=== PATIENT | male | born 1955 | race African-American/Black ===

== ENCOUNTER 2017-09-01 17:25 | Emergency (ER) | payer OTHER, MEDICARE ==
[~2017-09-01] VITALS: Ht 180.3 cm; Wt 56.8 kg
[~2017-09-01 17:25] MED LIST: TYLENOL 325MG325 MG PO
[2017-09-01 17:29] VITALS: TEMP 98.8
[2017-09-01] MEDS ORDERED: NORVASC 5MG5 MG/TAB PO (17:58)
[2017-09-01] MEDS ORDERED: ZYLOPRIM 300MG300 MG PO (17:58)
[2017-09-01 18:02] LABS: BASO % 0.4 % (0.0-2.0); EOS # 0.1 (0.0-0.7); EOS % 0.7 % (0-4.0); GRAN # 4.6 (1.4-6.5); GRAN % 66.4 % (42.2-75.2); HEMOGLOBIN 11.6 g/dl (13.5-18.0); LYMPH # 1.6 (1.2-3.4); LYMPH % 23.1 % (20.0-51.0); MEAN CELL VOLUME 89 fl (80.0-100.0); MEAN CORPUSCULAR HEMOGLOBIN 29 pg (27.0-31.0); MEAN CORPUSCULAR HGB CONC 32 g/dl (33.0-37.0); MEAN PLATELET VOLUME 8.9 fl (7.4-10.4); MONO # 0.6 (0.1-0.6); MONO % 9.1 % (1.7-9.3); PLATELET COUNT 297 K/mm3 (130-400); RED BLOOD COUNT 4.07 M/mm3 (4.20-5.60); REDCELL DISTRIBUTION WIDTH-CV 19.2 % (11.5-14.5)
[2017-09-01 18:15] LABS: BILIRUBIN,TOTAL 0.7 mg/dL (0.0-1.0); CALCIUM 9.3 mg/dL (8.4-10.2); POTASSIUM 4.3 mmol/L (3.4-5.0); TOTAL PROTEIN 8.7 gm/dL (6.4-8.2); URIC ACID 4.2 mg/dL (3.5-8.5)
[2017-09-01 18:19] LABS: CREATININE, serum 7.25 mg/dL (0.66-1.25)
[2017-09-01 18:34] LABS: ERYTHROCYTE SEDIMENTATION RATE 83 mm/hr (0-30)
[2017-09-01] MEDS ORDERED: ZYBAN150 M1 (18:51)
[2017-09-01] MEDS ORDERED: CEFTIN500 MG (18:52)
[2017-09-01] MEDS ORDERED: SENSIPAR30 MG PO (18:52)
[2017-09-01] MEDS ORDERED: PERCOCET 325 MG1 TA2 PO ×2 (18:52→19:38)
[2017-09-01] MEDS ORDERED: CIPRO 500MG TA500 MG (18:53)
[2017-09-01] MEDS ORDERED: PREDNISONE20 MG PO (19:38)
[2017-09-01 19:45] VITALS: BP 136/96; PULSE 93
== END 2017-09-01 19:45 | disposition home or self-care (01) ==
LOC: COL.ER 17:25
PROVIDERS: Emergency Medicine
DX: I12.0 Hypertensive chronic kidney disease with stage 5 chronic kidney disease or end stage renal disease (principal); N18.6 End stage renal disease; I82.C11 Acute embolism and thrombosis of right internal jugular vein; M06.9 Rheumatoid arthritis, unspecified; I10 Essential (primary) hypertension; Z99.2 Dependence on renal dialysis
CPT/HCPCS: J7512

== ENCOUNTER 2019-04-05 01:27 | Inpatient (IN) | payer MEDICARE, OTHER ==
[2019-04-05] VITALS (10 sets, daily range): BP systolic 150–191; BP diastolic 58–95; PULSE 79–103; TEMP 97.4–98.4
[~2019-04-05] VITALS: Ht 332.7 cm; Wt 60.2 kg
[~2019-04-05 01:27] MED LIST changes: +CEFTIN500 MG; +CIPRO 500MG TA500 MG; +NORVASC 5MG5 MG/TAB PO; +PERCOCET 325 MG1 TA2 PO; +PREDNISONE20 MG PO; +SENSIPAR30 MG PO; +ZYBAN150 M1; +ZYLOPRIM 300MG300 MG PO
[2019-04-05] MEDS ORDERED: NORCO 325 MG-51 TAB PO (03:32)
[2019-04-05] MEDS ORDERED: NEURONTIN100 MG/CAP PO (03:32)
[2019-04-05] MEDS ORDERED: FLOMAX 0.40.4 MG/CAP PO (03:33)
[2019-04-05] MEDS ORDERED: LEVOXYL0.2 MG PO (03:33)
[2019-04-05 07:04] LABS: BASO % 0.2 % (0.0-2.0); EOS % 0.1 % (0-4.0); GRAN # 7.9 (1.4-6.5); GRAN % 86.5 % (42.2-75.2); LYMPH # 0.8 (1.2-3.4); LYMPH % 8.6 % (20.0-51.0); MEAN CELL VOLUME 95 fl (80.0-100.0); MEAN CORPUSCULAR HGB CONC 31 g/dl (33.0-37.0); MEAN PLATELET VOLUME 9.8 fl (7.4-10.4); MONO # 0.4 (0.1-0.6); MONO % 4.1 % (1.7-9.3); PLATELET COUNT 208 K/mm3 (130-400); RED BLOOD COUNT 2.61 M/mm3 (4.20-5.60); REDCELL DISTRIBUTION WIDTH-CV 15.4 % (11.5-14.5)
[2019-04-05 07:14] LABS: HEMATOCRIT 24.9 % (42.0-52.0); HEMOGLOBIN 7.8 g/dl (13.5-18.0); MEAN CORPUSCULAR HEMOGLOBIN 30 pg (27.0-31.0)
[2019-04-05 07:18] LABS: ALANINE AMINOTRANSFERASE < 6 U/L (21-72); ALBUMIN 4.3 gm/dL (3.5-5.0); ALKALINE PHOSPHATASE 482 U/L (50-136); ANION GAP 19 mmol/L (7-16); AST,SGOT 19 U/L (15-37); BILIRUBIN,TOTAL 0.3 mg/dL (0.0-1.0); BLOOD UREA NITROGEN 95 mg/dL (9-20); CALCIUM 9.9 mg/dL (8.4-10.2); CARBON DIOXIDE 20 mmol/L (22-30); CHLORIDE 104 mmol/L (98-107); CREATININE, serum 10.44 (0.66-1.25); GLUCOSE 140 mg/dL (74-106); SODIUM 142 mmol/L (137-145); TOTAL PROTEIN 8.3 gm/dL (6.4-8.2)
[2019-04-05 07:31] LABS: POTASSIUM 7.6 mmol/L (3.4-5.0)
[2019-04-06] VITALS (11 sets, daily range): BP systolic 99–136; BP diastolic 49–77; PULSE 48–87; TEMP 97.7–97.9
[2019-04-06 06:09] LABS: BASO % 0.1 % (0.0-2.0); GRAN # 7.8 (1.4-6.5); GRAN % 84.5 % (42.2-75.2); LYMPH # 0.9 (1.2-3.4); LYMPH % 9.4 % (20.0-51.0); MEAN CELL VOLUME 94 fl (80.0-100.0); MEAN CORPUSCULAR HGB CONC 32 g/dl (33.0-37.0); MEAN PLATELET VOLUME 10.2 fl (7.4-10.4); MONO # 0.5 (0.1-0.6); MONO % 5.7 % (1.7-9.3); PLATELET COUNT 207 K/mm3 (130-400); RED BLOOD COUNT 3.23 M/mm3 (4.20-5.60); REDCELL DISTRIBUTION WIDTH-CV 15.2 % (11.5-14.5)
[2019-04-06 06:25] LABS: ALBUMIN 3.6 gm/dL (3.5-5.0); CALCIUM 9.7 mg/dL (8.4-10.2); CREATININE, serum 5.66 (0.66-1.25)
[2019-04-06 06:35] LABS: HEMATOCRIT 30.2 % (42.0-52.0); HEMOGLOBIN 9.6 g/dl (13.5-18.0); MEAN CORPUSCULAR HEMOGLOBIN 30 pg (27.0-31.0)
[2019-04-07 04:00] VITALS: BP 96/56; PULSE 74; TEMP 97.8
[2019-04-07 08:22] VITALS: BP 97/54; PULSE 75; TEMP 98.8
[2019-04-07 08:40] LABS: HEMATOCRIT 25.2 % (42.0-52.0); HEMOGLOBIN 7.9 g/dl (13.5-18.0)
[2019-04-07 12:43] VITALS: BP 94/41; PULSE 79; TEMP 98.1
[2019-04-07 16:00] VITALS: BP 104/43; PULSE 60; TEMP 97.2
[2019-04-07 19:19] VITALS: BP 98/48; PULSE 65; TEMP 97.6
[2019-04-07 23:36] VITALS: BP 94/58; PULSE 87; TEMP 97.6
[2019-04-08] VITALS (12 sets, daily range): BP systolic 94–112; BP diastolic 48–65; PULSE 64–97; TEMP 97.4–98.2
[2019-04-08 07:42] LABS: HEMOGLOBIN 6.6 g/dl (13.5-18.0)
[2019-04-08 07:43] LABS: HEMATOCRIT 20.6 % (42.0-52.0)
[2019-04-08 10:28] LABS: BILIRUBIN,TOTAL 0.2 mg/dL (0.0-1.0); CALCIUM 6.8 mg/dL (8.4-10.2); CREATININE, serum 8.08 (0.66-1.25); POTASSIUM 4.6 mmol/L (3.4-5.0); TOTAL PROTEIN 6.3 gm/dL (6.4-8.2)
[2019-04-08 10:35] LABS: KAPPA FREE LIGHT CHAIN-SERUM 289.84 mg/L (()); KAPPA LAMBDA RATIO 1.44 ratio (()); LAMDA FREE LIGHT CHAIN SERUM 201.26 mg/L (())
[2019-04-08 10:36] LABS: MEAN CELL VOLUME 94 fl (80.0-100.0); MEAN CORPUSCULAR HEMOGLOBIN 30 pg (27.0-31.0); MEAN CORPUSCULAR HGB CONC 32 g/dl (33.0-37.0); MEAN PLATELET VOLUME 10.2 fl (7.4-10.4); PLATELET COUNT 178 K/mm3 (130-400); RED BLOOD COUNT 2.21 M/mm3 (4.20-5.60); REDCELL DISTRIBUTION WIDTH-CV 15.3 % (11.5-14.5)
[2019-04-08 15:34] LABS: HEMATOCRIT 24.6 % (42.0-52.0); HEMOGLOBIN 7.9 g/dl (13.5-18.0)
[2019-04-09 03:37] VITALS: BP 100/57; PULSE 80; TEMP 97.8
[2019-04-09 07:27] VITALS: BP 98/62; PULSE 83; TEMP 98.4
[2019-04-09 16:10] VITALS: BP 125/59; PULSE 71; TEMP 97.9
[2019-04-09 20:17] VITALS: BP 131/61; PULSE 82; TEMP 97.7
[2019-04-10 04:51] VITALS: BP 118/64; PULSE 79; TEMP 98.7
[2019-04-10 07:08] LABS: BASO % 0.5 % (0.0-2.0); EOS # 0.2 (0.0-0.7); EOS % 4.6 % (0-4.0); GRAN # 2.6 (1.4-6.5); GRAN % 60.2 % (42.2-75.2); LYMPH # 1.1 (1.2-3.4); LYMPH % 26.4 % (20.0-51.0); MEAN CELL VOLUME 93 fl (80.0-100.0); MEAN CORPUSCULAR HGB CONC 31 g/dl (33.0-37.0); MEAN PLATELET VOLUME 9.7 fl (7.4-10.4); MONO # 0.4 (0.1-0.6); MONO % 8.1 % (1.7-9.3); PLATELET COUNT 212 K/mm3 (130-400); RED BLOOD COUNT 2.65 M/mm3 (4.20-5.60); REDCELL DISTRIBUTION WIDTH-CV 15.3 % (11.5-14.5)
[2019-04-10 07:11] LABS: ALBUMIN 3.1 gm/dL (3.5-5.0); CALCIUM 7.7 mg/dL (8.4-10.2); CREATININE, serum 7.17 (0.66-1.25); PHOSPHOROUS 5.1 mg/dL (2.5-4.5); POTASSIUM 3.8 mmol/L (3.4-5.0)
[2019-04-10 07:14] LABS: HEMATOCRIT 24.5 % (42.0-52.0); HEMOGLOBIN 7.7 g/dl (13.5-18.0); MEAN CORPUSCULAR HEMOGLOBIN 29 pg (27.0-31.0)
[2019-04-10 08:39] VITALS: BP 116/58; PULSE 75; TEMP 98.1
[2019-04-10 12:14] VITALS: BP 127/64; PULSE 80; TEMP 98
[2019-04-10 16:00] VITALS: BP 111/64; PULSE 73; TEMP 97.8
[2019-04-10 20:00] VITALS: BP 102/55; PULSE 87; TEMP 98.2
[2019-04-11 03:58] VITALS: BP 137/75; PULSE 80; TEMP 97.9
[2019-04-11 07:19] LABS: BASO % 0.2 % (0.0-2.0); EOS # 0.2 (0.0-0.7); EOS % 3.7 % (0-4.0); GRAN # 2.8 (1.4-6.5); GRAN % 61.3 % (42.2-75.2); LYMPH # 1.2 (1.2-3.4); LYMPH % 25.6 % (20.0-51.0); MEAN CELL VOLUME 92 fl (80.0-100.0); MEAN CORPUSCULAR HGB CONC 33 g/dl (33.0-37.0); MEAN PLATELET VOLUME 9.5 fl (7.4-10.4); MONO # 0.4 (0.1-0.6); PLATELET COUNT 217 K/mm3 (130-400); REDCELL DISTRIBUTION WIDTH-CV 15.2 % (11.5-14.5)
[2019-04-11 07:22] LABS: HEMOGLOBIN 7.8 g/dl (13.5-18.0); MEAN CORPUSCULAR HEMOGLOBIN 30 pg (27.0-31.0)
[2019-04-11 07:40] VITALS: BP 136/68; PULSE 84; TEMP 98.2
[2019-04-11 07:42] LABS: ALBUMIN 3.1 gm/dL (3.5-5.0); CALCIUM 7.9 mg/dL (8.4-10.2); CREATININE, serum 8.45 (0.66-1.25); PHOSPHOROUS 5.3 mg/dL (2.5-4.5); POTASSIUM 3.9 mmol/L (3.4-5.0)
[2019-04-11] MEDS ORDERED: PHOSLO667 MG PO (10:10)
[2019-04-11] MEDS ORDERED: REGLAN 5MG T5 MG/TAB PO (10:11)
[2019-04-11] MEDS ORDERED: SENSIPAR30 MG PO (10:12)
[2019-04-11] MEDS ORDERED: ASPIRIN 32325 MG/TA1 PO (10:13)
[2019-04-11 12:00] VITALS: BP 152/76; PULSE 80; TEMP 98.1
[2019-04-11 12:10] LABS: A/G RATIO (PEP) 0.85 (()); BETA GLOBULINS (PEP) 0.9 g/dL (0.7-1.2)
== END 2019-04-11 13:38 | DRG 469 ==
LOC: SURG 01:27
PROVIDERS: Physician Assistant; ADMIT Internal Medicine Nephrology
PROC: 0SRR019 Replacement of Right Hip Joint, Femoral Surface with Metal Synthetic Substitute, Cemented, Open Approach (ICD-10-PCS; principal; 2019-04-05)
PROC: 5A1D70Z Performance of Urinary Filtration, Intermittent, Less than 6 Hours Per Day (ICD-10-PCS; 2019-04-05)
DX: S72.001A Fracture of unspecified part of neck of right femur, initial encounter for closed fracture (principal); N18.6 End stage renal disease; N25.81 Secondary hyperparathyroidism of renal origin; I50.30 Unspecified diastolic (congestive) heart failure; I13.2 Hypertensive heart and chronic kidney disease with heart failure and with stage 5 chronic kidney disease, or end stage renal disease; M10.9 Gout, unspecified; G89.29 Other chronic pain; D63.1 Anemia in chronic kidney disease; F17.210 Nicotine dependence, cigarettes, uncomplicated; W01.0XXA Fall on same level from slipping, tripping and stumbling without subsequent striking against object, initial encounter; E87.5 Hyperkalemia; E89.0 Postprocedural hypothyroidism; R74.8 Abnormal levels of other serum enzymes; N40.0 Benign prostatic hyperplasia without lower urinary tract symptoms; Z99.2 Dependence on renal dialysis; Z79.891 Long term (current) use of opiate analgesic; Y93.89 Activity, other specified; Y92.009 Unspecified place in unspecified non-institutional (private) residence as the place of occurrence of the external cause; Y99.8 Other external cause status; Z91.19 Patient's noncompliance with other medical treatment and regimen
CPT/HCPCS: A9284; C1776; J0690; J0882; J1644; J2250; J2270; J2795; J3010; J7030; P9016; Q5105

== ENCOUNTER 2019-04-11 11:20 | Inpatient (IN) | payer MEDICARE, OTHER ==
[~2019-04-11] VITALS: Ht 180.3 cm; Wt 65.9 kg
[~2019-04-11 11:20] MED LIST changes: +ASPIRIN 32325 MG/TA1 PO; +FLOMAX 0.40.4 MG/CAP PO; +LEVOXYL0.2 MG PO; +NEURONTIN100 MG/CAP PO; +NORCO 325 MG-51 TAB PO; +PHOSLO667 MG PO; +REGLAN 5MG T5 MG/TAB PO
[2019-04-11 15:24] VITALS: BP 137/59; PULSE 81; TEMP 97.8
[2019-04-11 17:56] VITALS: BP 137/59; PULSE 81; TEMP 97.8
--- NOTE | 2019-04-11 19:55 | NUR ---
Patient came to [facility] Room #339 this afternoon following his dialysis. Patient did not want his lunch, but a friend dropped off some [employer] food for him, of which he took a few bites. Patient refused doing OT this afternoon. He did allow staff to stand him one time, but said a few cuse words in the process. Aquacel to Rt hip was changed out due to it being rolled up on his bottom and the wound was exposed. Small bloody drainage was observed to area, steri strips in place. Aquacel was secured over area. Will continue to monitor.
--- NOTE | 2019-04-11 20:00 | NUR ---
PATIENT LAYING IN BED DURING SHIFT CHANGE REPORT FROM DAY SHIFT NURSE. BED ALARM ENGAGED. DENIES ANY NEED FOR PAIN MED AT TIME OF REPORT.
--- NOTE | 2019-04-12 02:54 | NUR ---
Patient resting with eyes closed, does not awaken when room entered. Breathing nonlabored and even. Bed alarm engaged.
--- NOTE | 2019-04-12 04:39 | NUR ---
RESTING WITH EYES CLOSED, DOES NOT AWAKEN WHEN ROOM ENTERED, BREATHING NONLABORED AND EVEN. BED ALARM ENGAGED.
[2019-04-12 05:11] VITALS: BP 149/75; PULSE 92; TEMP 97.9
--- NOTE | 2019-04-12 07:10 | NUR ---
PATIENT RESTING IN BED WITH EYES CLOSED DURING SHIFT CHANGE REPORT GIVEN TO DAY SHIFT NURSE. DOES NOT AWAKEN WHEN ROOM ENTERED. BED ALARM ENGAGED.
[2019-04-12 13:56] LABS: BASO % 0.3 % (0.0-2.0); EOS # 0.1 (0.0-0.7); EOS % 2.3 % (0-4.0); GRAN # 2.8 (1.4-6.5); GRAN % 71.9 % (42.2-75.2); LYMPH # 0.8 (1.2-3.4); LYMPH % 19.8 % (20.0-51.0); MEAN CELL VOLUME 94 fl (80.0-100.0); MEAN CORPUSCULAR HGB CONC 32 g/dl (33.0-37.0); MEAN PLATELET VOLUME 9.2 fl (7.4-10.4); MONO # 0.2 (0.1-0.6); MONO % 5.2 % (1.7-9.3); PLATELET COUNT 198 K/mm3 (130-400); RED BLOOD COUNT 2.75 M/mm3 (4.20-5.60); REDCELL DISTRIBUTION WIDTH-CV 15.5 % (11.5-14.5)
[2019-04-12 13:59] LABS: HEMATOCRIT 25.7 % (42.0-52.0); HEMOGLOBIN 8.2 g/dl (13.5-18.0); MEAN CORPUSCULAR HEMOGLOBIN 30 pg (27.0-31.0)
[2019-04-12 14:14] LABS: CALCIUM 8.6 mg/dL (8.4-10.2); CREATININE, serum 3.94 (0.66-1.25); POTASSIUM 3.6 mmol/L (3.4-5.0)
--- NOTE | 2019-04-12 16:21 | NUR ---
Patient went to dialysis approx. 1300 today. This nurse received report from [place] stating that she pulled off 800 ml today. Current vital signs prior to returning back to [facility] are BP 135/70; P 93; T 98.6 per NANCY Coleman. SKI BINDING FITTER AND REPAIRER has left to go pickup driver patient from room #18. Patient's next dialysis day is Monday.
[2019-04-12 16:30] VITALS: BP 122/59; PULSE 93; TEMP 98.6
--- NOTE | 2019-04-12 17:12 | NUR ---
TAYLOR met with the patient to complete initial intake, as the patient is new to [facility]. The patient lives in [place] with his two sons': Lc (ph#[phone]) and Aristides and his grandchildren. He reports independence with ADLs prior to hospitalization and has a cane, walker, and wheelchair. The patient states that he does not have a PCP and states that he plans to get one through the [facility] after discharge. He states that if he ever needed medications, that he went through [facility] to get one. TAYLOR discussed setting up a family meeting. The patient did not appear interested in one, but was agreeable for TAYLOR to contact his son to get one set up. TAYLOR contacted Lc and he states that he could do a family meeting on Monday, 04/15, at 1100. TAYLOR to inform [facility] Director and will continue to follow.
--- NOTE | 2019-04-12 20:00 | NUR ---
Patient was asked to do therapies today, but refused most of them. He was very agitated with staff at times. He refused any pain meds, but was educated on the need to take them so that he can tolerate the therapies. Patient did eat some of his meals this shift along with his Nepro this evening. He is currently resting in bed, call light in reach, bed alarm on and SCD's on. This nurse reported off to night nurse.
--- NOTE | 2019-04-12 20:00 | NUR ---
PT RESTING IN BED. 2:1 REPOSITIONED. PT C/O RT HIP PAIN. YELLS OUT WITH REPOSITIONING. DISCUSSED IMPORTANCE OF PAIN MED ALLOWS HIM TO MOVE EASIER. PT AGREED TO PAIN MED NOW. SCD'S ON BILAT.
--- NOTE | 2019-04-12 21:00 | NUR ---
PAIN BETTER NOW. PT WANTS TO TRANSFER TO RECLINER. MAX 1:1 PIVOT TRANSFER TO RECLINER. FEET ELEVATED. CHAIR ALARM SET. CALL LIGHT IN REACH. TOOK HS SNACK. NO FURTHER NEEDS AT THIS TIME.
--- NOTE | 2019-04-13 02:00 | NUR ---
PT READY TO RETURN TO BED. 2:1 TRANSFER. PT TOLERATED WELL WITH WALKER. PT AGREEABLE TO SCD'S. NOTED BRENNAN ROLED OFF PARTIAL INCISION. REPLACED DRSG AT THIS TIME. INCISION WELL APRROXIMATED. MIN DRAINAGE. PT VERY HUNGRY TONIGHT. OFFERED HALF SANDWICH. PT VERY [place]. PT COMPLIANT WITH CARES THIS SHIFT THUS FAR. CALL LIGHT IN REACH. BED ALARM SET.
[2019-04-13 04:39] VITALS: BP 135/59; PULSE 78; TEMP 98.5
--- NOTE | 2019-04-13 08:35 | NUR ---
Report from NANCY Turner. Set up assist for breakfast provided while pt in bed. OT working with pt on dressing, he is sitting bedside, took pills whole with water. Pt is disagreeable with OT, unable to multitask multiple questions/choices and gets frustrated, tells OT not to rust an old man. Received norco at 0631 and rates pain 2/10 at this time. Pt in yellow gown/grippers/band. Has coband around LFA fistula w/o drainage. Hands are very disfigured.
[2019-04-13 16:46] VITALS: BP 119/61; PULSE 92; TEMP 98.2
--- NOTE | 2019-04-13 18:13 | NUR ---
Bed alarm on, call lt in reach, pt wants to eat mac and cheese and chicken from outside source.
--- NOTE | 2019-04-13 21:00 | NUR ---
PT UP TO BSC. HAD LG LOOSE BROWN STOOL. THEN TRANSFERRED TO RECLINER. SEE MAR FOR PAIN MED GIVEN. CHAIR ALARM SET. CALL LIGHT IN REACH. NO OTHER NEEDS AT THIS TIME.
--- NOTE | 2019-04-14 01:00 | NUR ---
PT READY TO GO TO BED. SLID DOWN IN RECLINER. 2:1 ASSIST TO BED. NEEDS MUCH CUING RE SAFETY WITH WALKER. CALL LIGHT IN REACH. BED ALARM SET. READY FOR SLEEP. DENIES NEED FOR PAIN MED.
[2019-04-14 05:25] VITALS: BP 137/67; PULSE 93; TEMP 98.6
--- NOTE | 2019-04-14 07:44 | NUR ---
Report from NANCY Turner. CHRISTINA Ferrell assisted pt OOB to chair with walker, pt set up for breakfast.
--- NOTE | 2019-04-14 08:03 | NUR ---
BLE up in recliner, TEDS, SCDs, yellow grippers/gown/wrist band in place, call lt in reach, alarm on. Took pills whole with water. Likes large ice cubes (only in kitchen now). Pt confused about not already taking his morning meds. Has nepro on tray, poor intake at breakfast.
--- NOTE | 2019-04-14 11:48 | NUR ---
Refused lunch except grapes, left nepro. Ordered dawson montalvo
--- NOTE | 2019-04-14 12:03 | NUR ---
Dr. Spivey verified pt's fluid restriction as 1500 ml/day and general diet d/t malnutrition.
[2019-04-14 15:08] VITALS: BP 110/56; PULSE 96; TEMP 98
--- NOTE | 2019-04-14 17:35 | NUR ---
Pt was assisted to chair for supper, foam in chair to make more comfortable, TEDS, yellow gown/grippers in place, call lt in reach, chair alarm on.
--- NOTE | 2019-04-14 19:31 | NUR ---
Pt falling asleep in chair while eating supper, watching FB game. Chair alarm on, call lt in reach. Report to NANCY Plascencia. Dressing to rt hip intact.
[2019-04-15 05:02] VITALS: BP 118/60; PULSE 90; TEMP 98.2
--- NOTE | 2019-04-15 06:46 | NUR ---
PT IN BED. DENIED NEED FOR PAIN MEDS. PT UP TO COMMODE AND VOIDED x1. JENNIFER CD&I.
--- NOTE | 2019-04-15 12:57 | NUR ---
SW attended a family meeting with the patient and his son, Lc. Also present was IPR Director, PT, OT, & ST. IPR Director started by explaining the purspose of the meeting. PT/OT/ST then discussed the patient's progress with therapy so far. The patient had declined therapy services this morning. The patient states that he is wanting to go home. The patient's attending, Dr. Spivey has been notified. The team answered all questions. SW to continue to follow.
--- NOTE | 2019-04-15 13:29 | NUR ---
Admission QIM scores were reviewed by the team. Code of 2 chosen for toileting hygiene was determined by team discussion to be the most usual performance before interventions for this patient during the assessment period. Code of 3 chosen for toilet transfers was determined by team discussion to be the most usual performance before interventions for this patient during the assessment period. Code of 3 chosen for sit to lying was determined by team discussion to be the most usual performance for this patient during the assessment period. Code of 3 chosen for lying to sitting on side of bed was determined by team discussion to be the most usual performance for this patient during the assessment period.--Trina Mack,
[2019-04-15 14:53] LABS: BASO % 0.2 % (0.0-2.0); EOS # 0.1 (0.0-0.7); EOS % 2.7 % (0-4.0); GRAN # 3.4 (1.4-6.5); GRAN % 70.6 % (42.2-75.2); HEMATOCRIT 24.2 % (42.0-52.0); HEMOGLOBIN 7.6 g/dl (13.5-18.0); LYMPH # 0.9 (1.2-3.4); LYMPH % 18.5 % (20.0-51.0); MEAN CELL VOLUME 96 fl (80.0-100.0); MEAN CORPUSCULAR HEMOGLOBIN 30 pg (27.0-31.0); MEAN CORPUSCULAR HGB CONC 31 g/dl (33.0-37.0); MEAN PLATELET VOLUME 9.5 fl (7.4-10.4); MONO # 0.4 (0.1-0.6); MONO % 7.4 % (1.7-9.3); PLATELET COUNT 202 K/mm3 (130-400); RED BLOOD COUNT 2.53 M/mm3 (4.20-5.60)
[2019-04-15 15:09] LABS: CALCIUM 9.2 mg/dL (8.4-10.2); CREATININE, serum 4.79 (0.66-1.25); POTASSIUM 3.8 mmol/L (3.4-5.0)
[2019-04-15 18:29] VITALS: BP 104/48; PULSE 94; TEMP 98.9
--- NOTE | 2019-04-15 20:00 | NUR ---
PATIENT RESTING IN BED DURING SHIFT CHANGE REPORT FROM DAY SHIFT NURSE. BED ALARM ENGAGED.
[2019-04-15 22:20] VITALS: BP 121/57; PULSE 91; TEMP 98.5
--- NOTE | 2019-04-15 22:39 | NUR ---
TRANSFUSION RATE SET AT 60ML/HR AT START OF TRANSFUSION.
--- NOTE | 2019-04-15 22:39 | NUR ---
BLOOD TRANSFUSION, 1ST UNIT INFUSION STARTED
[2019-04-15 22:53] VITALS: BP 130/59; PULSE 92; TEMP 99.4
--- NOTE | 2019-04-15 22:55 | NUR ---
PATIENT DENIES CHILLS/CHEST PAIN/SHORTNESS OF BREATH/BACK DISCOMFORT. BLOOD TRANSFUSION RATE INCREASED TO 110ML/HR.
[2019-04-15 23:45] VITALS: BP 147/64; PULSE 89; TEMP 99
--- NOTE | 2019-04-15 23:55 | NUR ---
BLOOD TRANSFUSION RATE INCREASED TO 120ML/HR AFTER PATIENT DENIES CHILLS/CHEST PAIN/SHORTNESS OF BREATH/BACK DISCOMFORT. PATIENT TOLERATING BLOOD TRANSFUSION WITH NO C/O.
--- NOTE | 2019-04-15 23:55 | NUR ---
PATIENT DENIES CHILLS/CHEST PAIN/SHORTNESS OF BREATHE/BACK PAIN. BLOOD TRANSFUSION RATE INCREASED TO 110ML/HR.
[2019-04-16 01:07] VITALS: BP 125/54; PULSE 100; TEMP 99.1
--- NOTE | 2019-04-16 01:41 | NUR ---
2ND UNIT LRPRBC PER DO PER IV SITE. CONTINUES TO DENY CHILLS,CHEST PAIN,SHORTNESS OF BREATHE,BACK PAIN. CHAIR ALARM ENGAGED
[2019-04-16 01:55] VITALS: BP 116/50; PULSE 95; TEMP 99
--- NOTE | 2019-04-16 02:02 | NUR ---
PATIENT DENIES CHEST PAIN,CHILLS,SOB,BACK PAIN. BLOOD INFUSION RATE INCREASED TO 110ML/HR.
[2019-04-16 02:52] VITALS: BP 144/88; PULSE 97; TEMP 99.2
--- NOTE | 2019-04-16 02:53 | NUR ---
DENIES CHEST PAIN/CHILLS/SHORTNESS OF BREATH/BACK DISCOMFORT. BLOOD TRANSFUSION RATE INCREASED TO 120ML/HR.
[2019-04-16 04:15] VITALS: BP 129/60; PULSE 91; TEMP 98.5
[2019-04-16 04:36] VITALS: BP 140/66; PULSE 86; TEMP 98.6
--- NOTE | 2019-04-16 07:46 | NUR ---
PATIENT RESTING IN BED DURING SHIFT CHANGE REPORT GIVEN TO DAY SHIFT NURSE. BED ALARM ENGAGED
--- NOTE | 2019-04-16 09:11 | NUR ---
PT REFUSING THERAPY AND SAID HIS SONS WILL COME TO PICK HIM UP TODAY.
[2019-04-16] MEDS ORDERED: REGLAN 5MG T5 MG/TAB PO (09:50)
[2019-04-16 10:21] LABS: HEMATOCRIT 28.8 % (42.0-52.0); HEMOGLOBIN 9.1 g/dl (13.5-18.0)
--- NOTE | 2019-04-16 10:55 | NUR ---
PT WORKED WITH OT AND GOT INTO WHEEL CHAIR. PT WAITING FOR ORDRES TO DISCHARGE.
--- NOTE | 2019-04-16 13:24 | NUR ---
The patient is still refusing therapy and would like to return home. Dr. Spivey and Dr. Collado were both notified. The patient is to discharge back home with his son's today, 04/16. TAYLOR followed up with the patient to discuss home health services. The patient reports that he is not interested in home health at this time, but he was interested in obtaining Medicare.gov's list of home health agencies that serve [place]. TAYLOR provided. Transportation back home to be provided by his son. The patient had no other questions or concerns for SW about discharge. TAYLOR presented and explained the IM form to the patient. The patient verbalized understanding, signed, and he was provided a copy. No additional needs at this time.
--- NOTE | 2019-04-16 15:34 | NUR ---
DISCHARGE ORDERS GIVEN AND QUESTIONS ANSWERED, PT TAKEN BY WHEEL CHAIR AND TRANSFERED SBA X1 TO VEHICLE.
== END 2019-04-16 15:35 | disposition home or self-care (01) | DRG 559 ==
PROVIDERS: Internal Medicine Nephrology; ADMIT Internal Medicine
PROC: 5A1D70Z Performance of Urinary Filtration, Intermittent, Less than 6 Hours Per Day (ICD-10-PCS; principal; 2019-04-12)
DX: S72.001D Fracture of unspecified part of neck of right femur, subsequent encounter for closed fracture with routine healing (principal); N18.6 End stage renal disease; I12.0 Hypertensive chronic kidney disease with stage 5 chronic kidney disease or end stage renal disease; E44.0 Moderate protein-calorie malnutrition; Z68.1 Body mass index [BMI] 19.9 or less, adult; W18.30XD Fall on same level, unspecified, subsequent encounter; G89.29 Other chronic pain; E83.51 Hypocalcemia; D63.1 Anemia in chronic kidney disease; N40.0 Benign prostatic hyperplasia without lower urinary tract symptoms; E89.0 Postprocedural hypothyroidism; E74.39 Other disorders of intestinal carbohydrate absorption; M10.9 Gout, unspecified; F17.210 Nicotine dependence, cigarettes, uncomplicated; Z79.82 Long term (current) use of aspirin; Z79.891 Long term (current) use of opiate analgesic; Z99.2 Dependence on renal dialysis; Z96.641 Presence of right artificial hip joint
CPT/HCPCS: 99222-AI; 99232-AI; J7030; P9016

== ENCOUNTER 2019-04-30 12:18 | Inpatient (IN) | payer MEDICARE, OTHER ==
[~2019-04-30] VITALS: Ht 172.7 cm; Wt 56.8 kg
[2019-04-30 13:12] LABS: BASO % 0.4 % (0.0-2.0); EOS % 0.5 % (0-4.0); GRAN % 75.2 % (42.2-75.2); LYMPH # 1.4 (1.2-3.4); LYMPH % 17.9 % (20.0-51.0); MEAN CELL VOLUME 94 fl (80.0-100.0); MEAN CORPUSCULAR HGB CONC 31 g/dl (33.0-37.0); MEAN PLATELET VOLUME 9.8 fl (7.4-10.4); MONO # 0.4 (0.1-0.6); MONO % 5.5 % (1.7-9.3); PLATELET COUNT 389 K/mm3 (130-400); RED BLOOD COUNT 3.09 M/mm3 (4.20-5.60); REDCELL DISTRIBUTION WIDTH-CV 17.4 % (11.5-14.5)
[2019-04-30 13:13] LABS: HEMATOCRIT 29.1 % (42.0-52.0); HEMOGLOBIN 8.9 g/dl (13.5-18.0); INR 1.1 (0.8-3.0); MEAN CORPUSCULAR HEMOGLOBIN 29 pg (27.0-31.0); PROTHROMBIN TIME 13.3 SECONDS (9.7-12.8)
[2019-04-30 13:24] LABS: ALANINE AMINOTRANSFERASE < 6 U/L (21-72); ALBUMIN 4.2 gm/dL (3.5-5.0); ALKALINE PHOSPHATASE 371 U/L (50-136); ANION GAP 22 mmol/L (7-16); AST,SGOT 20 U/L (15-37); BILIRUBIN,TOTAL 0.6 mg/dL (0.0-1.0); C-REACTIVE PROTEIN 8.9 mg/dL (0.0-0.9); CHLORIDE 110 mmol/L (98-107); GLUCOSE 108 mg/dL (74-106); SODIUM 146 mmol/L (137-145); TOTAL PROTEIN 8.6 gm/dL (6.4-8.2)
[2019-04-30 13:27] LABS: CREATININE, serum 16.47 (0.66-1.25)
[2019-04-30 13:36] LABS: BLOOD UREA NITROGEN 171 mg/dL (9-20)
[2019-04-30 13:41] LABS: CARBON DIOXIDE 14 mmol/L (22-30); POTASSIUM 8.6 mmol/L (3.4-5.0); TROPONIN-I 0.833 ng/mL (0.000-0.035)
[2019-04-30 16:48] LABS: POTASSIUM 4.8 mmol/L (3.4-5.0)
[2019-04-30 16:57] LABS: TROPONIN-I 3 HR POST INITIAL 0.867 ng/mL (0.000-0.034)
--- NOTE | 2019-04-30 19:07 | NUR ---
REPORT TO DARREN
--- NOTE | 2019-04-30 20:46 | NUR ---
dr. whaley called and ok with sunil graf, scds. chest xray and ekg in er. does not want pt on morphine or to have gibbons inserted.
--- NOTE | 2019-04-30 20:54 | NUR ---
Pt lying in bed. Is alert but not oriented. Yells out in pain but not able to describe pain. Pt unable to answer most questions. Assessment B done based on prior hospitalization. Pt on tele and is currently in normal sinus. Pt fractured R hip and is on dialysis. Tropoin was initially elevated but trending down. Pt to be NPO at midnight as he is going for stress test tomorrow. Has IV int to right forearm and fistula to left. Pt is on o2 at 2L. Call light within reach, will continue to monitor
[2019-04-30 21:37] VITALS: BP 136/61; PULSE 85; TEMP 98
[2019-05-01] VITALS (15 sets, daily range): BP systolic 89–148; BP diastolic 51–71; PULSE 61–90; TEMP 98–99.6
--- NOTE | 2019-05-01 04:14 | NUR ---
PRN norco given.
[2019-05-01 07:32] LABS: BASO % 0.5 % (0.0-2.0); EOS # 0.1 (0.0-0.7); EOS % 1.7 % (0-4.0); GRAN # 4.9 (1.4-6.5); GRAN % 74.5 % (42.2-75.2); LYMPH % 14.9 % (20.0-51.0); MEAN CELL VOLUME 93 fl (80.0-100.0); MEAN CORPUSCULAR HGB CONC 31 g/dl (33.0-37.0); MEAN PLATELET VOLUME 9.6 fl (7.4-10.4); MONO # 0.5 (0.1-0.6); MONO % 7.9 % (1.7-9.3); PLATELET COUNT 306 K/mm3 (130-400); RED BLOOD COUNT 2.66 M/mm3 (4.20-5.60)
[2019-05-01 07:35] LABS: HEMATOCRIT 24.7 % (42.0-52.0); HEMOGLOBIN 7.6 g/dl (13.5-18.0); MEAN CORPUSCULAR HEMOGLOBIN 29 pg (27.0-31.0)
[2019-05-01 07:42] LABS: ALBUMIN 3.2 gm/dL (3.5-5.0); CALCIUM 10.6 mg/dL (8.4-10.2); CREATININE, serum 9.62 (0.66-1.25); PHOSPHOROUS 7.9 mg/dL (2.5-4.5); POTASSIUM 5.7 mmol/L (3.4-5.0)
--- NOTE | 2019-05-01 08:00 | NUR ---
Patient resting in bed at this time. Patient sleeping at this time, rouses with some effort and answers some questions appropriately. Stage I ulcer on back of right heel, applied heel protectors. Bed alarm on, call light within reach.
--- NOTE | 2019-05-01 13:57 | NUR ---
Initial visit; Patient thanked Retail Event And Sales Assistant for looking in on him and offering spiritual care, also letting him know he will be offered Holy Communion while he is a patient here at [facility].
--- NOTE | 2019-05-01 17:28 | NUR ---
It Corporate Recruiter attempted intake with patient who is in dialysis. Patient's RN advised he was drowsy. Patient did let SW know he lives in [place] with his two sons before falling asleep. SW attempted to ask patient further questions with no response. SW will follow up tomorrow.
--- NOTE | 2019-05-01 18:32 | NUR ---
Patient returns to the floor from dialysis. Patient is sleeping but rousable, patient reports 8/10 pain when awake. Administered PRN pain medication. Patient states he will eat later when his pain medication takes effect. Patient denies needs at this time, call light within reach, bed alarm on.
--- NOTE | 2019-05-01 20:25 | NUR ---
Pt in bed, calling out for his son. Reminded patient where he is, verbalizes understanding. Takes HS meds at this time with dose of Dilaudid 0.5mg IVP for pain to right hip. SL to right forearm without redness or swelling. Has both feet in heel boots, soft heel to right foot. Has AV fistula to left forearm with good bruit. Keeps eyes closed while assessment is done.
[2019-05-02] VITALS (14 sets, daily range): BP systolic 85–126; BP diastolic 33–86; PULSE 67–99; TEMP 98–98.1
--- NOTE | 2019-05-02 03:30 | NUR ---
Patient has gown off and doesn't know where he is. Reoriented and blankets replaced. Denies needs at this time.
--- NOTE | 2019-05-02 04:30 | NUR ---
PATIENT MOANING, MEDICATED WITH AM MEDS INCLUDING NORCO 5/325MG 1 TAB AT THIS TIME. PT REPORTS HE IS HUNGRY, DID ADVISE WE WERE GOING TO KEEP HIM ONLY ON SIPS OF WATER UNTIL DOC'S DECIDE IF HE NEEDS A HEART CATH TODAY.
--- NOTE | 2019-05-02 04:55 | NUR ---
MEDICATED WITH DILAUDID 0.5MG IVP FOR CONTINUED RT LEG PAIN. ATTEMPTED REPOSITIONING WITHOUT SUCCESS PT WAS YELLING TOO LOUDLY IN PAIN.
[2019-05-02 07:21] LABS: BASO % 0.5 % (0.0-2.0); EOS # 0.1 (0.0-0.7); GRAN # 4.7 (1.4-6.5); GRAN % 70.7 % (42.2-75.2); LYMPH # 1.1 (1.2-3.4); LYMPH % 16.4 % (20.0-51.0); MEAN CELL VOLUME 90 fl (80.0-100.0); MEAN CORPUSCULAR HGB CONC 32 g/dl (33.0-37.0); MEAN PLATELET VOLUME 9.8 fl (7.4-10.4); MONO # 0.6 (0.1-0.6); MONO % 9.6 % (1.7-9.3); PLATELET COUNT 308 K/mm3 (130-400)
[2019-05-02 07:23] LABS: HEMATOCRIT 30.5 % (42.0-52.0); HEMOGLOBIN 9.7 g/dl (13.5-18.0); MEAN CORPUSCULAR HEMOGLOBIN 29 pg (27.0-31.0)
[2019-05-02 07:24] LABS: CALCIUM 9.7 mg/dL (8.4-10.2); CREATININE, serum 7.2 (0.66-1.25); PHOSPHOROUS 6.8 mg/dL (2.5-4.5); POTASSIUM 4.7 mmol/L (3.4-5.0)
--- NOTE | 2019-05-02 08:00 | NUR ---
Patient resting in bed at this time. Patient periodically cries out in his sleep, when awake patient rates his pain 8/10, administered PRN pain medication per orders. Patient NPO for a cardiac cath and possible hip surgery today. Patient denies needs, call light within reach, bed alarm on.
--- NOTE | 2019-05-02 10:35 | NUR ---
TAYLOR met with the patient to complete initial assessment. The patient lives in [place] with his two sons. The patient has a cane and a walker and reports independence with ADLs. The patient reports he does not have a PCP and receives medications from [facility]. The patient has advanced directives but they designate his , unfortunately his passed way several months ago. The patient was interested in new DPOA-HC form. Form provided. financial services assistant will continue to follow to ensure a safe discharge.
--- NOTE | 2019-05-02 16:26 | NUR ---
SEE MERGE DOCUMENTATION FOR MEDICATION ADMINISTRATION TIMES AND INTRA/POST PROCEDURE SEDATION ASSESSMENTS. PT TRANSFERED TO PROCEDURE TABLE VIA SLIDE BOARD; RIGHT LEG SPLINTED WITH PILLOWS TO MAINTAIN POSITIONING. RIGHT DP/PT PULSES EASILY LOCATED WITH DOPPLER AFTER TRANSFER.
--- NOTE | 2019-05-02 17:30 | NUR ---
Pt transferred to 345 at this time. VS monitoring connected, VS's WNL. Bedside handoff to NANCY Lawson at this time. Right radial site assessed; TR band in place with 13mL air in band. Radial pulse palpable distal to band, SPO2 pleth wave adequate. Right foot DP pulses +2 at this time. All questions from pt and family answered.
--- NOTE | 2019-05-02 17:30 | NUR ---
Patient back to floor from open hearth laborer via bed. Patient resting in bed at this time, son at bedside. Puncture site in right radius with a TR band with [address] of pressure in place, puncture is CDI, pulse palpable in right hand. Bed alarm on, call light within reach.
--- NOTE | 2019-05-02 19:30 | NUR ---
COMPRESSION BAND DEFLATED BY 5 ML ORDERED, DURING SHIFT CHANGE REPORT BY DAY SHIFT NURSE, OBSERVED BLEEDING, BAND REINFLATED WITH 5 ML AND BLEEDING STOPPED, WILL RECHECK SITE PER POST PROCEDURE ORDERS. PATIENT WITH NO COMPLAINTS CURRENTLY.
--- NOTE | 2019-05-02 20:12 | NUR ---
NO ACTIVE BLEEDING WHEN COMPRESSION BAND DEFLATED BY 5 ML, DEFLATED COMPRESSION BAND COMPLETELY AND REMOVED AND DRESSING APPLIED PER POST PROCEDURE ORDERS. PATIENT C/O RIGHT LEG PAIN, INITIALLY ASKED FOR PAIN MED THEN DEMANDED TO HAVE COFFEE CAKE THAT WAS ON THE TV SHOW, FOR THIS NURSE TO PUSH ON THE TV "BUTTON" AND CHECK BEHIND THE TV STATING HE KNEW IT WAS THERE FOR STAFF TO GET FOR HIM, THEN PATIENT STARTED TO RAISE HIS VOICE AT STAFF STATING THAT STAFF WAS CAUSING THE PAIN IN HIS LEG INORDER FOR STAFF TO GIVE HIM MORE PAIN MEDS. WHEN ASKED IF PATIENT WAS HAVING PAIN, PATIENT DENIED PAIN AND DENIED NEEDING PAIN MEDS. REQUESTED AND GIVEN MORE APPLE JUICE AND ICE FOR WATER.
--- NOTE | 2019-05-02 20:20 | NUR ---
5 ML REMOVED FROM POST ANGIO DEVICE, NO BLEEDING OBSERVED. PATIENT WITH NO COMPLAINTS.
--- NOTE | 2019-05-02 21:18 | NUR ---
PATIENT INSISTANT HE CAN GET COFFEE CAKE IF TV IN HIS ROOM IS PUSHED, THAT IT IS A BUTTON AND REFUSING TO HAVE SL FLUSH DONE, TOOK SCHEDULED MEDS FOR HS. PATIENT INITIALLY REQUESTED APPLE JUICE THEN REFUSED. INITIALLY ASKED FOR PAIN PILL FOR RIGHT HIP PAIN THEN REFUSED AFTER STATING STAFF WAS MAKING HIM HAVE PAIN USING COMPUTERS.
--- NOTE | 2019-05-02 21:45 | NUR ---
PATIENT INTERMITTANTLY COOPERATIVE WITH STAFF, CONTINUES TO REFUSE PAIN, OBSERVING FACIAL GRIMACING BUT DENIES ANY NEEDS.
[2019-05-03 00:06] VITALS: BP 92/44; PULSE 79; TEMP 98.2
--- NOTE | 2019-05-03 03:30 | NUR ---
PATIENT REFUSING TO REPOSITION THIS SHIFT DUE TO DISCOMFORT DESPITE INFORMATION GIVEN TO HELP AVOID INCREASED SKIN PROBLEMS AND PREVENTION OF BLOOD CLOTS. REFUSES PAIN MEDS WHEN OFFER, PATIENT COMPLAINING HE DOES NOT NEED ANY PAIN MEDS.
[2019-05-03 05:02] VITALS: BP 140/81; PULSE 77; TEMP 98.4
[2019-05-03 07:37] LABS: BASO % 0.3 % (0.0-2.0); EOS # 0.1 (0.0-0.7); EOS % 1.9 % (0-4.0); GRAN # 4.7 (1.4-6.5); GRAN % 72.7 % (42.2-75.2); HEMATOCRIT 30.4 % (42.0-52.0); HEMOGLOBIN 9.6 g/dl (13.5-18.0); LYMPH % 14.9 % (20.0-51.0); MEAN CELL VOLUME 91 fl (80.0-100.0); MEAN CORPUSCULAR HEMOGLOBIN 29 pg (27.0-31.0); MEAN CORPUSCULAR HGB CONC 32 g/dl (33.0-37.0); MEAN PLATELET VOLUME 9.7 fl (7.4-10.4); MONO # 0.6 (0.1-0.6); MONO % 9.6 % (1.7-9.3); PLATELET COUNT 308 K/mm3 (130-400); RED BLOOD COUNT 3.34 M/mm3 (4.20-5.60); REDCELL DISTRIBUTION WIDTH-CV 17.7 % (11.5-14.5)
--- NOTE | 2019-05-03 07:50 | NUR ---
PATIENT RESTING IN BED DURING SHIFT CHANGE REPORT. PATIENT COOPERATIVE AND ANSWERS QUESTIONS APPROPRIATELY TO DAY SHIFT NURSE.
[2019-05-03 07:53] LABS: CALCIUM 8.2 mg/dL (8.4-10.2); CREATININE, serum 8.26 (0.66-1.25); PHOSPHOROUS 6.8 mg/dL (2.5-4.5); POTASSIUM 4.9 mmol/L (3.4-5.0)
[2019-05-03 08:00] VITALS: BP 140/65; PULSE 86; TEMP 98.2
--- NOTE | 2019-05-03 08:15 | NUR ---
Lying in bed with eyes open. Complains of pain in right hip. 1+ edema noted to right thigh. Stage 1 pressure ulcer on right heel. Heel protectors are in place. Patient rolled to left side to use bedpan. No skin break down noted on back or buttocks. Patient tolerates rolling poorly. No BM, was able to pas flatus. Patient wiped. Will go to dialysis at this time.
[2019-05-03 11:39] VITALS: BP 111/61; PULSE 77; TEMP 97.5
--- NOTE | 2019-05-03 11:58 | NUR ---
Tare Worker notified by RN, Marsha that patient to transfer to [facility] today.
--- NOTE | 2019-05-03 12:00 | NUR ---
Patient brought back to room from dialysis via bed. Rates pain 4/10 in right hip and says that he feels pretty good right now. While at dialysis the patient's son brought him McDonalds to eat. Patient denies wanting to eat at this time. Denies further needs.
--- NOTE | 2019-05-03 15:46 | NUR ---
Lying in bed with eyes open. Rates pain 5/10 in right hip. Denies need for pain medication at this time. Denies anything further.
[2019-05-03 16:25] VITALS: BP 113/55; PULSE 77; TEMP 98.5
--- NOTE | 2019-05-03 17:31 | NUR ---
Patient accepted to [facility] room 5103. Contacted the patient's son, Hung, and received authorization to transfer patient via EMS to [facility], verified by NANCY Chavez. Paperwork completed at this time.
--- NOTE | 2019-05-03 17:38 | NUR ---
Bolivar administered to patient to provide pain relief while being transported to [facility] and also for repositioning from bed to EMS cot.
--- NOTE | 2019-05-03 17:56 | NUR ---
Report called to NANCY Barbour, at [facility].
--- NOTE | 2019-05-03 18:18 | NUR ---
Lying in bed with eyes open. Explain to the patient that the EMS should be arriving to pick him up to take him to [facility]. Patient says that his pain is doing okay at this time, 06/10. Denies needs.
--- NOTE | 2019-05-03 18:30 | NUR ---
Lying in bed with eyes closed. Resp even and unlabored. No signs or symptoms of discomfort noted at this time.
--- NOTE | 2019-05-03 19:56 | NUR ---
EMS arrived to unit and transferred patient. All pt belongings with him.
== END 2019-05-03 19:30 | disposition short-term general hospital (02) | DRG 640 ==
LOC: COL.ER 12:18 → MEDICAL 14:06 → SURG 14:06
PROVIDERS: Emergency Medicine; ADMIT Internal Medicine Nephrology
PROC: 5A1D70Z Performance of Urinary Filtration, Intermittent, Less than 6 Hours Per Day (ICD-10-PCS; principal; 2019-04-30)
PROC: 4A023N7 Measurement of Cardiac Sampling and Pressure, Left Heart, Percutaneous Approach (ICD-10-PCS; 2019-05-02)
PROC: B2111ZZ Fluoroscopy of Multiple Coronary Arteries using Low Osmolar Contrast (ICD-10-PCS; 2019-05-02)
DX: E87.5 Hyperkalemia (principal); N18.6 End stage renal disease; I21.A1 Myocardial infarction type 2; I13.2 Hypertensive heart and chronic kidney disease with heart failure and with stage 5 chronic kidney disease, or end stage renal disease; I50.32 Chronic diastolic (congestive) heart failure; M97.01XA Periprosthetic fracture around internal prosthetic right hip joint, initial encounter; M84.459A Pathological fracture, hip, unspecified, initial encounter for fracture; E44.0 Moderate protein-calorie malnutrition; D63.1 Anemia in chronic kidney disease; G89.29 Other chronic pain; E89.0 Postprocedural hypothyroidism; M10.9 Gout, unspecified; N40.0 Benign prostatic hyperplasia without lower urinary tract symptoms; L89.611 Pressure ulcer of right heel, stage 1; E74.39 Other disorders of intestinal carbohydrate absorption; F17.210 Nicotine dependence, cigarettes, uncomplicated; Z79.82 Long term (current) use of aspirin; Z79.891 Long term (current) use of opiate analgesic; Z99.2 Dependence on renal dialysis; Z91.15 Patient's noncompliance with renal dialysis; Z87.11 Personal history of peptic ulcer disease
CPT/HCPCS: OP; A9500; C1769; C1887; J0610; J1170; J1644; J1815; J2250; J2785; J3010; J7030; P9016; Q9967

== ENCOUNTER 2020-05-22 15:12 | Inpatient (IN) | payer MEDICARE, OTHER ==
[~2020-05-22] VITALS: Ht 180.3 cm; Wt 46.4 kg
[~2020-05-22 15:12] MED LIST changes: +ASPIRIN 81M81 MG/TA2 PO; +DAZIDOX10 MG PO; +LIPITOR 40MG TA40 MG PO; +LOPRESSOR 225 MG/TAB PO; +MASON NATURAL S1 CAP; +VITAMIN D 400400 IU PO
--- NOTE | 2020-05-22 15:30 | NUR ---
Pt arrived via EMS. Left upper arm is severily deformed. Dressing to left fistula. Quarter size scab seen near fistula, small amount of drainage noted. Patient has complaints of pain in his right hip, left arm, right arm and lower back. His skin is very very dry. He is malnourished and has a round stomach. Pt reports he has not had anything to eat today. Right LLE does have pitting edema. Dr Spivey has been notified of patients arrival. Diet order received. Also stated to not start an IV.
--- NOTE | 2020-05-22 16:19 | NUR ---
The patient's nurse reports the patient is in poor medical condition. Body Make Up Artist make APS report # [id number].
[2020-05-22 17:21] VITALS: BP 108/62; PULSE 70; TEMP 98.5
[2020-05-22] MEDS ORDERED: THERAGRAN TAB1 UDTAB PO (18:10)
[2020-05-22] MEDS ORDERED: NORCO 325 MG-51 TAB PO (18:13)
--- NOTE | 2020-05-22 18:41 | NUR ---
Pt's son was here for a brief time, but realized that Paulo would be staying the night and he then left. Pt has tolerated his meal with no complaints.
--- NOTE | 2020-05-22 18:58 | NUR ---
Report given. Pt resting with his eyes closed, even non labored breathing
--- NOTE | 2020-05-22 20:00 | NUR ---
Report received, assumed care for supervisor scouring pads. Assessmnet complete. VS stable. A&Ox3. Denies nausea/shortness of breath. States he is in pain to right shoulder/left upper extremity and back. States he has chronic pain and takes a "pain pill once a day but it dont work." Will call Dr. Spivey to check on pain medications. Plan of care discussed for this shift to include NPO at midnight/turning every two hours. Verbalizes understanding. States he didnt want to stay overnight and doesnt know what is going on or why he has been kept. States he wants to go home with son. Explained this nurse was waiting on orders to be placed and once complete I will come and discuss more of a plan with him. Verbalizes understanding. Call light in reach. will monitor.
--- NOTE | 2020-05-22 20:20 | NUR ---
Dr Spivey notified of patient being admitted and needing admission orders. Patient c/o pain to left arm/shoulder as well as back. New orders received for hydrocodone q4h PRN pain. States will enter admission orders from home.
[2020-05-22 20:50] VITALS: BP 97/55; PULSE 69; TEMP 97.6
[2020-05-22 23:40] VITALS: BP 101/58; PULSE 65; TEMP 97.8
--- NOTE | 2020-05-23 00:15 | NUR ---
Spoke with Dr Spivey for clarification of Rocephin order due to no IV access and restricted extremities. New orders received to DC rocephin and start augmentin 500mg PO QD. Also clarified surgical consult order-changed as well per phone order to Dr. Duran-Dr Spivey states "has been notified."
--- NOTE | 2020-05-23 01:14 | NUR ---
Noco one tab given for pain to back/left upper extremity and right shoulder-rating pain 8/10 on pain scale-described as constant throbbing with sharp intermittent pains.
--- NOTE | 2020-05-23 03:22 | NUR ---
Repositioned to left side with pillow support to back/left upper extremity.
[2020-05-23 04:55] VITALS: BP 100/63; PULSE 59; TEMP 97.7
--- NOTE | 2020-05-23 05:17 | NUR ---
Has remained NPO since midnight. Received Loyall x 2 for left upper extremity/back pain. Repositioned in bed q2h with pillow support. No voids for this shift-minimal input-states he doesnt void often-dialysis patient. Still states he just wants to go home and didnt understand why he had to stay. Instructed Dr. Spivey would be here this AM to round and he could speak with him as to what the plan is. Verbalizes understanding/denies questions. Call light in reach. Will monitor.
--- NOTE | 2020-05-23 06:30 | NUR ---
Pt resting with eyes closed, even non labored breathing
[2020-05-23 07:11] LABS: EOS # 0.1 (0.0-0.7); EOS % 1.6 % (0-4.0); GRAN # 1.3 (1.4-6.5); GRAN % 42.1 % (42.2-75.2); HEMOGLOBIN 10.8 g/dl (13.5-18.0); LYMPH # 1.4 (1.2-3.4); LYMPH % 46.4 % (20.0-51.0); MEAN CELL VOLUME 104 fl (80.0-100.0); MEAN CORPUSCULAR HEMOGLOBIN 32 pg (27.0-31.0); MEAN CORPUSCULAR HGB CONC 31 g/dl (33.0-37.0); MONO # 0.3 (0.1-0.6); MONO % 8.6 % (1.7-9.3); PLATELET COUNT 134 K/mm3 (130-400); RED BLOOD COUNT 3.33 M/mm3 (4.20-5.60); REDCELL DISTRIBUTION WIDTH-CV 14.8 % (11.5-14.5)
[2020-05-23 07:16] LABS: HEMATOCRIT 34.5 % (42.0-52.0)
[2020-05-23 07:22] LABS: ALBUMIN 3.5 gm/dL (3.5-5.0); BILIRUBIN,TOTAL 0.5 mg/dL (0.0-1.0); CALCIUM 8.1 mg/dL (8.4-10.2); CREATININE, serum 4.57 (0.66-1.25); INR 1.2 (0.8-3.0); POTASSIUM 3.4 mmol/L (3.4-5.0); PROTHROMBIN TIME 12.9 SECONDS (9.7-12.8)
[2020-05-23 07:25] LABS: PARTIAL THROMBOPLASTIN TIME 37.5 SECONDS (26.0-37.0)
[2020-05-23 08:38] VITALS: BP 104/69; PULSE 66; TEMP 98.1
[2020-05-23 10:43] VITALS: BP 83/49; PULSE 72; TEMP 97.6
--- NOTE | 2020-05-23 11:05 | NUR ---
Dr Duran has been in to see patient. Discussed needing an ultrasound and informed patient that it would be Monday before any procedure would be done. Pt was not happy about having to stay. Continue to turn patient from his back to his right side. New orders received, will continue to monitor
--- NOTE | 2020-05-23 13:17 | NUR ---
Pt stated that he was not able to eat the potatoes or hamburger that was serviced. Stated that the potatoes were to rubbery and that he could not chew the hamburger. Ordered him to chopped turkey with gravy. He took one bite and stated he didn't want it. He was asked if he liked the flavor and he stated yes, but that he didn't want it.
--- NOTE | 2020-05-23 14:45 | NUR ---
SW reviewed documentation for patient. Previous indicates that an APS report has been made. Please see previous SW note. SW completed intake. Patient states that he lives with his son Ziggy [phone]. Patient states that son assists with most needs around the house. Patient provides that he does not know who his PCP is [facility] Patient provides that he plans to go home as soon as possible or when the physician releases him to go back home. SW will continue to follow.
[2020-05-23 15:42] VITALS: BP 78/55; PULSE 76; TEMP 97.6
[2020-05-23 19:31] VITALS: BP 105/62; PULSE 68; TEMP 97.4
--- NOTE | 2020-05-23 20:00 | NUR ---
Report received, assumed care for shift supervisor melting. Assessment complete. VS stable. A&Ox3-very drowsy. Denies nausea/shortness of breath. Rating pain to left hip/back 3/10-denies need for pain medication. Repositioned in bed with pillow support. Left upper extremity with severe deformity-sling on. Left forearm fistula with dressing intact. Plan of care discussed for this shift to inculde HS meds/pain meds/x rays/repositioning/monitoring fistula site. Verbalizes understanding/denies questions/concerns. Call light in reach. Will monitor.
[2020-05-24] VITALS (10 sets, daily range): BP systolic 60–113; BP diastolic 40–67; PULSE 65–85; TEMP 97.3–98.3
[2020-05-24 07:47] LABS: HEMATOCRIT 37.1 % (42.0-52.0); HEMOGLOBIN 12.3 g/dl (13.5-18.0); MEAN CELL VOLUME 100 fl (80.0-100.0); MEAN CORPUSCULAR HEMOGLOBIN 33 pg (27.0-31.0); MEAN CORPUSCULAR HGB CONC 33 g/dl (33.0-37.0); MEAN PLATELET VOLUME 10.5 fl (7.4-10.4); PLATELET COUNT 114 K/mm3 (130-400); RED BLOOD COUNT 3.71 M/mm3 (4.20-5.60); REDCELL DISTRIBUTION WIDTH-CV 14.7 % (11.5-14.5)
[2020-05-24 08:24] LABS: BAND 1 % (0-10); LYMPHOCYTE 51 % (20.0-51.0); METAMYELOCYTE 1 % (0-0); NEUTROPHILS 39 % (42.0-75.2)
[2020-05-24 08:25] LABS: PLATELET ESTIMATE NORMAL (NORMAL)
--- NOTE | 2020-05-24 09:00 | NUR ---
Assessment completed, alert/oriented, vital signs stable/ hypotensive at baseline but is asymptomatic, denies pain or discomfort at rest, patient has deformed left arm from humerous fx/ ortho consulted/ plans for x-ray to reassess, patient has neuropathy but is able to move arm slightly, good cap refill, fistula to left forearm has scabs/ ulcerations plans for surgery consult for possible IND, unable to obtain labs as patient has BUE restriction and multiple attmempts have been made to draw blood from feet with no luck/ i will notify , patient refused breafkast, denies needs at this time
--- NOTE | 2020-05-24 20:58 | NUR ---
Patient resting in bed with eyes closed upon enter the room. Patient opens eyes with calling his name. Appears very drowsy. Patient alert and oriented to person and place. Patient denies any pain or discomfort at this time. Left forearm fistula site dressing C/D/I. Shift assessment completed. Call light within reach. Patient denies any needs at this time.
--- NOTE | 2020-05-25 00:47 | NUR ---
Called Dr. Spivey at 23:55 pm regarding low BP 66/44. New order received to give IV fluid 100ml/hr for 5 hour total and D/C [place]. 22G IV inserted to right forearm by roundhouse worker. IV fluid running at 100ml/hr to right forearm. NPO started from midnight. Call light within reach. Will continue to monitor.
[2020-05-25 03:36] VITALS: BP 78/53; PULSE 72; TEMP 97.5
[2020-05-25 06:51] LABS: BASO % 0.7 % (0.0-2.0); EOS # 0.1 (0.0-0.7); EOS % 2.1 % (0-4.0); GRAN # 1.5 (1.4-6.5); GRAN % 54.2 % (42.2-75.2); HEMOGLOBIN 10.6 g/dl (13.5-18.0); LYMPH % 35.2 % (20.0-51.0); MEAN CORPUSCULAR HEMOGLOBIN 33 pg (27.0-31.0); MEAN CORPUSCULAR HGB CONC 31 g/dl (33.0-37.0); MEAN PLATELET VOLUME 10.3 fl (7.4-10.4); MONO # 0.2 (0.1-0.6); MONO % 7.4 % (1.7-9.3); PLATELET COUNT 114 K/mm3 (130-400); RED BLOOD COUNT 3.24 M/mm3 (4.20-5.60); REDCELL DISTRIBUTION WIDTH-CV 14.7 % (11.5-14.5)
[2020-05-25 07:00] LABS: ALBUMIN 3.4 gm/dL (3.5-5.0); BILIRUBIN,TOTAL 0.5 mg/dL (0.0-1.0); CALCIUM 7.5 mg/dL (8.4-10.2); CREATININE, serum 5.85 (0.66-1.25); POTASSIUM 3.2 mmol/L (3.4-5.0); TOTAL PROTEIN 6.6 gm/dL (6.4-8.2)
[2020-05-25 07:22] VITALS: BP 105/65; PULSE 68; TEMP 97.6
[2020-05-25 07:38] LABS: MEAN CELL VOLUME 105 fl (80.0-100.0)
--- NOTE | 2020-05-25 09:00 | NUR ---
Assessment completed, alert/oriented, vital signs stable/ hypotensive at baseline, denies pain, patient will be going to dialysis this mroning, he has been NPO for possible surgery to left arm fistula ulceration, heart RRR, lungs CTA/ no resp.difficulty, left arm humeral fx again noted/ orders from ortho to apply brace/ social work will be in contact with supply [employer]
--- NOTE | 2020-05-25 09:45 | NUR ---
transferred patient to dialysis in his bed
--- NOTE | 2020-05-25 13:04 | NUR ---
Patient tolerated HD tx today, removed 100 mL of fluid. Next HD tx planned for Monday05/27/2020 @ 0800.
--- NOTE | 2020-05-25 14:44 | NUR ---
Manager Mall collaborated with Dr. Spivey about discharge planning and Dr. Spivey strongly advised that patient needs placement. Dr. Spivey advised he has talked with [facility] in the past and also felt a referral could be sent to [facility] as both facilities can accept dialysis patients. TAYLOR met with patient who was unclear if he would be willing to go to a facility. Patient eventually states he would be willing to go somewhere but "has some business to take care of at home first". Patient states a delinquency prevention social worker from [employer] met with him earlier today. TAYLOR contacted Mere at [facility] and Inga at [facility] and faxed referrals. TAYLOR also left a message for Jacqueline, MARLENY Manager Mall and will continue to follow.
[2020-05-25 16:24] VITALS: BP 93/60; PULSE 68; TEMP 97.5
--- NOTE | 2020-05-25 20:00 | NUR ---
Assessment complete. Patient is slightly drowsy but is fully oriented; He has a flat affect and appears uninterested. Left forearm fistula has bruit/thrill present; pseudoaneursym beneath fistula is covered with gauze/tape. Left hand to forearm has dependent edema present. Patient's abdomen is distended and firm with hypoactive BS. Will continue to monitor,
[2020-05-25 20:30] VITALS: BP 92/56; PULSE 72; TEMP 97.3
[2020-05-26] VITALS (14 sets, daily range): BP systolic 85–106; BP diastolic 50–64; PULSE 61–75; TEMP 97.3–97.8
[2020-05-26 07:04] LABS: BASO % 1.1 % (0.0-2.0); EOS # 0.1 (0.0-0.7); GRAN # 1.4 (1.4-6.5); GRAN % 53.3 % (42.2-75.2); HEMOGLOBIN 10.2 g/dl (13.5-18.0); LYMPH # 0.9 (1.2-3.4); LYMPH % 33.7 % (20.0-51.0); MEAN CELL VOLUME 104 fl (80.0-100.0); MEAN CORPUSCULAR HEMOGLOBIN 32 pg (27.0-31.0); MEAN CORPUSCULAR HGB CONC 31 g/dl (33.0-37.0); MEAN PLATELET VOLUME 9.9 fl (7.4-10.4); MONO # 0.2 (0.1-0.6); MONO % 8.5 % (1.7-9.3); PLATELET COUNT 114 K/mm3 (130-400); REDCELL DISTRIBUTION WIDTH-CV 14.6 % (11.5-14.5)
[2020-05-26 07:06] LABS: HEMATOCRIT 33.4 % (42.0-52.0)
[2020-05-26 07:19] LABS: ALBUMIN 3.3 gm/dL (3.5-5.0); BILIRUBIN,TOTAL 0.5 mg/dL (0.0-1.0); CALCIUM 7.7 mg/dL (8.4-10.2); CREATININE, serum 3.83 (0.66-1.25); POTASSIUM 3.2 mmol/L (3.4-5.0); TOTAL PROTEIN 6.4 gm/dL (6.4-8.2)
--- NOTE | 2020-05-26 07:30 | NUR ---
Pt resing in bed. Assessment as charted. Left upper arm deformity due to humerus fx. Lt forearm fistula thrill and bruit present. Lt hand edematous. CMS cks WNL. Pt denies c/o pain to Lt hand. Abdoment soft and distended, X4 bowel sounds present, pt reports passing flatus, BM 05/24. INt to Rt forearm. Pt denies no pain at rest.
--- NOTE | 2020-05-26 11:06 | NUR ---
Assessment complete. PAtient laying in bed resting at time of assessment. He awoke easily to verbal stimulation. He is aware of his POC today and understands that he will be going down to surgery. Denies pain at this time, states that he only really feels pain when being moved around. Left are fistula has good thrill and bruit a this time, scabbing noted. Visible dislocation of left upper arm is obvious as well. Will continue to monitor. Call light is in reach.
--- NOTE | 2020-05-26 11:15 | NUR ---
Pt resting, no changes from 729 assessment. No c/o pain at this time. Pt is still remaining NPO status.
--- NOTE | 2020-05-26 12:30 | NUR ---
Patient left floor for surgery at this time. Consent was signed. No pre-op fluids ordered.
--- NOTE | 2020-05-26 14:43 | NUR ---
Patient arrived back to the floor at this time. He is alert and oriented, minor drowsiness but requesting to eat at this time. no complaints of pain or discomfort at this time. Vitals being monitored per protocol. Will continue to monitor closely. Call light is in reach.
--- NOTE | 2020-05-26 17:05 | NUR ---
Professional Advisor met with patient and Dr. Spivey to discuss discharge planning. At first, patient states he has business to handle at home but upon further discussion, patient states he is agreeable to a short term SNF stay. TAYLOR followed up with [facility]. Both declined the referral. TAYLOR faxed referrals to [facility], [facility], and [facility] and will continue to follow.
--- NOTE | 2020-05-26 17:48 | NUR ---
Patient has remained stable since arriving back from surgery. He did report some pain in his left arm after but this was after associated from slip box changer was moving it around attempting to put a brace on. A brace in general is unable to be used due to the severity of the fracture. Blood pressures have remained soft, but stable. Fistula site is wrapped in guaze and is currently CD&I, with no issues. Post op vitals to be finished soon. Patient requested (and insisted) on having pizza but this is restricted due to his dialysis/renal diet, patient was frustrated about this. Alternate options were provided, patient decided on an alternative PB&J on toast. Patient is now continuing to nap. Will continue to monitor. Call light is in reach.
--- NOTE | 2020-05-26 20:35 | NUR ---
Patient laying in bed resting upon enter the room. Shift assessment completed and charted. Patient appears drowsy. Opens eyes upon calling his name. Patient denies any pain or discomfort. Denies SOB or dyspnea. Left forearm fistula site covered with gauze. Dressing C/D/I. Call light within reach. Patient denies any needs at this time.
[2020-05-27 20:00] VITALS: BP 81/49; PULSE 74; TEMP 97.6
--- NOTE | 2020-05-27 23:27 | NUR ---
PT SETTING UP IN BED, ASSESSMENT COMPLETE. DENIES PAIN , SOA OR DIZZY. MILD ADB DISTENTION. BOWEL SOUNDS POSTIVE. HAVING BMS. PT REPOSTIONED WITH SEVERAL PILLOWS. DENIES ANY NEEDS AT THIS TIME.
[2020-05-28 00:37] VITALS: BP 89/51; PULSE 72; TEMP 97.6
[2020-05-28 04:52] VITALS: BP 110/69; PULSE 64; TEMP 97.5
--- NOTE | 2020-05-28 05:02 | NUR ---
PT HAD A UNEVENTFUL NIGHT. TYL GIVEN FOR AVALOS AND RESOLVED W TYLENOL. DOES NOT LIKE TO BE REPOSTIONED OR BOTHERED AT NIGHT. NEEDS MET.
[2020-05-28 08:29] VITALS: BP 84/59; PULSE 81; TEMP 97.8
--- NOTE | 2020-05-28 08:56 | NUR ---
Automatic Oven Operator was contacted by Sammie at [facility] who advised they cannot meet patient's needs. Anabella at [facility] advised they have had patient before but cannot take him at this time because they do not have transportation to [place] for dialysis three times a week. Cy at [facility] declined referral as patient's family owes $60,000 from when patient's was there before she passed. SW faxed a referral to [facility] and updated Dr. Spivey.
--- NOTE | 2020-05-28 10:23 | NUR ---
Assessment completed, alert/oriented, vital signs stable, denies pain, heart RRR/distal pulses are palapble, lugns CTA/ no resp.difficulty noted, patient did eat some breakfast this morning, he reports sore throat from surgery the yesterday, left arm displaced/ fracture/ unable to apply brace as patients arm is so deformed and out of allignment, social work is working on discharge planning/ placement, COVID is pending for discharge plans, he denies other needs at this time
[2020-05-28 12:00] VITALS: BP 86/60; PULSE 83; TEMP 97.6
[2020-05-28 14:22] LABS: CALCIUM 7.2 mg/dL (8.4-10.2); CREATININE, serum 4.66 (0.66-1.25); POTASSIUM 3.1 mmol/L (3.4-5.0)
[2020-05-28 15:25] LABS: ALBUMIN 3.1 gm/dL (3.5-5.0); BILIRUBIN,TOTAL 0.5 mg/dL (0.0-1.0); TOTAL PROTEIN 6.2 gm/dL (6.4-8.2)
[2020-05-28 16:35] LABS: HEMATOCRIT 31.9 % (42.0-52.0); HEMOGLOBIN 10.2 g/dl (13.5-18.0); MEAN CELL VOLUME 102 fl (80.0-100.0); MEAN CORPUSCULAR HEMOGLOBIN 33 pg (27.0-31.0); MEAN CORPUSCULAR HGB CONC 32 g/dl (33.0-37.0); MEAN PLATELET VOLUME 10.4 fl (7.4-10.4); PLATELET COUNT 129 K/mm3 (130-400); RED BLOOD COUNT 3.12 M/mm3 (4.20-5.60); REDCELL DISTRIBUTION WIDTH-CV 14.7 % (11.5-14.5)
[2020-05-28 16:41] VITALS: BP 86/60; PULSE 83; TEMP 97.6
--- NOTE | 2020-05-28 16:43 | NUR ---
The patient to discharge today, 05/28 to [facility] for post acute rehab. The patient and the patient's son Lc were in agreenace. SW faxed discharge orders and Covid results. There are no additional needs.
--- NOTE | 2020-05-28 18:31 | NUR ---
patient transferring to [facility], IV removed from right arm, left arm humeral fx in sling upon discharge, incontinent care provided prior to D/C, attempted to call report but was on hold for 5 minutes and hung up
== END 2020-05-28 19:06 | DRG 314 ==
LOC: MEDICAL 15:12
PROVIDERS: ADMIT Internal Medicine Nephrology
PROC: 0HBEXZZ Excision of Left Lower Arm Skin, External Approach (ICD-10-PCS; principal; 2020-05-22)
DX: T82.510A Breakdown (mechanical) of surgically created arteriovenous fistula, initial encounter (principal); N18.6 End stage renal disease; E43 Unspecified severe protein-calorie malnutrition; I12.0 Hypertensive chronic kidney disease with stage 5 chronic kidney disease or end stage renal disease; Z68.1 Body mass index [BMI] 19.9 or less, adult; E21.2 Other hyperparathyroidism; E03.9 Hypothyroidism, unspecified; M10.9 Gout, unspecified; N40.0 Benign prostatic hyperplasia without lower urinary tract symptoms; S42.332G Displaced oblique fracture of shaft of humerus, left arm, subsequent encounter for fracture with delayed healing; M81.0 Age-related osteoporosis without current pathological fracture; I25.2 Old myocardial infarction; Z99.2 Dependence on renal dialysis; Z20.822 Contact with and (suspected) exposure to COVID-19; Y83.8 Other surgical procedures as the cause of abnormal reaction of the patient, or of later complication, without mention of misadventure at the time of the procedure
CPT/HCPCS: J0690; J2704; J7030; J7040

== ENCOUNTER → 2020-06-12 | Outpatient (CLI) | payer MEDICARE, OTHER ==
[~2020-06-12] MED LIST changes: +ANTACID ULTRA1000 M1 PO; +ANTI-DIARRHEAL2 MG PO; +B-121000 MCG PO; +CALCIUM ANTACI500 MG PO; +CARNITOR100 MG/M1 PO; +CARNITOR330 MG PO; +CATAPRES 0.1MG0.1 MG PO; +CEFAZOLIN1 G1 IV; +COLACE 100100 MG/CAP PO; +DULCOLAX S10 MG/SUPP RC; +FOLIC ACID 11 MG/TA1 PO; +HYDROCORTISON28.4 GM TP; +LIORESAL 1010 MG/TAB PO; +MELATONIN3 M1 PO; +MILK OF MA400 MG/52 PO; +MIRALAX PA17 GM/Dose PO; +MUCINEX DM 30 M1 TE1; +NATURE'S BLEND100 M2 PO; +NORCO 325 MG-101 TAB PO; +PERCOCET 325 MG1 TAB PO; +PROAMATINE10 MG PO; +PROTONIX40 MG/Pack PO; +RENVELA800 MG PO; +THERAGRAN TAB1 UDTAB PO; +ZOFRAN 4MG T4 MG/TAB PO; +ZOLOFT 25MG25 MG PO
[2020-06-12 11:33] LABS: ALBUMIN 3.5 gm/dL (3.5-5.0); BILIRUBIN,TOTAL 0.5 mg/dL (0.0-1.0); CALCIUM 8.5 mg/dL (8.4-10.2); CREATININE, serum 1.16 (0.66-1.25); MAGNESIUM 1.8 mg/dL (1.6-2.3)
== END ==
LOC: ZLAB.STJ 11:02
PROVIDERS: Family Medicine
DX: I10 Essential (primary) hypertension (principal); E89.0 Postprocedural hypothyroidism

== ENCOUNTER 2020-06-15 19:26 | Emergency (ER) | payer MEDICARE, OTHER ==
[~2020-06-15] VITALS: Ht 180.3 cm; Wt 54.5 kg
[~2020-06-15 19:26] MED LIST changes: -ANTACID ULTRA1000 M1 PO; -ANTI-DIARRHEAL2 MG PO; -B-121000 MCG PO; -CALCIUM ANTACI500 MG PO; -CARNITOR100 MG/M1 PO; -CARNITOR330 MG PO; -CATAPRES 0.1MG0.1 MG PO; -CEFAZOLIN1 G1 IV; -COLACE 100100 MG/CAP PO; -DULCOLAX S10 MG/SUPP RC; -FOLIC ACID 11 MG/TA1 PO; -HYDROCORTISON28.4 GM TP; -LIORESAL 1010 MG/TAB PO; -MELATONIN3 M1 PO; -MILK OF MA400 MG/52 PO; -MIRALAX PA17 GM/Dose PO; -MUCINEX DM 30 M1 TE1; -NATURE'S BLEND100 M2 PO; -NORCO 325 MG-101 TAB PO; -PERCOCET 325 MG1 TAB PO; -PROAMATINE10 MG PO; -PROTONIX40 MG/Pack PO; -RENVELA800 MG PO; -ZOFRAN 4MG T4 MG/TAB PO; -ZOLOFT 25MG25 MG PO
[2020-06-15 19:42] VITALS: TEMP 98
[2020-06-15 20:41] LABS: BASO % 0.9 % (0.0-2.0); EOS # 0.1 (0.0-0.7); EOS % 3.7 % (0-4.0); GRAN # 1.8 (1.4-6.5); LYMPH % 29.1 % (20.0-51.0); MEAN CELL VOLUME 102 fl (80.0-100.0); MEAN CORPUSCULAR HEMOGLOBIN 33 pg (27.0-31.0); MEAN CORPUSCULAR HGB CONC 33 g/dl (33.0-37.0); MEAN PLATELET VOLUME 12.3 fl (7.4-10.4); MONO # 0.4 (0.1-0.6); MONO % 11.3 % (1.7-9.3); PLATELET COUNT 369 K/mm3 (130-400); REDCELL DISTRIBUTION WIDTH-CV 17.2 % (11.5-14.5)
[2020-06-15 20:50] LABS: HEMATOCRIT 30.7 % (42.0-52.0)
[2020-06-15 20:55] LABS: ALBUMIN 3.6 gm/dL (3.5-5.0); BILIRUBIN,TOTAL 0.3 mg/dL (0.0-1.0); CALCIUM 9.2 mg/dL (8.4-10.2); CREATININE, serum 2.74 (0.66-1.25); TOTAL PROTEIN 6.9 gm/dL (6.4-8.2)
[2020-06-15 22:54] VITALS: BP 127/76; PULSE 104
== END 2020-06-15 23:00 | disposition home or self-care (01) ==
LOC: COL.ER 19:26
PROVIDERS: Family Medicine
DX: M79.602 Pain in left arm (principal); Z20.822 Contact with and (suspected) exposure to COVID-19; Z99.2 Dependence on renal dialysis; Z79.82 Long term (current) use of aspirin
CPT/HCPCS: J2405; J3010

== ENCOUNTER 2020-06-21 12:01 | Inpatient (IN) | payer MEDICARE, OTHER ==
[~2020-06-21] VITALS: Ht 182.9 cm; Wt 47.1 kg
[2020-06-21] VITALS (145 sets, daily range): BP systolic 168; BP diastolic 116; PULSE 107; TEMP 98.3; O2SAT 84–100
[2020-06-21 12:41] LABS: BASO % 0.8 % (0.0-2.0); EOS # 0.2 (0.0-0.7); EOS % 3.2 % (0-4.0); GRAN # 2.3 (1.4-6.5); GRAN % 46.9 % (42.2-75.2); INR 1.2 (0.8-3.0); LYMPH # 1.8 (1.2-3.4); LYMPH % 36.8 % (20.0-51.0); MEAN CELL VOLUME 108 fl (80.0-100.0); MEAN CORPUSCULAR HGB CONC 30 g/dl (33.0-37.0); MEAN PLATELET VOLUME 9.4 fl (7.4-10.4); MONO # 0.6 (0.1-0.6); MONO % 12.1 % (1.7-9.3); PLATELET COUNT 371 K/mm3 (130-400); PROTHROMBIN TIME 12.9 SECONDS (9.7-12.8); RED BLOOD COUNT 2.25 M/mm3 (4.20-5.60); REDCELL DISTRIBUTION WIDTH-CV 16.4 % (11.5-14.5)
[2020-06-21 12:42] LABS: HEMATOCRIT 24.4 % (42.0-52.0); HEMOGLOBIN 7.3 g/dl (13.5-18.0); MEAN CORPUSCULAR HEMOGLOBIN 32 pg (27.0-31.0)
[2020-06-21 12:59] LABS: TROPONIN-I 0.062 ng/mL (0.000-0.035)
[2020-06-21 13:18] LABS: ALBUMIN 3.3 gm/dL (3.5-5.0); BILIRUBIN,TOTAL 0.4 mg/dL (0.0-1.0); CALCIUM 8.2 mg/dL (8.4-10.2); CREATININE, serum 3.53 (0.66-1.25); POTASSIUM 4.2 mmol/L (3.4-5.0); TOTAL PROTEIN 6.9 gm/dL (6.4-8.2)
[2020-06-21 13:25] LABS: ARTERIAL BLD GAS TCO2 CT 28.8; ARTERIAL BLOOD GAS BASE EXCESS 0.7 (-2-2); ARTERIAL BLOOD GAS HCO3 27.1 meq/L (22-26); ARTERIAL BLOOD GAS PCO2 53.6 mmHg (35-45); ARTERIAL BLOOD GAS PO2 86.5 mmHg (80-100); ARTERIAL BLOOD GAS pH 7.32 (7.35-7.45)
[2020-06-21] MEDS ORDERED: LIORESAL 1010 MG/TAB PO (17:14)
[2020-06-21 19:31] LABS: ARTERIAL BLD GAS O2 SATURATION 98.4 % (92-100); ARTERIAL BLD GAS TCO2 CT 28.8; ARTERIAL BLOOD GAS BASE EXCESS 0.9 (-2-2); ARTERIAL BLOOD GAS HCO3 27.2 meq/L (22-26); ARTERIAL BLOOD GAS PCO2 52.6 mmHg (35-45); ARTERIAL BLOOD GAS PO2 122.7 mmHg (80-100); ARTERIAL BLOOD GAS pH 7.33 (7.35-7.45)
[2020-06-21 20:04] LABS: IRON,SERUM 59 ug/dL (35-150)
[2020-06-21 20:13] LABS: TOTAL IRON BINDING CAPACITY 185 ug/dL (261-462)
--- NOTE | 2020-06-21 21:48 | NUR ---
Patient arrived to unit via stretcher at 1850. Received report from NANCY Jimenez. All questions answered and all medications verified. Patient on 10L Non-rebreather mask. Patient non-responsive to questions but withdraws from pain and opens eyes spontaneously. VS as followed 98.3*F 107hr 13rr 168/116BP 99% SpO2. Will admit patient to ICU and resume care at this time.
[2020-06-21] MEDS ORDERED: ANTI-DIARRHEAL2 MG PO (21:59)
--- NOTE | 2020-06-21 22:02 | NUR ---
Unable to assess for suicide risk screening d/t patients altered mental status and patient being unable to answer questions. Will reassess when able.
--- NOTE | 2020-06-21 23:29 | NUR ---
No belongings on patient when patient arrived to unit.
[2020-06-22] VITALS (772 sets, daily range): BP systolic 110–168; BP diastolic 74–92; PULSE 84–135; TEMP 97.8–98.7; O2SAT 75–100
--- NOTE | 2020-06-22 00:44 | NUR ---
Nurse called [facility] and spoke with Dr. Alicea and notified physician that patient has increased thin secretions and is needing constant suction to help clear secretions and that patient can be heard sounding like he is gurlgling on secretions. Received one time order for a scopolamine patch.
--- NOTE | 2020-06-22 05:01 | NUR ---
200mls of output in suction cannister from oral and nasopharyngeal suctioning.
--- NOTE | 2020-06-22 07:15 | NUR ---
RECEIVED REPORT FROM NANCY SPEARS. VSS. RT AT BEDSIDE PLACING PT ON 4L VIA OM. DR BAUTISTA HERE AND NOTIFIED OF CONSULT, PHYSICIAN REQUESTS ABG, RT NOTIFIED.
[2020-06-22 07:29] LABS: ARTERIAL BLD GAS O2 SATURATION 97.5 % (92-100); ARTERIAL BLOOD GAS BASE EXCESS -2.1 (-2-2); ARTERIAL BLOOD GAS HCO3 23.6 meq/L (22-26); ARTERIAL BLOOD GAS PCO2 44.8 mmHg (35-45); ARTERIAL BLOOD GAS PO2 101.8 mmHg (80-100); ARTERIAL BLOOD GAS pH 7.34 (7.35-7.45)
--- NOTE | 2020-06-22 08:15 | NUR ---
ATTEMPTED TO PERFORM NURSING BEDSIDE SWALLOW. PT SHAKES HEAD AGGRESSIVELY AND YELLS "NO" AND CUSSES AND RN. PT UNABLE TO FOLLOW SIMPLE COMMANDS AT THIS TIME.
--- NOTE | 2020-06-22 08:30 | NUR ---
PT NOTED TO BE 83% AND PULLING OF OM. CONTACTED RT AND REQUESTED AT BEDSIDE TO HELP SUCTION PT. AFTER 20 MINS POX STILL REMAINING 85-88% AFTER OM TURNED UP TO 6L. PLACED ON NRP AT 12L FOR 20 MINS, POX INCREASED TO 97%. NANCY CAREY WITH DIALYSIS STARTED AT 0910. PT PLACED BACK ON 6L VIA OM AND POC MAINTAINS >90%. WILL MONITOR CLOSELY.
[2020-06-22 09:18] LABS: MEAN CELL VOLUME 107 fl (80.0-100.0); MEAN CORPUSCULAR HGB CONC 30 g/dl (33.0-37.0); PLATELET COUNT 364 K/mm3 (130-400); RED BLOOD COUNT 2.53 M/mm3 (4.20-5.60); REDCELL DISTRIBUTION WIDTH-CV 16.1 % (11.5-14.5)
[2020-06-22 09:23] LABS: HEMOGLOBIN 8.2 g/dl (13.5-18.0); MEAN CORPUSCULAR HEMOGLOBIN 32 pg (27.0-31.0)
[2020-06-22 09:28] LABS: ALBUMIN 3.4 gm/dL (3.5-5.0); BILIRUBIN,TOTAL 0.5 mg/dL (0.0-1.0); CALCIUM 8.4 mg/dL (8.4-10.2); CREATININE, serum 3.9 (0.66-1.25); MAGNESIUM 1.9 mg/dL (1.6-2.3); POTASSIUM 4.3 mmol/L (3.4-5.0); TOTAL PROTEIN 7.1 gm/dL (6.4-8.2)
[2020-06-22 09:43] LABS: TROPONIN-I 0.058 ng/mL (0.000-0.035)
--- NOTE | 2020-06-22 09:50 | NUR ---
NNACY LOCO WITH DIALYSIS NOTIFIES RN THAT PT'S HR IS IN THE 140s. NANCY LOCO SPEAKS TO DR KULKARNI ABOUT VS. NEW ORDERS RECEIVED, SEE MAR. HR DOES DECREASE TO 90-100s. ALL OTHER VSS. WILL MONITOR CLOSELY.
[2020-06-22 10:10] LABS: ANISOCYTOSIS 1+; BAND 3 % (0-10); HYPOCHROMIA 3+; LYMPHOCYTE 34 % (20.0-51.0); NEUTROPHILS 52 % (42.0-75.2); NUCLEATED RED BLOOD CELL 1 (0-6)
[2020-06-22 10:11] LABS: PLATELET ESTIMATE NORMAL (NORMAL); SCHISTOCYTES 1+
--- NOTE | 2020-06-22 10:35 | NUR ---
SPOKE TO DR KULKARNI ABOUT PT HARD STICK FO RLAB DRAWS, PHYSICIAN STATES NO PICC OR CENTRAL LINE AT THIS TIME. DISCUSSING POC WITH PHYSICIAN. NEW ORDERS RECEIVED.
--- NOTE | 2020-06-22 10:40 | NUR ---
Initial visit; Community Health Nurse Staff spoke with patient's nurse letting her know of the availability of spiritual care for Paulo. Community Health Nurse Staff will follow up.
[2020-06-22 14:43] LABS: ARTERIAL BLD GAS O2 SATURATION 96.1 % (92-100); ARTERIAL BLD GAS TCO2 CT 25.1; ARTERIAL BLOOD GAS BASE EXCESS -1.4 (-2-2); ARTERIAL BLOOD GAS HCO3 23.8 meq/L (22-26); ARTERIAL BLOOD GAS PCO2 42.2 mmHg (35-45); ARTERIAL BLOOD GAS pH 7.37 (7.35-7.45)
--- NOTE | 2020-06-22 15:19 | NUR ---
Medical Fee Clerk contacted the patient's son Lc regarding discharge plan. The plan is to return to [facility] to continue his post acute rehab. TAYLOR contacted Cheo with [facility]. Cheo reports they will be able to accept the patient back to resume post acute rehab, he sees no reason not to. Cheo reports they have no discharge date as of yet for the patient to transition home. TAYLOR faxed updates to Cheo.
--- NOTE | 2020-06-22 16:08 | NUR ---
Tobias tolerated HD tx today & removed 1L of fluid. Next HD tx planned for tomorrow, Monday06/23/20 @ 0800.
--- NOTE | 2020-06-22 16:51 | NUR ---
NOTIFIED DR KULKARNI OF PT'S HR 130s AND VERY RESTLESS. NEW ORDERS RECEIVED, SEE JUN.
--- NOTE | 2020-06-22 17:33 | NUR ---
DR SMALLS AT BEDSIDE FOR ASSESSMENT.
--- NOTE | 2020-06-22 20:05 | NUR ---
Received report from NANCY Russell. All medications verified and all questions answered. Patient resting in bed. Patient has mitt on right hand to keep patient from pulling at lines and oxygen mask. HR in the 130s and BP ranging from 150-160 SBP and 80-100 diastolic BP. All other VSS. Will resume care at this time.
--- NOTE | 2020-06-22 21:20 | NUR ---
Nurse called [facility] and spoke with Dr. Dowd and stated that patient is having heart rates ranging in the 130-150s and blood pressures ranging with systolic of 150-170s and diastolic of 80s-100s. Patient appearing agitated and continually trying to take of oxymask and pull at monitor chords as well as appearing restless. Patient pushing against staff when staff attempting to pull patient up in bed. Received orders for IV Ativan 2mg Q6hrs PRN.
--- NOTE | 2020-06-22 21:41 | NUR ---
Unable to complete suicide risk assessment d/t patient being unable to responds to questions appropriately d/t altered mental status. Will complete when able.
[2020-06-23] VITALS (732 sets, daily range): BP systolic 91–173; BP diastolic 61–90; PULSE 109–120; TEMP 97.4–98.6; O2SAT 64–100
[2020-06-23 06:12] LABS: MEAN CELL VOLUME 107 fl (80.0-100.0); MEAN CORPUSCULAR HGB CONC 30 g/dl (33.0-37.0); MEAN PLATELET VOLUME 9.2 fl (7.4-10.4); PLATELET COUNT 325 K/mm3 (130-400); RED BLOOD COUNT 2.44 M/mm3 (4.20-5.60)
[2020-06-23 06:17] LABS: HEMOGLOBIN 7.8 g/dl (13.5-18.0); MEAN CORPUSCULAR HEMOGLOBIN 32 pg (27.0-31.0)
[2020-06-23 06:22] LABS: ALBUMIN 3.4 gm/dL (3.5-5.0); CALCIUM 9.6 mg/dL (8.4-10.2); CREATININE, serum 2.64 (0.66-1.25); PHOSPHOROUS 5.1 mg/dL (2.5-4.5); POTASSIUM 4.2 mmol/L (3.4-5.0)
[2020-06-23 06:44] LABS: BAND 34 % (0-10); LYMPHOCYTE 22 % (20.0-51.0); NEUTROPHILS 41 % (42.0-75.2); PLATELET ESTIMATE NORMAL (NORMAL); SCHISTOCYTES 1+; TEAR DROP CELLS 1+
--- NOTE | 2020-06-23 06:45 | NUR ---
Dr. Garcia at patient bedside assessing patient left upper arm fracture. [facility] left humerus fracture brace then to place arm in sling after patient fitted for brace.
--- NOTE | 2020-06-23 07:05 | NUR ---
RECEIVED REPORT FROM NANCY SPEARS. PT RESTING EASILY. OCCASSIONAL RESTLESSNESS NOTED DURING REPORT. VSS. MITT TO RT HAND. PT ON 10L ON AM. BRIEF ON.
--- NOTE | 2020-06-23 07:50 | NUR ---
DR BAUTISTA AT BEDSIDE FOR ASSESSMENT REQUESTING NASAL TRUMPET TO BE REMOVED. PROCEDURE PERFORMED AT THIS TIME BY RN. PT TOLERATED WELL. VSS. NEW ORDERS RECEIVED.
--- NOTE | 2020-06-23 08:15 | NUR ---
POX 100%. O2 DECREASED TO 6L VIA OM.
[2020-06-23 10:33] LABS: PATHOLOGY DIFF REVIEW OK
--- NOTE | 2020-06-23 10:55 | NUR ---
DR KULKARNI AT BEDSIDE FOR ASSESSMENT. DISCUSSED HR EPISODE LAST NIGHT AND ATIVAN, PHYSICIAN STATES TO GO WITH PAIN CONTROL MEDICATIONS. DISCUSSED DR MOURA'S ORDERS TO GET HUMEROOUS BRACE AND THEN PLACE SLING, DR KULKARNI AGREES. DISCUSSED WITH DR KULKARNI ABOUT RN'S CONCERNS WITH PT NOT ABLE TO SIT STILL FOR MRI BRAIN D/T UNABLE TO FOLLOW COMMANDS. MULTIPLE ATTEMPTS MADE TO FEED OR HYDRATE PT BUT PT THRASHES AND SPITS OUT FLUIDS. EVEN WITH ATIVAN OR DILUADID USE PT DOES BECOME SLEEPY BUT HE DOES NOT SIT STILL IN HIS SLEEP AND CONSTANTLY IS MOVING HEAD AND ARMS EVEN IF ASLEEP. DR KULKARNI AWARE AND STATES TO NOT DO MRI BRAIN AT THIS TIME.
--- NOTE | 2020-06-23 11:52 | NUR ---
Solid Plasterer faxed updates to Cheo at [facility].
--- NOTE | 2020-06-23 12:30 | NUR ---
ATTEMPTED TO CALL [facility] PT'S SON. NO ANSWER
--- NOTE | 2020-06-23 13:50 | NUR ---
CONTACTED NURSE EXAMINER ORTHOPEDICS AND PROSTHETICS PER DR MOURA'S REQUEST TO OBTAIN AT LT HUMEROUS FX BRACE. HOWEVER, FACILITY IS AWARE OF THE PT AND TRIED TO FIT HIM ON 05/26/20 AND WAS UNABEL TO R/T UNABLE TO STRAIGHTEN ARM COMPLETELY. FACILITY STATES IF DR MOURA WOULD LIKE TO TALK TO ONE OF THEIR SPECIALISTS TO COME UP WITH A GAME PLAN HE CAN. CONTACTED DR MOURA'S NURSE AND UPDATED HER AND GAVE HER RN'S CALL BACK NUMBER. AWAITING FOR GEORGIBRENTON INSTRUCTIONS ABOUT POC.
--- NOTE | 2020-06-23 15:09 | NUR ---
Patient tolerated HD tx, restless entire tx even after Dilaudid given X1. Removed 3L of fluid. Next HD tx planned for tomorrow, Monday06/24/20.
--- NOTE | 2020-06-23 15:37 | NUR ---
ATTEMPTED TO CALL [facility], PT'S SON. NO ANSWER. RANG TWICE AND THEN GOES STRAIGHT TO VOICEMAIL THAT STATES IT HAS NOT BEEN SET UP.
--- NOTE | 2020-06-23 15:43 | NUR ---
SPOKE TO DR MOURA'S NURSE. DR MOURA SPOKE TO DANIEL AT [facility] AND MADE A PLAN TO GET A BRACE PUT ON TOMORROW. [facility] CALLED AND STATES THEY WILL BE HERE ABOUT 1600 ON 06/24/20 TO GET BRACE ON PT.
--- NOTE | 2020-06-23 20:04 | NUR ---
RECEIVED REPORT FROM NANCY NICHOLS. PATIENT FOUND TO BE CONFUSED WHICH WAS ASSESSED BASELINE PER SIMONE. PT WAS FIDGETING AND NEEDED REPOSITIONED. IV WAS IN PLACE. VSS. BRIEF IN PLACE. MIMI FRACTURE UNSPLINTED PER REPORT. OXYGEN VIA NC ON 4L. WAS ABLE TO CONSOLE PT. CALL LIGHT WITHIN REACH.
[2020-06-24] VITALS (600 sets, daily range): BP systolic 136–170; BP diastolic 76–108; PULSE 53–105; TEMP 97.5–98.3; O2SAT 80–100
[2020-06-24 05:54] LABS: MEAN CELL VOLUME 107 fl (80.0-100.0); MEAN CORPUSCULAR HGB CONC 30 g/dl (33.0-37.0); MEAN PLATELET VOLUME 9.1 fl (7.4-10.4); PLATELET COUNT 334 K/mm3 (130-400); REDCELL DISTRIBUTION WIDTH-CV 15.9 % (11.5-14.5)
[2020-06-24 05:56] LABS: HEMATOCRIT 26.8 % (42.0-52.0); MEAN CORPUSCULAR HEMOGLOBIN 32 pg (27.0-31.0)
[2020-06-24 06:05] LABS: ALBUMIN 3.8 gm/dL (3.5-5.0); CALCIUM 10.7 mg/dL (8.4-10.2); CREATININE, serum 2.13 (0.66-1.25); PHOSPHOROUS 4.4 mg/dL (2.5-4.5); POTASSIUM 3.9 mmol/L (3.4-5.0)
[2020-06-24 06:40] LABS: BAND 15 % (0-10); EOSINOPHIL 1 % (0-4); LYMPHOCYTE 19 % (20.0-51.0); NEUTROPHILS 62 % (42.0-75.2); PLATELET ESTIMATE NORMAL (NORMAL)
--- NOTE | 2020-06-24 10:30 | NUR ---
PATIENT REPOSITIONED FOR COMFORT. PRN DILAUDID GIVEN FOR PAIN. HE YELLS OUT WITH EVERY POSITION CHANGE. WILL CONTINUE TO KEEP COMFORTABLE POSSIBLE.
--- NOTE | 2020-06-24 11:00 | NUR ---
HAVE DISCUSSED NUTRITION WITH BOTH DR. BAUTISTA AND DR. KULKARNI. NO NEW ORDERS HAVE BEEN RECEIVED AT THIS TIME.
--- NOTE | 2020-06-24 15:30 | NUR ---
ADIEL MANAGER CUSTOM CALLED TO PLACE PATIENT ON BIPAP WHILE HE SLEEPS.
--- NOTE | 2020-06-24 16:30 | NUR ---
[facility] HERE TO PLACE SPLINT. DR. KULKARNI CALLED TO LET HIM KNOW THEY ARE HERE. HE HAD REQUESTED TO BE CALLED. HE DISCUSSED CASE WITH [facility]ICHA, [facility] AND [facility]. KULKARNI DECIDES TO CANCEL THE SPLINT PLACEMENT BECAUSE IT WOULD PLACE TOO MUCH PRESSURE ON THE FISTULA IN THE LEFT FOREARM.
--- NOTE | 2020-06-24 20:25 | NUR ---
PATIENT TALKS CONFUSING AT TIME WHEN NOT IN ROOM, HAS MOMENTS DURING ASSESSMENT PATIENT IS ALERT AND FOLLOWS COMMANDS, CAN EASILY BE DISTRACTED, LEFT ALONE PATIENT EITHER SLEEPS OR TALKS LOUDLY
[2020-06-25] VITALS (288 sets, daily range): BP systolic 100–157; BP diastolic 60–94; PULSE 83–105; TEMP 97.4–98.8; O2SAT 92–100
[2020-06-25 05:21] LABS: BASO % 0.2 % (0.0-2.0); EOS # 0.1 (0.0-0.7); EOS % 2.4 % (0-4.0); GRAN # 3.7 (1.4-6.5); LYMPH # 0.7 (1.2-3.4); LYMPH % 14.3 % (20.0-51.0); MEAN CORPUSCULAR HGB CONC 29 g/dl (33.0-37.0); MEAN PLATELET VOLUME 8.9 fl (7.4-10.4); MONO # 0.5 (0.1-0.6); MONO % 9.3 % (1.7-9.3); PLATELET COUNT 316 K/mm3 (130-400); RED BLOOD COUNT 2.28 M/mm3 (4.20-5.60)
[2020-06-25 05:27] LABS: HEMOGLOBIN 7.3 g/dl (13.5-18.0); MEAN CORPUSCULAR HEMOGLOBIN 32 pg (27.0-31.0)
[2020-06-25 05:28] LABS: HEMATOCRIT 25.5 % (42.0-52.0); MEAN CELL VOLUME 112 fl (80.0-100.0)
[2020-06-25 05:38] LABS: ALBUMIN 3.3 gm/dL (3.5-5.0); CALCIUM 9.7 mg/dL (8.4-10.2); CREATININE, serum 2.76 (0.66-1.25); PHOSPHOROUS 4.1 mg/dL (2.5-4.5); POTASSIUM 3.9 mmol/L (3.4-5.0)
[2020-06-25 06:08] LABS: TSH w REFLEX 37.4 uIU/mL (0.465-4.680)
--- NOTE | 2020-06-25 07:00 | NUR ---
RECEIVED REPORT FROM NANCY ORDOÑEZ. PT TALKING BUT DOES NOT MAKE SENSE ALWAYS AND GETS AGGRESSIVE OCCASSIONALLY. VSS. MITT ON RT HAND. PT ON 2L VIA NC. CALL LIGHT NEAR BY WITH TV ON TO HELP WITH DISTRACTION.
--- NOTE | 2020-06-25 10:52 | NUR ---
DR KULKARNI AT BEDSIDE FOR ASSESSMENT.
--- NOTE | 2020-06-25 11:33 | NUR ---
Impregnating Tank Operator staffed with the patient's nurse and Dr. Spivey. The patient has orders to transfer to the floor. PT/OT ordered. TAYLOR faxed updates to Cheo at [facility].
--- NOTE | 2020-06-25 11:37 | NUR ---
Patient tolerated HD tx today, removed 1L of fluid. Next planned HD tx on Monday06/27/20.
--- NOTE | 2020-06-25 11:53 | NUR ---
REPORT FROM GIVEN TO NANCY RUFF ON MEDICAL. PT TO EB TRANSFERRED TO 309. PT FINISHING UP DIALYSIS AND THEN WILL TRANSFER PT ON BED ON 2L VIA NC.
--- NOTE | 2020-06-25 12:18 | NUR ---
NICOLETTE MCCARTHY AT BEDSIDE VISITING. ON THE PHONE WITH DR KULKARNI.
--- NOTE | 2020-06-25 19:22 | NUR ---
PT HAD UNEVENTFUL DAY AFTER ARRIVAL TO MEDICAL FLOOR. HE REMAINS CONFUSED, AND SPEAKING IN A WORD SALAD. HE HAS REFUSED FOOD DESPITE MULTIPLE ATTEMPTS TO FEED HIM. THERE ARE NO OTHER CONCERNS AT THIS TIME.
[2020-06-26 03:07] VITALS: BP 113/60; PULSE 103; TEMP 98.5
[2020-06-26 07:49] VITALS: BP 119/59; PULSE 87; TEMP 97.5
--- NOTE | 2020-06-26 09:19 | NUR ---
Pt assessment complete. Pt has a student nurse caring for him today. Pt is alert able to tell us who he is and where he's at. Does have some confused speech. Denies any pain at this time, does flare up with movement. LUE elevated and positioned on a pillow. Strong pulse and brisk cap refill. Dressing to fistula CDI. Nephrology in to see patient at this time.
--- NOTE | 2020-06-26 10:00 | NUR ---
Initial visit; Patient thanked Sport Psychologist for visiting him and offering spiritual care.
[2020-06-26 11:59] VITALS: BP 141/77; PULSE 102; TEMP 98.3
--- NOTE | 2020-06-26 13:53 | NUR ---
Primary nurse was assisted with [phone] patient care by [facility] [employer] [employer] [employer] student Jake Stratton and [employer] instructor Michelle Cleary MSN, RN.
--- NOTE | 2020-06-26 15:43 | NUR ---
Vocational Guidance Counselor faxed clinical updates to Cheo at [facility].
[2020-06-26 16:00] VITALS: BP 144/56; PULSE 88; TEMP 98
--- NOTE | 2020-06-26 19:30 | NUR ---
Patient sitting up in the recliner. Mitt taken off right hand and telemetry discontinued per doctors orders. Alert and confused, has been yelling out intermittently. Has been refusing to eat and drink. Patient repositioned for comfort as needed. Pain medication give when requested. Call light within reach. Chair alarm on
[2020-06-26 20:29] VITALS: BP 132/53; PULSE 89; TEMP 97.9
[2020-06-27 03:26] VITALS: BP 123/67; PULSE 87; TEMP 98.1
--- NOTE | 2020-06-27 07:39 | NUR ---
Patient taken to dialysis by bed. A&Ox3. IV CDI. Denies pain and reports being comfortable in bed. No further needs expressed from the patient.
[2020-06-27 08:32] LABS: BASO % 0.7 % (0.0-2.0); EOS # 0.1 (0.0-0.7); EOS % 3.4 % (0-4.0); GRAN # 2.7 (1.4-6.5); GRAN % 65.6 % (42.2-75.2); HEMOGLOBIN 7.6 g/dl (13.5-18.0); LYMPH # 0.7 (1.2-3.4); LYMPH % 17.7 % (20.0-51.0); MEAN CELL VOLUME 103 fl (80.0-100.0); MEAN CORPUSCULAR HEMOGLOBIN 31 pg (27.0-31.0); MEAN CORPUSCULAR HGB CONC 30 g/dl (33.0-37.0); MONO # 0.5 (0.1-0.6); MONO % 11.9 % (1.7-9.3); PLATELET COUNT 252 K/mm3 (130-400); RED BLOOD COUNT 2.42 M/mm3 (4.20-5.60); REDCELL DISTRIBUTION WIDTH-CV 15.8 % (11.5-14.5)
[2020-06-27 08:41] LABS: CALCIUM 8.8 mg/dL (8.4-10.2); CREATININE, serum 2.97 (0.66-1.25); POTASSIUM 3.6 mmol/L (3.4-5.0)
[2020-06-27 12:00] VITALS: BP 95/57; PULSE 90; TEMP 97.7
[2020-06-27 16:40] VITALS: BP 102/49; PULSE 85; TEMP 98.6
--- NOTE | 2020-06-27 18:06 | NUR ---
Patient had an uneventful day. Had dialysis in the am and tolerated well. Has been resting in bed the rest of the shift and has not been yelling out. Alert and partially confused, nursing staff reorienting the patient as needed. Denies pain, reports some discomfort while laying in bed. Patient assisted with repositioning as needed. IV CDI. Fistula CDI. Call light within reach. Bed alarm on
[2020-06-27 19:24] VITALS: BP 91/51; PULSE 102; TEMP 98.1
[2020-06-27 23:07] VITALS: BP 113/63; PULSE 87; TEMP 97.7
[2020-06-28 03:19] VITALS: BP 100/64; PULSE 77; TEMP 97.8
--- NOTE | 2020-06-28 04:57 | NUR ---
PATIENT RESTED QUIETLY THROUGHOUT THE NIGHT. PRN PAIN MEDICATION ADMINISTERED X'S 1. PATIENT REPORTS HE IS FEELING CONSTIPATED AND HAVING A LOT OF GAS. WILL PASS THIS INFORMATION ONTO DAY SHIFT. NO OTHER ISSUES NOTED.
[2020-06-28 07:21] VITALS: BP 104/60; PULSE 84; TEMP 97.8
--- NOTE | 2020-06-28 08:04 | NUR ---
Patient was comfortable in bed, his left arm propted on a pillow for stability. Patient stated that he is needing to find his wallet. My supervising nurse informed the patient that his son has been contacted concerning his wallet, but has not yet returned call. Will be waiting for updates.
--- NOTE | 2020-06-28 10:06 | NUR ---
Patient used called light, to get assistance using the bathroom. He stated he felt the need to have a bowel movement. A bed cruz was placed under patient, and repositioned him so that he was comfortable. Patient called again, he did not have a bowel movement at this time. Seemed to be gas that is causing sensation.
--- NOTE | 2020-06-28 10:10 | NUR ---
Agree with students nurses assessment. Patient A&Ox3. VSS. IV CDI. Patient repositioned for comfort. Denies pain and discomfort. Nursing staff encouraging patient to increase PO intake. Patient states that he will try. No further needs expressed from the patient. Call light within reach
[2020-06-28 12:45] VITALS: BP 116/63; PULSE 84; TEMP 98.4
--- NOTE | 2020-06-28 13:58 | NUR ---
Went to check on patient and to reposition him in bed. He stated that he was experiencing pain in his right arm and lower shoulder. He said that light a massage relieves the pain, when the area is not massage the pain comes again.
--- NOTE | 2020-06-28 14:15 | NUR ---
Patient ordered his lunch, when it was brought to him he did not want to eat. He was offered to order something else, he stated that he did not want anything at this moment but would order something a little later.
--- NOTE | 2020-06-28 14:29 | NUR ---
[facility] charting reviewed by this instructor, agree with assessment and charting.
[2020-06-28 15:40] VITALS: BP 105/52; PULSE 88; TEMP 98.2
--- NOTE | 2020-06-28 17:12 | NUR ---
Patient had an uneventful day. A&Ox3. Repositioned as needed for comfort. VSS. IV CDI. Dr Spivey encouraged the patient to incease PO intake. Pain medication given when requested. Patient is still trying to have a BM, but is only passing gas. No further needs expressed from the patient. Call light within reach. Bed alarm on
--- NOTE | 2020-06-28 19:00 | NUR ---
Received report from Mary. Seen patient awake in bed. No other needs at this time. Call light within reach.
[2020-06-28 19:04] VITALS: BP 126/61; PULSE 78; TEMP 97.8
--- NOTE | 2020-06-28 20:15 | NUR ---
Assesment done. Patient denies pain. He is asking for vanilla ice cream. Repositioned patient. INT on right AC flushes well. Placed pillow under his left arm. Assisted patient in scooping some ice cream for easier intake.
[2020-06-28 22:30] VITALS: BP 124/63; PULSE 74; TEMP 97.6
[2020-06-29 03:47] VITALS: BP 126/68; PULSE 82; TEMP 97.5
--- NOTE | 2020-06-29 06:08 | NUR ---
Patient had uneventful night. He was asking what time is he going to be discharged. Repositioned patient as needed. No bowel movement noted. He denies pain all through night.
[2020-06-29 07:10] VITALS: BP 129/68; PULSE 89; TEMP 97.7
--- NOTE | 2020-06-29 07:23 | NUR ---
Patient was alert and oriented this morning. He was just receiving his breakfast when report was given. After patients food was set up, he was able to feed himself. The patient is still asking about his bag and wallet. He was informed that his son was contacted but no reply has been made yet. Patient stated that his son was the worst person to have his wallet, because all of his information and cards are in there.
--- NOTE | 2020-06-29 08:06 | NUR ---
Patient used his call light to get assisstance in repositioning, he also wanted some ice for his Ensure. Patient asked what time he would be going to Dialysis today, will try information for him.
[2020-06-29 09:32] LABS: MEAN CELL VOLUME 104 fl (80.0-100.0); MEAN CORPUSCULAR HGB CONC 31 g/dl (33.0-37.0); MEAN PLATELET VOLUME 9.5 fl (7.4-10.4); PLATELET COUNT 235 K/mm3 (130-400); RED BLOOD COUNT 2.55 M/mm3 (4.20-5.60); REDCELL DISTRIBUTION WIDTH-CV 16.3 % (11.5-14.5)
[2020-06-29 09:34] LABS: HEMATOCRIT 26.4 % (42.0-52.0); HEMOGLOBIN 8.1 g/dl (13.5-18.0); MEAN CORPUSCULAR HEMOGLOBIN 32 pg (27.0-31.0)
[2020-06-29 09:43] LABS: ALBUMIN 3.3 gm/dL (3.5-5.0); CALCIUM 8.4 mg/dL (8.4-10.2); CREATININE, serum 2.95 (0.66-1.25); PHOSPHOROUS 2.8 mg/dL (2.5-4.5); POTASSIUM 3.6 mmol/L (3.4-5.0)
[2020-06-29 09:56] LABS: ANISOCYTOSIS 1+; BASOPHIL 1 % (0-2); EOSINOPHIL 7 % (0-4); HYPOCHROMIA 4+; LYMPHOCYTE 23 % (20.0-51.0); METAMYELOCYTE 1 % (0-0); MYELOCYTE 2 % (0-0); NEUTROPHILS 55 % (42.0-75.2); NUCLEATED RED BLOOD CELL 1 (0-6); PLATELET ESTIMATE NORMAL (NORMAL)
[2020-06-29 11:52] VITALS: BP 113/53; PULSE 84; TEMP 98
--- NOTE | 2020-06-29 12:38 | NUR ---
Patient tolerated HD tx without any issues, removed 200 mL of fluid.
--- NOTE | 2020-06-29 13:19 | NUR ---
Vulcan Crewmember faxed negative COVID results to Cheo at [facility].
--- NOTE | 2020-06-29 13:40 | NUR ---
The patient is to tentatively discharge today, 06/29 to [facility] for post acute rehab. The patient is to be transported at 1500. SW contacted the patient's son, Lc and he was in agreeance. The team was in agreeance. SW faxed discharge orders. There are no additional needs.
--- NOTE | 2020-06-29 14:20 | NUR ---
WUSN assessment and charting reviewed by this instructor, agree with documentation.
--- NOTE | 2020-06-29 15:33 | NUR ---
PT IS AWAITING TRANSPORTATION FOR [facility]. NO CONCERNS.
[2020-06-29 15:43] VITALS: BP 113/53; PULSE 84; TEMP 98
== END 2020-06-29 16:30 | DRG 193 ==
LOC: COL.ER 12:01 → MEDICAL 14:48 → ICU 14:48 → MEDICAL 06-25 12:47
PROVIDERS: Emergency Medicine; Internal Medicine Pulmonary Disease; Nurse Practitioner; ADMIT Internal Medicine Nephrology
PROC: 5A1D70Z Performance of Urinary Filtration, Intermittent, Less than 6 Hours Per Day (ICD-10-PCS; principal; 2020-06-29)
DX: J18.9 Pneumonia, unspecified organism (principal); G93.41 Metabolic encephalopathy; E43 Unspecified severe protein-calorie malnutrition; N18.6 End stage renal disease; J96.01 Acute respiratory failure with hypoxia; E87.0 Hyperosmolality and hypernatremia; Z99.2 Dependence on renal dialysis; E21.2 Other hyperparathyroidism; E03.9 Hypothyroidism, unspecified; Z66 Do not resuscitate; I10 Essential (primary) hypertension; D63.1 Anemia in chronic kidney disease; R77.8 Other specified abnormalities of plasma proteins; I27.20 Pulmonary hypertension, unspecified; M10.9 Gout, unspecified; M81.0 Age-related osteoporosis without current pathological fracture; I25.2 Old myocardial infarction; N40.0 Benign prostatic hyperplasia without lower urinary tract symptoms; S42.302G Unspecified fracture of shaft of humerus, left arm, subsequent encounter for fracture with delayed healing; Z79.82 Long term (current) use of aspirin; Z87.891 Personal history of nicotine dependence
CPT/HCPCS: J0692; J1170; J1644; J2060; J2310; J3370; J7030; J7050; Q5105

== ENCOUNTER 2020-07-03 07:16 | Emergency (ER) | payer MEDICARE, OTHER ==
[~2020-07-03] VITALS: Ht 170.2 cm; Wt 54.5 kg
[~2020-07-03 07:16] MED LIST changes: +ANTI-DIARRHEAL2 MG PO; +LIORESAL 1010 MG/TAB PO
[2020-07-03 09:09] VITALS: BP 97/63; PULSE 106
== END 2020-07-03 09:09 | disposition home or self-care (01) ==
LOC: COL.ER 07:16
DX: M54.5 Low back pain (principal); I12.0 Hypertensive chronic kidney disease with stage 5 chronic kidney disease or end stage renal disease; N18.6 End stage renal disease; Z99.2 Dependence on renal dialysis; Z79.82 Long term (current) use of aspirin

== ENCOUNTER 2020-07-15 12:19 | Inpatient (IN) | payer MEDICARE, OTHER ==
[~2020-07-15] VITALS: Ht 170.2 cm; Wt 47.5 kg
[2020-07-15 16:17] VITALS: BP 171/83; PULSE 105; TEMP 98.7
[2020-07-15 17:13] LABS: ALBUMIN 3.5 gm/dL (3.5-5.0); BILIRUBIN,TOTAL 0.2 mg/dL (0.0-1.0); CALCIUM 10.1 mg/dL (8.4-10.2); CREATININE, serum 2.24 (0.66-1.25); POTASSIUM 4.6 mmol/L (3.4-5.0); TOTAL PROTEIN 7.3 gm/dL (6.4-8.2)
[2020-07-15 17:22] LABS: INR 1.2 (0.8-3.0); PROTHROMBIN TIME 13.3 SECONDS (9.7-12.8)
--- NOTE | 2020-07-15 19:40 | NUR ---
At shift change, patient yelling out in pain. Day shift RN called MD, and received orders for pain medication. Also received orders for blood to be given. Patient assessed at this time. Given PRN Dilaudid for level 10 pain "all over." INT to right AC is without redness, warmth, swelling, and pain. AV fistula to left forearm with positive bruit and thrill. Sling to left arm due to fracture, but patient keeps taking arm out of sling. Denies having SOB and dyspnea. LS CTA. Respirations even and unlabored. Heart rate tachycardic. Regular rhythm. Capillary refill less than 3 seconds. Non-tenting skin turgor. BSAx4. Abdomen soft and non-tender. No edema. Patient not understanding that he was here for a fractured hip. Reminded patient, and voiced understanding. Voices no further questions, needs, or concerns at this time. Resting in bed with call light within reach.
[2020-07-15] MEDS ORDERED: NORCO 325 MG-101 TAB PO (19:45)
[2020-07-15] MEDS ORDERED: ANTI-DIARRHEAL2 MG PO (19:45)
[2020-07-15] MEDS ORDERED: COLACE 100100 MG/CAP PO (19:46)
[2020-07-15] MEDS ORDERED: MILK OF MA400 MG/52 PO (19:48)
[2020-07-15 20:14] VITALS: BP 151/72; PULSE 85; TEMP 97.4
[2020-07-15 21:51] VITALS: BP 145/87; PULSE 110
[2020-07-15 22:06] VITALS: BP 150/75; PULSE 109
--- NOTE | 2020-07-15 22:34 | NUR ---
Patient's blood transfusion started at 2150. Consent signed by patient prior to administration. Co-signed with another RN. Patient has 22 to right AC. Order to run slow but use that IV site. Will receive one unit tonight, and one with HD tomorrow. Tolerating blood transfusion well so far. This nurse stayed with patient first 15 minutes of transfusion. Voices no questions, needs, or concerns at this time. Patient reports pain is doing much better.
[2020-07-15 22:36] VITALS: BP 135/73; PULSE 105
[2020-07-15 23:36] VITALS: BP 133/77; PULSE 100
[2020-07-16] VITALS (11 sets, daily range): BP systolic 149–186; BP diastolic 65–91; PULSE 11–111; TEMP 97.7–99.6
--- NOTE | 2020-07-16 01:27 | NUR ---
First unit of blood completed at 0115. Tolerated well. Complaining of pain at this time. Given PRN Dilaudid as requested. Voices no further questions, needs, or concerns at this time. Second unit of blood will be given at dialysis per orders.
--- NOTE | 2020-07-16 05:33 | NUR ---
Patient received PRN Dilaudid for pain as requested throughout the night for pain all over. Patient has yelling out "momma" on and off during the night. Patient voices no questions, needs, or concerns at this time. Resting in bed with call light within reach.
--- NOTE | 2020-07-16 07:20 | NUR ---
ORTHO PA AT BEDSIDE, SEE ORDERS
--- NOTE | 2020-07-16 08:00 | NUR ---
PATIENT IS ORIENTED TO PERSON BUT DISPLAYS CONFUSION. PATIENT THINKS HE IS AT [facility] AND IS UNSURE IF ITS DAY OR NIGHT. NOTED OCCATIONAL CONFUSION/FORGETFULNESS. VSS WITH MILD TACHYCARDIA OF 101-108. C/O PAIN IN LEFT HIP AND REQUESTION SOMETHING FOR PAIN. GAVE PRN IV DILAUDID. LLE KNEE IS DRAWN UP AND FLEXED INWARD WITH PILLOW UNDER AND BETWEEN BLE. SCD'S TO BLE. POSITIVE PEDAL PULSES TO BLE. PATIENT ON BEDREST AND SURGERY FOR LEFT HIP FX PENDING MONDAY. ALSO NOTED DIFORMED LUE FROM PREVIOUS HUMEROUS FX THAT WAS NON-OPERABLE AND HEALED AT A 90 DEGREE ANGLE. SLING TO LUE INPLACE. AM MEDS GIVEN. BREAKFAST AT BEDSIDE. PATIENT TOLERATING RENAL DIET. PATIENT WILL HAVE DIALYSIS TODAY. ANURIC. RIGHT AC IV TO INT. LEFT FISTULA WITH GOOD BRUIT & THIRLL. HEAD TO TOE ASSESSMENT COMPLETE. CALL LIGHT IN REACH. BED ALARM AND FALL PRECAUTIONS INPLACE.
--- NOTE | 2020-07-16 08:45 | NUR ---
PATIENT NOW IN DIALYSIS. UNIT OF BLOOD CHECKED WITH DIALYSIS NURSE AND INFUSING DURING DIALYSIS TREATMENT.
[2020-07-16 08:48] LABS: BASO % 0.9 % (0.0-2.0); EOS # 0.1 (0.0-0.7); EOS % 2.9 % (0-4.0); GRAN # 2.8 (1.4-6.5); GRAN % 63.5 % (42.2-75.2); LYMPH # 0.8 (1.2-3.4); MEAN CELL VOLUME 106 fl (80.0-100.0); MEAN CORPUSCULAR HGB CONC 31 g/dl (33.0-37.0); MEAN PLATELET VOLUME 9.4 fl (7.4-10.4); MONO # 0.6 (0.1-0.6); MONO % 14.2 % (1.7-9.3); PLATELET COUNT 276 K/mm3 (130-400); RED BLOOD COUNT 2.21 M/mm3 (4.20-5.60); REDCELL DISTRIBUTION WIDTH-CV 17.6 % (11.5-14.5)
[2020-07-16 09:01] LABS: ALBUMIN 3.4 gm/dL (3.5-5.0); CALCIUM 9.3 mg/dL (8.4-10.2); CREATININE, serum 2.69 (0.66-1.25); HEMATOCRIT 23.5 % (42.0-52.0); HEMOGLOBIN 7.2 g/dl (13.5-18.0); MEAN CORPUSCULAR HEMOGLOBIN 33 pg (27.0-31.0)
[2020-07-16 09:14] LABS: POTASSIUM 5.1 mmol/L (3.4-5.0)
--- NOTE | 2020-07-16 10:10 | NUR ---
PATIENT HAVING PAIN DURING DIALYSIS IN LEFT HIP. GAVE PRN IV DILAUDID AND APPLIED A FRESH ICE PACK TO LEFT HIP.
--- NOTE | 2020-07-16 13:00 | NUR ---
PATIENT BACK IN ROOM FROM DIALYSIS AND WANTING TO REST. CALL LIGHT IN REACH. ROOM LIGHT TURNED DOWN.
--- NOTE | 2020-07-16 15:01 | NUR ---
Engagement Manager contacted Cheo at [place] [facility] as patient has been there for a skilled stay. TAYLOR faxed clinical updates. SW attempted to contact patient's son, Lc but was unable to leave a message. TAYLOR met with patient to discuss discharge planning. Patient has a home in [place], [place] and his son, Lc has been living with him. Patient has been at [facility] for a skilled stay. Per Cheo, patient has been approved [facility] termite control [facility]. Patient states he plans to return to [facility] upon discharge for rehab. TAYLOR contacted APS Jacqueline VAZQUEZ who advised patient's case was closed when he admitted to [facility]. Patient to have surgery tomorrow.
--- NOTE | 2020-07-16 20:15 | NUR ---
Patient assessed at this time. Alert with intermittent confusion. Complaining of pain and given PRN Dilaudid as requested. Peripheral INT to right forearm without redness, warmth, swelling, and pain. Denies SOB and dyspnea. LS CTA. Respirations even and unlabored. HRR. Capillary refill less than 3 seconds. Non-tenting skin turgor. BSAx4. Abdomen soft and non-tender. No edema. AV fistula to left arm with positive bruit and thrill. Sling to left arm due to fracture. Voices no questions, needs, or concerns at this time. Resting in bed with call light within reach.
[2020-07-17] VITALS (12 sets, daily range): BP systolic 94–173; BP diastolic 56–88; PULSE 95–121; TEMP 97.6–99.2
--- NOTE | 2020-07-17 02:36 | NUR ---
Patient complaining of pain to left hip/all over. Given PRN Dilaudid as requested for pain. Reminded of surgical time and that he is NPO. Voiced understanding.
--- NOTE | 2020-07-17 06:10 | NUR ---
Patient received PRN Dilaudid for pain during the night as requested. Repositioned slightly in bed for comfort as well. Declined ice to hip. Patient has been NPO since midnight for surgical procedure for today. Voices no questions, needs, or concerns at this time. Resting in bed with call light within reach.
[2020-07-17 07:12] LABS: BASO % 0.8 % (0.0-2.0); EOS # 0.1 (0.0-0.7); EOS % 1.6 % (0-4.0); GRAN % 60.2 % (42.2-75.2); LYMPH # 0.9 (1.2-3.4); LYMPH % 18.6 % (20.0-51.0); MEAN CELL VOLUME 106 fl (80.0-100.0); MEAN CORPUSCULAR HGB CONC 31 g/dl (33.0-37.0); MEAN PLATELET VOLUME 9.6 fl (7.4-10.4); MONO # 0.9 (0.1-0.6); MONO % 18.4 % (1.7-9.3); PLATELET COUNT 260 K/mm3 (130-400); RED BLOOD COUNT 2.56 M/mm3 (4.20-5.60); REDCELL DISTRIBUTION WIDTH-CV 18.7 % (11.5-14.5)
[2020-07-17 07:15] LABS: HEMATOCRIT 27.1 % (42.0-52.0); HEMOGLOBIN 8.3 g/dl (13.5-18.0); MEAN CORPUSCULAR HEMOGLOBIN 32 pg (27.0-31.0)
[2020-07-17 07:33] LABS: ALBUMIN 3.3 gm/dL (3.5-5.0); CREATININE, serum 2.13 (0.66-1.25); PHOSPHOROUS 4.5 mg/dL (2.5-4.5); POTASSIUM 4.5 mmol/L (3.4-5.0)
--- NOTE | 2020-07-17 08:00 | NUR ---
PATIENT IS ORIENTED TO PERSON BUT DISPLAYS CONFUSION. DROWSY THIS AM. PATIENT STILL THINKS HE IS AT [facility] FREQUENTLY. VSS WITH MILD TACHYCARDIA OF 108. NO C/O PAIN IN LEFT HIP AT THIS TIME, PATIENT IS DROWSY BUT AROUSES TO VERBAL STIMULI. LLE KNEE IS DRAWN UP AND FLEXED INWARD WITH PILLOW UNDER AND BETWEEN BLE. SCD'S TO BLE. POSITIVE PEDAL PULSES TO BLE. PATIENT ON BEDREST, NPO FOR SURGERY TODAY. CONSENT ON CHART. ALSO NOTED DIFORMED LUE FROM PREVIOUS HUMEROUS FX THAT WAS NON-OPERABLE AND HEALED AT A 90 DEGREE ANGLE. SLING TO LUE INPLACE. AM MEDS GIVEN. PATIENT HAD DIALYSIS WITH A UNIT OF BLOOD YESTERDAY. ANURIC. RIGHT AC IV TO INT. LEFT FISTULA WITH GOOD BRUIT & THIRLL. HEAD TO TOE ASSESSMENT COMPLETE. CALL LIGHT IN REACH. BED ALARM AND FALL PRECAUTIONS INPLACE.
[2020-07-17 09:00] LABS: CALCIUM 9.1 mg/dL (8.4-10.2); CREATININE, serum 2.13 (0.66-1.25); POTASSIUM 4.5 mmol/L (3.4-5.0)
--- NOTE | 2020-07-17 09:30 | NUR ---
Initial visit; Patient said he isn't doing too good and would like Rec Therapist to keep him in her prayers. Rec Therapist offered God's blessings.
--- NOTE | 2020-07-17 12:12 | NUR ---
PATIENT GOING DOWN STAIRS TO OR. CONSENT ON CHART. IV FLUIDS INFUSING VERY SLOW VIA GRAVITY. PATIENT OFF FLOOR.
--- NOTE | 2020-07-17 14:38 | NUR ---
Equipment Manager faxed clinical updates to [place] [facility].
--- NOTE | 2020-07-17 16:00 | NUR ---
PATIENT BACK IN ROOM 324 POST OP. PATIENT IS VERY DROWSY AND OPENS EYES & GROWNS WHEN VERBALLY OR PHYSICALLY STIMUATED. VSS WITH 02 @ 2L PER NC. PATIENT IS A MOUTH BREATHER AND IS SNORING LOUDLY. PACU REPORTED SOME APNEA. APPLIED OXYMASK AT 2L WITH SATS IN UPPER 90'S TO 100'S. NO C/O PAIN. LEFT HIP INCISIONS X3 ARE CD&I WITH GAUZE & TEGADERM. TEDS CURRENTLY OFF. PATIENT HAD VERY DRY SKIN, FULL BODY, THAT FLAKES OFF CONSTANTLY WHICH IS CHRONIC. PACU REPORTED A BS OF 57 AND WAS TREATED WITH D50, BS NOW 95. HEAD TO TOE ASSESSMENT COMPLETE. PATIENT RESTING IN BED WITH CALL LIGHT IN REACH.
--- NOTE | 2020-07-17 19:30 | NUR ---
Patient requests food. Offered a sandwich box, patient refused stating he does not want turkey. Patient given applesauce and jello. Trying to get chicken soup.
--- NOTE | 2020-07-17 20:00 | NUR ---
Patient given soup. PAtient refuses it stating "it does not taste like soup". Patient informed that his only options tonight are the sanwich or soup.
[2020-07-18] VITALS (13 sets, daily range): BP systolic 85–136; BP diastolic 50–71; PULSE 87–103; TEMP 97.6–99.6
--- NOTE | 2020-07-18 03:30 | NUR ---
PAtient refusing to wear sling on his left arm.
--- NOTE | 2020-07-18 04:29 | NUR ---
Patient had a bowel movement on a bed cruz. Some swelling in patient's left knee noted.
--- NOTE | 2020-07-18 06:35 | NUR ---
PAtient agreed to put his sling back on.
[2020-07-18 06:40] LABS: CALCIUM 7.6 mg/dL (8.4-10.2); CREATININE, serum 2.93 (0.66-1.25); PHOSPHOROUS 5.2 mg/dL (2.5-4.5); POTASSIUM 5.1 mmol/L (3.4-5.0)
[2020-07-18 06:49] LABS: BASO % 0.2 % (0.0-2.0); GRAN # 2.7 (1.4-6.5); GRAN % 65.1 % (42.2-75.2); LYMPH # 0.6 (1.2-3.4); LYMPH % 15.3 % (20.0-51.0); MEAN CELL VOLUME 105 fl (80.0-100.0); MEAN CORPUSCULAR HGB CONC 30 g/dl (33.0-37.0); MEAN PLATELET VOLUME 9.6 fl (7.4-10.4); MONO # 0.8 (0.1-0.6); MONO % 18.9 % (1.7-9.3); PLATELET COUNT 228 K/mm3 (130-400); RED BLOOD COUNT 1.82 M/mm3 (4.20-5.60); REDCELL DISTRIBUTION WIDTH-CV 17.8 % (11.5-14.5)
[2020-07-18 07:36] LABS: HEMATOCRIT 19.1 % (42.0-52.0); HEMOGLOBIN 5.8 g/dl (13.5-18.0); MEAN CORPUSCULAR HEMOGLOBIN 32 pg (27.0-31.0)
--- NOTE | 2020-07-18 08:02 | NUR ---
NOTIFIED OF PT'S HGB, NEW ORDERS RECIEVED.
--- NOTE | 2020-07-18 08:38 | NUR ---
PT RESTING IN BED. DIALYSIS PLANNED FOR LATER TODAY. BLOOD ORDERED PER . PT REFUSING BREAKFAST TRAY ORDERED PBNJ INSTEAD. PT DENIES PAIN, NAUSEA OR VOMITING.
--- NOTE | 2020-07-18 09:18 | NUR ---
CALLED BLOOD BANK TO CHECK ON ORDER NO ANSWER AFTER WAITING 5 MIN OF RINGING.
--- NOTE | 2020-07-18 14:10 | NUR ---
PT REFUSED TO USE INSENTIVE SPIROMETER AT THIS TIME. IS SET OUTSIDE ROOM AT THIS TIME.
[2020-07-18 15:21] LABS: HEMATOCRIT 24.3 % (42.0-52.0); HEMOGLOBIN 7.8 g/dl (13.5-18.0)
--- NOTE | 2020-07-18 16:24 | NUR ---
PT RECIEVED DIALYSIS AND TRANSFUSED TWO UNITS DURING DIALYSIS TX. PT TOLERATED WELL RESTING IN ROOM AT THIS TIME.
--- NOTE | 2020-07-18 18:40 | NUR ---
PT REFUSING FOOD THIS PM. PT WANTS TO EAT PEPPERONI PIZZA BUT THIS IS NOT AVAILABLE FOR HIS DIET ORDER. PT REFUSING OTHER ALTERNATIVES.
--- NOTE | 2020-07-18 21:00 | NUR ---
Patient complaining of 8/10 pain in his left hip. [place] administered. PAtient's leg repositioned and a pillow placed between legs to keep his leg from turing inward. Patient offered a snack, but refused. Dressing on hip clean, dry, and intact. Left knee is still swollen and tender. Sling on left arm. No other needs at this time. Call light in reach.
[2020-07-19] VITALS (10 sets, daily range): BP systolic 104–154; BP diastolic 43–76; PULSE 89–102; TEMP 97.5–98.9
--- NOTE | 2020-07-19 06:56 | NUR ---
REPORT FROM COLLIN CRUZ. BREAKFAST ORDERED. REPOSITIONED PT FOR COMFORT. PO PAIN MEDS GIVEN. PT DENIES FURTHER NEEDS.
[2020-07-19 07:14] LABS: BASO % 0.5 % (0.0-2.0); EOS # 0.1 (0.0-0.7); EOS % 1.4 % (0-4.0); GRAN # 2.7 (1.4-6.5); GRAN % 64.7 % (42.2-75.2); LYMPH # 0.7 (1.2-3.4); LYMPH % 16.6 % (20.0-51.0); MEAN CORPUSCULAR HGB CONC 32 g/dl (33.0-37.0); MEAN PLATELET VOLUME 9.6 fl (7.4-10.4); MONO # 0.7 (0.1-0.6); MONO % 16.6 % (1.7-9.3); PLATELET COUNT 229 K/mm3 (130-400); RED BLOOD COUNT 2.47 M/mm3 (4.20-5.60); REDCELL DISTRIBUTION WIDTH-CV 18.1 % (11.5-14.5)
[2020-07-19 07:27] LABS: ALBUMIN 3.1 gm/dL (3.5-5.0); CALCIUM 8.2 mg/dL (8.4-10.2); CREATININE, serum 2.01 (0.66-1.25); PHOSPHOROUS 3.7 mg/dL (2.5-4.5); POTASSIUM 4.1 mmol/L (3.4-5.0)
[2020-07-19 07:30] LABS: HEMATOCRIT 24.6 % (42.0-52.0); HEMOGLOBIN 7.8 g/dl (13.5-18.0); MEAN CELL VOLUME 100 fl (80.0-100.0); MEAN CORPUSCULAR HEMOGLOBIN 32 pg (27.0-31.0)
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
--- NOTE | 2020-07-19 20:56 | NUR ---
Blood transfusion started at 2044 per protocol. Maria R RN verified blood. Infusing at 60 ml/hr. PAtient tolerating well. Remaining in room for first 15 minutes.
[2020-07-20 00:39] VITALS: BP 127/72; PULSE 92
--- NOTE | 2020-07-20 00:39 | NUR ---
BLood transfusion completed. VSS throughout transfusion. Patient tolerated well. Given a warm blanket. No other needs at this time.
[2020-07-20 03:45] VITALS: BP 155/67; PULSE 88; TEMP 98.4
--- NOTE | 2020-07-20 07:15 | NUR ---
PATIENT TAKEN TO DIALYSIS
[2020-07-20 07:48] LABS: BASO % 0.7 % (0.0-2.0); EOS # 0.3 (0.0-0.7); EOS % 7.3 % (0-4.0); GRAN # 2.7 (1.4-6.5); GRAN % 59.9 % (42.2-75.2); LYMPH # 0.8 (1.2-3.4); LYMPH % 18.3 % (20.0-51.0); MEAN CELL VOLUME 98 fl (80.0-100.0); MEAN CORPUSCULAR HGB CONC 32 g/dl (33.0-37.0); MEAN PLATELET VOLUME 9.4 fl (7.4-10.4); MONO # 0.6 (0.1-0.6); MONO % 13.4 % (1.7-9.3); PLATELET COUNT 253 K/mm3 (130-400); RED BLOOD COUNT 2.96 M/mm3 (4.20-5.60); REDCELL DISTRIBUTION WIDTH-CV 19.6 % (11.5-14.5)
[2020-07-20 07:51] LABS: HEMATOCRIT 28.9 % (42.0-52.0); HEMOGLOBIN 9.3 g/dl (13.5-18.0); MEAN CORPUSCULAR HEMOGLOBIN 31 pg (27.0-31.0)
[2020-07-20 07:56] LABS: ALBUMIN 3.1 gm/dL (3.5-5.0); CALCIUM 7.9 mg/dL (8.4-10.2); CREATININE, serum 2.76 (0.66-1.25); PHOSPHOROUS 3.3 mg/dL (2.5-4.5); POTASSIUM 4.2 mmol/L (3.4-5.0)
--- NOTE | 2020-07-20 08:00 | NUR ---
PATIENT ALERT AND ORIENTED X3. VSS. PATIENT IS CURRENTLY RECIEVING DIALYSIS THROUGH LEFT FOREARM FISTULA AND TO RECIEVE 1 UNIT OF BLOOD. MORNING MEDS ARE GIVEN. HEAD TO TOE ASSESSMENT COMPLETED. LUNG SOUNDS ARE CLEAR IN ALL LOBES. HEART SOUNDS ARE REGULAR AND NORMAL. BOWEL SOUNDS ARE ACTIVE IN ALL FOUR QUADRANTS. PATIENT DENIES ANY PAIN IN THE LOWER EXTREMITIES AT THIS TIME. NO REDNESS OR ABNORMAL WARMTH NOTED IN THE CALVES. NO EDEMA NOTED. PATIENTS LEFT HIP DRESSING IS CLEAN, DRY AND INTACT. SKIN ON THE BILATERAL LOWER EXTREMITIES IS FLAKY AND SCALING. THERE ARE MULTIPLE CONTRACTURES NOTED. THE PATIENTS FEET, LEFT ARM, BILATERAL HANDS AND FINGERS ARE ALL CONTRACTED AND DEFORMED. THE PATIENT REPORTED THAT HE ATE ONLY 2 CHOCOLATE ICE CREAM CUPS FOR BREAKFAST. WILL CONTINUE TO MONITOR. PATIENT LEFT WITH DIALYSIS NURSEBERONICA.
[2020-07-20 08:29] VITALS: BP 154/78; PULSE 80; TEMP 98.1
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
[2020-07-20] MEDS ORDERED: ASPIRIN 32325 MG/TA1 PO (10:45)
[2020-07-20] MEDS ORDERED: ANTACID ULTRA1000 M1 PO (10:47)
[2020-07-20] MEDS ORDERED: CARNITOR330 MG PO (10:49)
[2020-07-20] MEDS ORDERED: FOLIC ACID 11 MG/TA1 PO (10:49)
[2020-07-20] MEDS ORDERED: NATURE'S BLEND100 M2 PO (10:50)
[2020-07-20 12:48] VITALS: BP 135/64; PULSE 96; TEMP 98.6
[2020-07-20 14:49] VITALS: BP 135/64; PULSE 96; TEMP 98.6
--- NOTE | 2020-07-20 14:54 | NUR ---
Business Editor was notified by Dr. Spivey that patient is ready for discharge back to [place] [facility] today. TAYLOR faxed clinical updates, negative COVID test, and discharge orders to [place] at [facility]. TAYLOR coordinated with Cheo to set transport time for 1500. TAYLOR contacted patient's son, Lc to provide transport time. Discharge Plan: Discharge to [facility] Skilled.
--- NOTE | 2020-07-20 15:15 | NUR ---
PATIENT DISCHARGING TO [facility]IA [facility]. INFO PACKET GIVEN TO FUEL QUALITY TECH. ATTEMPTED TO CALL REPORT, LEFT VOICE MAIL FOR NURSE WITH PHONE NUMBER FOR RETURN CALL. VICENTE OROZCO DC'Vasu IV SITE, SEE CHARTING. PATIENT DRESSED AND PERSONAL BELNONGINGS PACKED. PATIENT DISCHARGED.
== END 2020-07-20 15:15 | DRG 480 ==
LOC: COL.ER 12:19 → SURG 13:54
PROVIDERS: Nurse Practitioner; Orthopaedic Surgery Sports Medicine; Registered Nurse; ADMIT Internal Medicine Nephrology
PROC: 0QS736Z Reposition Left Upper Femur with Intramedullary Internal Fixation Device, Percutaneous Approach (ICD-10-PCS; principal; 2020-07-17 13:00)
PROC: 5A1D70Z Performance of Urinary Filtration, Intermittent, Less than 6 Hours Per Day (ICD-10-PCS; 2020-07-20)
DX: S72.22XA Displaced subtrochanteric fracture of left femur, initial encounter for closed fracture (principal); E43 Unspecified severe protein-calorie malnutrition; N18.6 End stage renal disease; R64 Cachexia; I13.2 Hypertensive heart and chronic kidney disease with heart failure and with stage 5 chronic kidney disease, or end stage renal disease; Z68.1 Body mass index [BMI] 19.9 or less, adult; Z99.2 Dependence on renal dialysis; E03.9 Hypothyroidism, unspecified; M10.9 Gout, unspecified; N40.0 Benign prostatic hyperplasia without lower urinary tract symptoms; M84.422G Pathological fracture, left humerus, subsequent encounter for fracture with delayed healing; I50.9 Heart failure, unspecified; D63.1 Anemia in chronic kidney disease; E21.2 Other hyperparathyroidism; M81.0 Age-related osteoporosis without current pathological fracture; E78.5 Hyperlipidemia, unspecified; I25.10 Atherosclerotic heart disease of native coronary artery without angina pectoris; I27.20 Pulmonary hypertension, unspecified; Z20.822 Contact with and (suspected) exposure to COVID-19; Z79.82 Long term (current) use of aspirin; Z87.891 Personal history of nicotine dependence; W19.XXXA Unspecified fall, initial encounter
CPT/HCPCS: A9284; C1713; C1769; J0690; J1100; J1170; J1644; J2370; J2405; J2704; J3010; J7030; P9016; P9040; Q5105

== ENCOUNTER → 2020-08-10 | Outpatient (CLI) | payer MEDICARE, OTHER ==
[~2020-08-10] MED LIST changes: +ANTACID ULTRA1000 M1 PO; +B-121000 MCG PO; +CALCIUM ANTACI500 MG PO; +CARNITOR100 MG/M1 PO; +CARNITOR330 MG PO; +CATAPRES 0.1MG0.1 MG PO; +CEFAZOLIN1 G1 IV; +COLACE 100100 MG/CAP PO; +DULCOLAX S10 MG/SUPP RC; +FOLIC ACID 11 MG/TA1 PO; +HYDROCORTISON28.4 GM TP; +MELATONIN3 M1 PO; +MILK OF MA400 MG/52 PO; +MIRALAX PA17 GM/Dose PO; +MUCINEX DM 30 M1 TE1; +NATURE'S BLEND100 M2 PO; +NORCO 325 MG-101 TAB PO; +PERCOCET 325 MG1 TAB PO; +PROAMATINE10 MG PO; +PROTONIX40 MG/Pack PO; +RENVELA800 MG PO; +ZOFRAN 4MG T4 MG/TAB PO; +ZOLOFT 25MG25 MG PO
== END ==
LOC: COL.RAD 09:50
DX: J18.9 Pneumonia, unspecified organism (principal); R09.89 Other specified symptoms and signs involving the circulatory and respiratory systems

== ENCOUNTER 2020-08-19 15:36 | Emergency (ER) | payer MEDICARE, OTHER ==
[~2020-08-19] VITALS: Ht 162.6 cm; Wt 50.0 kg
[~2020-08-19 15:36] MED LIST changes: -B-121000 MCG PO; -CALCIUM ANTACI500 MG PO; -CARNITOR100 MG/M1 PO; -CATAPRES 0.1MG0.1 MG PO; -CEFAZOLIN1 G1 IV; -DULCOLAX S10 MG/SUPP RC; -HYDROCORTISON28.4 GM TP; -MELATONIN3 M1 PO; -MIRALAX PA17 GM/Dose PO; -MUCINEX DM 30 M1 TE1; -PERCOCET 325 MG1 TAB PO; -PROAMATINE10 MG PO; -PROTONIX40 MG/Pack PO; -RENVELA800 MG PO; -ZOFRAN 4MG T4 MG/TAB PO; -ZOLOFT 25MG25 MG PO
[2020-08-19 15:39] VITALS: TEMP 98.8
[2020-08-19 16:26] LABS: BASO % 0.7 % (0.0-2.0); EOS # 0.2 (0.0-0.7); EOS % 3.7 % (0-4.0); GRAN # 3.9 (1.4-6.5); GRAN % 65.8 % (42.2-75.2); LYMPH # 1.1 (1.2-3.4); LYMPH % 18.1 % (20.0-51.0); MEAN CELL VOLUME 101 fl (80.0-100.0); MEAN CORPUSCULAR HGB CONC 30 g/dl (33.0-37.0); MONO # 0.7 (0.1-0.6); MONO % 11.5 % (1.7-9.3); PLATELET COUNT 245 K/mm3 (130-400); RED BLOOD COUNT 2.96 M/mm3 (4.20-5.60); REDCELL DISTRIBUTION WIDTH-CV 16.9 % (11.5-14.5)
[2020-08-19 16:37] LABS: ALBUMIN 3.7 gm/dL (3.5-5.0); BILIRUBIN,TOTAL 0.2 mg/dL (0.0-1.0); CALCIUM 11.1 mg/dL (8.4-10.2); CREATININE, serum 2.14 (0.66-1.25); TOTAL PROTEIN 7.5 gm/dL (6.4-8.2)
[2020-08-19 16:49] LABS: HEMOGLOBIN 8.9 g/dl (13.5-18.0); MEAN CORPUSCULAR HEMOGLOBIN 30 pg (27.0-31.0)
[2020-08-19 16:51] LABS: TROPONIN-I 0.127 ng/mL (0.000-0.035)
[2020-08-19 20:30] VITALS: BP 128/68; PULSE 80
== END 2020-08-19 20:35 | disposition home or self-care (01) ==
LOC: COL.ER 15:36
PROVIDERS: Nurse Practitioner Primary Care
DX: R07.9 Chest pain, unspecified (principal); R74.8 Abnormal levels of other serum enzymes; D63.1 Anemia in chronic kidney disease; I12.0 Hypertensive chronic kidney disease with stage 5 chronic kidney disease or end stage renal disease; N18.6 End stage renal disease; E21.3 Hyperparathyroidism, unspecified; Z99.2 Dependence on renal dialysis; Z79.890 Hormone replacement therapy

== ENCOUNTER → 2020-08-19 | Outpatient (REF) ==
[2020-08-19 11:07] LABS: BASO % 0.6 % (0.0-2.0); EOS # 0.2 (0.0-0.7); GRAN # 4.3 (1.4-6.5); LYMPH # 1.2 (1.2-3.4); LYMPH % 18.6 % (20.0-51.0); MEAN CELL VOLUME 102 fl (80.0-100.0); MEAN CORPUSCULAR HGB CONC 30 g/dl (33.0-37.0); MEAN PLATELET VOLUME 9.5 fl (7.4-10.4); MONO # 0.6 (0.1-0.6); MONO % 9.3 % (1.7-9.3); PLATELET COUNT 248 K/mm3 (130-400); RED BLOOD COUNT 2.62 M/mm3 (4.20-5.60); REDCELL DISTRIBUTION WIDTH-CV 16.8 % (11.5-14.5)
[2020-08-19 11:12] LABS: ALBUMIN 3.5 gm/dL (3.5-5.0); BILIRUBIN,TOTAL 0.1 mg/dL (0.0-1.0); CALCIUM 10.1 mg/dL (8.4-10.2); CREATININE, serum 1.94 (0.66-1.25); HEMATOCRIT 26.8 % (42.0-52.0); HEMOGLOBIN 7.9 g/dl (13.5-18.0); MEAN CORPUSCULAR HEMOGLOBIN 30 pg (27.0-31.0); POTASSIUM 3.8 mmol/L (3.4-5.0); TOTAL PROTEIN 7.4 gm/dL (6.4-8.2)
[2020-08-19 11:43] LABS: THYROID STIMULATING HORMONE 17.8 uIU/mL (0.465-4.680)
== END ==
LOC: ZLAB.STJ 10:55
PROVIDERS: Family Medicine
DX: N18.6 End stage renal disease (principal); R41.0 Disorientation, unspecified; E89.0 Postprocedural hypothyroidism

== ENCOUNTER → 2020-08-20 | Outpatient (CLI) | payer MEDICARE, OTHER ==
[~2020-08-20] MED LIST changes: +B-121000 MCG PO; +CALCIUM ANTACI500 MG PO; +CARNITOR100 MG/M1 PO; +CATAPRES 0.1MG0.1 MG PO; +CEFAZOLIN1 G1 IV; +DULCOLAX S10 MG/SUPP RC; +HYDROCORTISON28.4 GM TP; +MELATONIN3 M1 PO; +MIRALAX PA17 GM/Dose PO; +MUCINEX DM 30 M1 TE1; +PERCOCET 325 MG1 TAB PO; +PROAMATINE10 MG PO; +PROTONIX40 MG/Pack PO; +RENVELA800 MG PO; +ZOFRAN 4MG T4 MG/TAB PO; +ZOLOFT 25MG25 MG PO
== END ==
LOC: COL.RAD 11:57
DX: M85.80 Other specified disorders of bone density and structure, unspecified site (principal); S42.302A Unspecified fracture of shaft of humerus, left arm, initial encounter for closed fracture; Z95.820 Peripheral vascular angioplasty status with implants and grafts; M19.90 Unspecified osteoarthritis, unspecified site

== ENCOUNTER 2020-09-11 09:28 | Emergency (ER) | payer MEDICARE, OTHER ==
[~2020-09-11] VITALS: Ht 162.6 cm; Wt 50.0 kg
[2020-09-11 09:28] VITALS: TEMP 97.3
[~2020-09-11 09:28] MED LIST changes: -B-121000 MCG PO; -CALCIUM ANTACI500 MG PO; -CARNITOR100 MG/M1 PO; -CATAPRES 0.1MG0.1 MG PO; -CEFAZOLIN1 G1 IV; -DULCOLAX S10 MG/SUPP RC; -HYDROCORTISON28.4 GM TP; -MELATONIN3 M1 PO; -MIRALAX PA17 GM/Dose PO; -MUCINEX DM 30 M1 TE1; -PERCOCET 325 MG1 TAB PO; -PROAMATINE10 MG PO; -PROTONIX40 MG/Pack PO; -RENVELA800 MG PO; -ZOFRAN 4MG T4 MG/TAB PO; -ZOLOFT 25MG25 MG PO
[2020-09-11 09:48] LABS: BASO # 0.1 (0.0-0.2); BASO % 1.1 % (0.0-2.0); EOS # 0.3 (0.0-0.7); EOS % 6.6 % (0-4.0); GRAN # 2.8 (1.4-6.5); GRAN % 58.7 % (42.2-75.2); LYMPH # 1.1 (1.2-3.4); LYMPH % 23.5 % (20.0-51.0); MEAN CELL VOLUME 102 fl (80.0-100.0); MEAN CORPUSCULAR HGB CONC 29 g/dl (33.0-37.0); MEAN PLATELET VOLUME 9.1 fl (7.4-10.4); MONO # 0.5 (0.1-0.6); MONO % 10.1 % (1.7-9.3); PLATELET COUNT 252 K/mm3 (130-400); RED BLOOD COUNT 3.21 M/mm3 (4.20-5.60); REDCELL DISTRIBUTION WIDTH-CV 16.9 % (11.5-14.5)
[2020-09-11 09:54] LABS: HEMATOCRIT 32.6 % (42.0-52.0); HEMOGLOBIN 9.6 g/dl (13.5-18.0); MEAN CORPUSCULAR HEMOGLOBIN 30 pg (27.0-31.0)
[2020-09-11 09:58] LABS: ALBUMIN 3.7 gm/dL (3.5-5.0); BILIRUBIN,TOTAL 0.3 mg/dL (0.0-1.0); CALCIUM 10.2 mg/dL (8.4-10.2); CREATININE, serum 1.97 (0.66-1.25); TOTAL PROTEIN 7.5 gm/dL (6.4-8.2)
[2020-09-11 11:50] VITALS: BP 141/73; PULSE 89
== END 2020-09-11 11:50 | disposition home or self-care (01) ==
LOC: COL.ER 09:28
PROVIDERS: Family Medicine
DX: R41.82 Altered mental status, unspecified (principal); I12.0 Hypertensive chronic kidney disease with stage 5 chronic kidney disease or end stage renal disease; N18.6 End stage renal disease; D63.1 Anemia in chronic kidney disease; E03.9 Hypothyroidism, unspecified; Z99.2 Dependence on renal dialysis; Z87.891 Personal history of nicotine dependence; Z79.890 Hormone replacement therapy
CPT/HCPCS: J3010

== ENCOUNTER 2020-10-29 11:09 | Observation (INO) | payer MEDICARE, OTHER ==
[~2020-10-29] VITALS: Ht 177.8 cm; Wt 75.0 kg
[2020-10-29 11:53] LABS: ALBUMIN 3.6 gm/dL (3.5-5.0); BILIRUBIN,TOTAL 0.3 mg/dL (0.0-1.0); CALCIUM 10.2 mg/dL (8.4-10.2); CREATININE, serum 5.79 (0.66-1.25); TOTAL PROTEIN 7.4 gm/dL (6.4-8.2)
[2020-10-29 11:54] LABS: BASO # 0.1 (0.0-0.2); BASO % 1.2 % (0.0-2.0); EOS # 0.1 (0.0-0.7); EOS % 1.2 % (0-4.0); GRAN # 2.6 (1.4-6.5); HEMOGLOBIN 10.2 g/dl (13.5-18.0); INR 1.2 (0.8-3.0); LYMPH # 1.1 (1.2-3.4); LYMPH % 25.2 % (20.0-51.0); MEAN CELL VOLUME 98 fl (80.0-100.0); MEAN CORPUSCULAR HEMOGLOBIN 28 pg (27.0-31.0); MEAN CORPUSCULAR HGB CONC 29 g/dl (33.0-37.0); MEAN PLATELET VOLUME 9.9 fl (7.4-10.4); MONO # 0.4 (0.1-0.6); MONO % 9.9 % (1.7-9.3); PLATELET COUNT 248 K/mm3 (130-400); PROTHROMBIN TIME 12.8 SECONDS (9.7-12.8); RED BLOOD COUNT 3.59 M/mm3 (4.20-5.60); REDCELL DISTRIBUTION WIDTH-CV 17.2 % (11.5-14.5)
[2020-10-29 11:55] LABS: POTASSIUM 6.1 mmol/L (3.4-5.0)
[2020-10-29 11:56] LABS: HEMATOCRIT 35.2 % (42.0-52.0)
[2020-10-29 11:57] LABS: PARTIAL THROMBOPLASTIN TIME 34.5 SECONDS (26.0-37.0)
[2020-10-29] MEDS ORDERED: DULCOLAX S10 MG/SUPP RC (11:59)
[2020-10-29] MEDS ORDERED: PROAMATINE10 MG PO (12:00)
[2020-10-29] MEDS ORDERED: MUCINEX DM 30 M1 TE1 (12:01)
[2020-10-29] MEDS ORDERED: RENVELA800 MG PO (12:03)
[2020-10-29] MEDS ORDERED: B-121000 MCG PO ×2 (12:03→14:08)
[2020-10-29] MEDS ORDERED: HYDROCORTISON28.4 GM TP (12:04)
[2020-10-29] MEDS ORDERED: ZOLOFT 25MG25 MG PO ×2 (12:05→14:09)
[2020-10-29] MEDS ORDERED: MELATONIN3 M1 PO (12:06)
[2020-10-29] MEDS ORDERED: PROTONIX40 MG/Pack PO (12:06)
[2020-10-29 12:17] LABS: TROPONIN-I 0.105 ng/mL (0.000-0.035)
[2020-10-29] MEDS ORDERED: CALCIUM ANTACI500 MG PO (13:17)
[2020-10-29] MEDS ORDERED: MIRALAX PA17 GM/Dose PO (13:23)
[2020-10-29] MEDS ORDERED: ZOFRAN 4MG T4 MG/TAB PO (14:12)
[2020-10-29 15:39] VITALS: BP 139/81; PULSE 101; TEMP 97.8
--- NOTE | 2020-10-29 16:17 | NUR ---
Pt. arrived from ER around 1600. RYAN Santana in to see this patient. Marie and this RN checked on patient and Marie assessed the patient. Pt. had a BM and this RN and UZMA Hussein cleaned patient. Jovita completed blood sugar check per this RN request, blood sugar was 34. RYAN Santana had already left and this RN called her to let her know of the critically low blood sugar. New orders were obtained. Pt. given medication per protocol. Will start pt. on IVF with dextrose per protocol until sugar is above 70. This RN let Esther know when the sugar is increased. Pt. is lethargic but responds to pain by opening his eyes and grunting. Safety maintained, bed alarm on. Frequent rounding in place. Will recheck blood sugar at 16:29.
--- NOTE | 2020-10-29 16:31 | NUR ---
Pt.'s blood sugar up to 92. Nurse Practitioner up to see pt. while the 92 blood sugar resulted. ANALYTICAL DATA MINER Esther requesting to check the patient every hour for the next two hours. ANALYTICAL DATA MINER Esther reports she will check with Dr. Spivey to see about further interventions
--- NOTE | 2020-10-29 17:01 | NUR ---
Call from lab inquiring if two blood culture orders were needed. This RN did not know, CERTIFIED TOWER CLIMBER Esther notified. Esther reports she will contact Dr. Spivey to see if more than one blood culture will be needed or not and will follow up with tis RN.
--- NOTE | 2020-10-29 18:56 | NUR ---
Dr. Spivey in to see the patient. New orders obtained for different IVF. RN completed admission paperwork best to ability, pt unable to stay awake to answer questions.
[2020-10-29 19:47] VITALS: BP 151/80; PULSE 100; TEMP 98.5
--- NOTE | 2020-10-29 23:26 | NUR ---
Patient lethargic and drowsy upon shift start. Patient arousable with verbal and tactile stimulation but falls back to sleep immediately. Patient full awake around 2100. Patient A/Ox1. Patient able to tell his name, date of , and his son's name. Patient requesting to eat. Patient request pudding and crackers. Chocolate pudding and crackers provided per patient request. Patient denies any pain or discomfort. Denies SOB or dyspnea. Patient refusing to take evening meds. Call light within reach. Will continue to monitor.
[2020-10-30 00:21] VITALS: BP 117/68; PULSE 98; TEMP 98.1
--- NOTE | 2020-10-30 04:22 | NUR ---
Patient awake around 0400 and calling out. Patient requesting sandwitch and orange juice. Offered sandwitch box and orange juice per patient request. Patient A/Ox3. Patient oriented to person, date, and situation. Patient confused about current place, but aware he is from [facility]. Oriented patient to the room. Call light within reach. Will continue to monitor.
[2020-10-30 04:56] VITALS: BP 145/72; PULSE 95; TEMP 97.7
[2020-10-30 07:43] VITALS: BP 143/73; PULSE 86; TEMP 97.7
[2020-10-30 10:55] LABS: BASO % 0.5 % (0.0-2.0); EOS # 0.2 (0.0-0.7); EOS % 4.1 % (0-4.0); GRAN # 3.9 (1.4-6.5); LYMPH # 0.9 (1.2-3.4); MEAN CELL VOLUME 99 fl (80.0-100.0); MEAN CORPUSCULAR HGB CONC 29 g/dl (33.0-37.0); MEAN PLATELET VOLUME 10.1 fl (7.4-10.4); MONO # 0.6 (0.1-0.6); PLATELET COUNT 248 K/mm3 (130-400); RED BLOOD COUNT 3.22 M/mm3 (4.20-5.60)
[2020-10-30 10:56] LABS: HEMATOCRIT 31.9 % (42.0-52.0); HEMOGLOBIN 9.1 g/dl (13.5-18.0); MEAN CORPUSCULAR HEMOGLOBIN 28 pg (27.0-31.0)
[2020-10-30 11:33] LABS: ALBUMIN 3.2 gm/dL (3.5-5.0); CALCIUM 9.2 mg/dL (8.4-10.2); CREATININE, serum 6.23 (0.66-1.25); PHOSPHOROUS 5.9 mg/dL (2.5-4.5); POTASSIUM 5.6 mmol/L (3.4-5.0)
--- NOTE | 2020-10-30 12:04 | NUR ---
manager personnel selection made call to patient's sons listed as contacts: Lc ([phone]) but he did not answer and no voicemail was set up, and Jadyn ([phone]) and initially left voicemail. Jadyn called back and was able to confirm that the patient resides at [facility] and plans to discharge back there when ready. DPOA on file lists patient's late and verified with Jadyn that an updated version has not been completed. The paitent has 3 sons: Luisdavid, Jadyn, and Paulo Schwarz ([phone]). Jadyn expressed desire for his father to complete a new DPOA form and TAYLOR Gill explained that if the patient is of sound mind we will be able to complete that here otherwise all three children are the decision makers. TAYLOR contacted and faxed updates to Cheo at [facility]. Discharge plan: [facility]
--- NOTE | 2020-10-30 13:08 | NUR ---
PATIENT TOLERATED HD TX WITH 1.4L FLUID REMOVAL TODAY. NEXT PLANNED HD TX ON Monday11/02/20 @ 0800.
[2020-10-30 16:00] VITALS: BP 133/68; PULSE 91; TEMP 98.9
--- NOTE | 2020-10-30 19:34 | NUR ---
Patient has had an ok day. Dialysis done this morning, patient tolerated it well. Patient has not had much of an appetite, but has eaten 25% of all of his meals. Fluids running as ordered. Patient denies any pain, discomfort, or further needs at this time. VSS. Call light in reach.
[2020-10-30 19:40] VITALS: BP 117/42; PULSE 93; TEMP 98.4
--- NOTE | 2020-10-30 22:52 | NUR ---
Patient lying in bed and watching TV upon enter the room. Shift assessment completd. Patient A/Ox3. Patient calling out a lot tonight. Patient c/o hospital bed is not comfortable and not able to sleep. Patient also c/o generalized pain all over to his body. Offered PRN Tylenol but patient refused, stating that Tyelnol doesn't help at all. Called and verbal order received to given Percocet 5mg PRN Q 6hr. PRN Percocet given per JUN. PRN Melatonin given for sleep. Call light within reach. Bed alarms on. Fall precaution maintained. Will continue to monitor.
[2020-10-30 23:50] VITALS: BP 124/48; PULSE 85; TEMP 97.6
[2020-10-31 03:32] VITALS: BP 130/49; PULSE 79; TEMP 98.2
--- NOTE | 2020-10-31 06:09 | NUR ---
Patient awake all night. PRN Melatonin given for sleep but not effective. Patient has been calling out/yelling all night. Patient c/o not comfortable in bed. Generalized pain to his arms and legs. Refused PRN Tylenol. Updated and received order for PRN Percocet. PRN Percocet given at 21:30 pm but not very effective. Frequent repositioning every hour and warm blanket offered. Patient had sandwitch box and drank orange juice at midnight. Incontinent brief changed x2. Small BM x1. Rhoda care provided. Call light within reach. Will continue to monitor.
[2020-10-31 07:25] VITALS: BP 124/75; PULSE 88; TEMP 98.5
--- NOTE | 2020-10-31 12:40 | NUR ---
Jessica called WOLFGANG Grider to let him know that the pt was ready to dc today. Lindsay setup transportation for 2:30 pm. Sw call son,Isadora and informed Sw that he would be d/c today. Aristides asked Sw how he was doing medically and Jessica could not give him that information and inform him that he or I could call the nurse to get a update. Aristides got snappy and said "you are his SW and you dont know his how he is doing". Jessica explained that I am not a nurse, but i will have the nurse call him. Sw informed nurse and nurse informed Sw she would give him update before he is D/c. Jessica will fax over d/c orders, Covid test to lindsay. 12:45 pm.
[2020-10-31] MEDS ORDERED: PERCOCET 325 MG1 TAB PO (12:42)
--- NOTE | 2020-10-31 14:57 | NUR ---
Jessica recieved a phone all from berlin from [facility] stating the pt d/c orders stated he was skilled and he had only been admitted for 2 nights. Jessica informed the nurse who informed the doctor and house sup. Herb coulter fixed d/c order back to [facility]. Jessica faxed over new D/c orders to [place] at 3:00 pm. No other needs stated.
--- NOTE | 2020-10-31 15:27 | NUR ---
Patient has had an eventful morning. Patient did require frequent repositioning as he could not get comfortable. This RN and another RN provided austyn care. Patient was picked up by [facility] @[phone].
== END 2020-10-31 15:30 ==
LOC: COL.ER 11:09 → MEDICAL 12:17
PROVIDERS: Family Medicine; ADMIT Internal Medicine Nephrology
DX: R41.82 Altered mental status, unspecified (principal); E87.5 Hyperkalemia; I12.0 Hypertensive chronic kidney disease with stage 5 chronic kidney disease or end stage renal disease; N18.6 End stage renal disease; D63.1 Anemia in chronic kidney disease; E87.2 Acidosis; E89.0 Postprocedural hypothyroidism; E21.2 Other hyperparathyroidism; Z20.822 Contact with and (suspected) exposure to COVID-19; M81.0 Age-related osteoporosis without current pathological fracture; E16.2 Hypoglycemia, unspecified; K21.9 Gastro-esophageal reflux disease without esophagitis; E43 Unspecified severe protein-calorie malnutrition; M10.9 Gout, unspecified; Z99.2 Dependence on renal dialysis; Z87.891 Personal history of nicotine dependence; Z79.890 Hormone replacement therapy; Z79.82 Long term (current) use of aspirin
CPT/HCPCS: G0378; J1644; J1815; J7030; J7070; J7120; Q5105

== ENCOUNTER 2020-11-20 11:14 | Inpatient (IN) | payer MEDICARE, OTHER ==
[2020-11-20] VITALS (11 sets, daily range): BP systolic 126–172; BP diastolic 60–90; PULSE 89–105; TEMP 98–98.7
[~2020-11-20] VITALS: Ht 177.8 cm; Wt 51.9 kg
[~2020-11-20 11:14] MED LIST changes: +B-121000 MCG PO; +CALCIUM ANTACI500 MG PO; +DULCOLAX S10 MG/SUPP RC; +HYDROCORTISON28.4 GM TP; +MELATONIN3 M1 PO; +MIRALAX PA17 GM/Dose PO; +MUCINEX DM 30 M1 TE1; +PERCOCET 325 MG1 TAB PO; +PROAMATINE10 MG PO; +PROTONIX40 MG/Pack PO; +RENVELA800 MG PO; +ZOFRAN 4MG T4 MG/TAB PO; +ZOLOFT 25MG25 MG PO
--- NOTE | 2020-11-20 14:30 | NUR ---
Patient to room 314 by personal wheelchair from [facility]. Nursing staffx2 assisted the patient by full body lift into the bed. Patient A&Ox3, pleasant. IV initiated in RT AC. Denies pain and reports discomfort from laying in bed. Nurse oriented the patient to location, room and call light. No further needs expressed from the patient. Call light within reach
[2020-11-20 15:21] LABS: BASO % 1.2 % (0.0-2.0); EOS # 0.2 (0.0-0.7); EOS % 6.1 % (0-4.0); GRAN % 58.5 % (42.2-75.2); HEMOGLOBIN 10.7 g/dl (13.5-18.0); LYMPH # 0.9 (1.2-3.4); LYMPH % 24.6 % (20.0-51.0); MEAN CELL VOLUME 97 fl (80.0-100.0); MEAN CORPUSCULAR HEMOGLOBIN 29 pg (27.0-31.0); MEAN CORPUSCULAR HGB CONC 29 g/dl (33.0-37.0); MEAN PLATELET VOLUME 9.7 fl (7.4-10.4); MONO # 0.3 (0.1-0.6); MONO % 9.3 % (1.7-9.3); PLATELET COUNT 184 K/mm3 (130-400); RED BLOOD COUNT 3.76 M/mm3 (4.20-5.60); REDCELL DISTRIBUTION WIDTH-CV 17.7 % (11.5-14.5)
[2020-11-20 15:25] LABS: HEMATOCRIT 36.5 % (42.0-52.0)
[2020-11-20 15:27] LABS: INR 1.2 (0.8-3.0); PROTHROMBIN TIME 13.1 SECONDS (9.7-12.8)
[2020-11-20] MEDS ORDERED: CATAPRES 0.1MG0.1 MG PO (16:14)
[2020-11-20] MEDS ORDERED: NORVASC 5MG5 MG/TAB PO (16:18)
[2020-11-20] MEDS ORDERED: NORCO 325 MG-101 TAB PO ×2 (16:19→16:20)
[2020-11-20] MEDS ORDERED: CARNITOR100 MG/M1 PO (16:22)
[2020-11-20 16:25] LABS: ALBUMIN 3.5 gm/dL (3.5-5.0); ANION GAP 7 mmol/L (7-16); AST,SGOT 12 U/L (15-37); BILIRUBIN,TOTAL 0.1 mg/dL (0.0-1.0); BLOOD UREA NITROGEN 15 mg/dL (9-20); CALCIUM 9.4 mg/dL (8.4-10.2); CARBON DIOXIDE 30 mmol/L (22-30); CHLORIDE 102 mmol/L (98-107); CREATININE, serum 2.62 (0.66-1.25); GLUCOSE 75 mg/dL (74-106); POTASSIUM 3.8 mmol/L (3.4-5.0); SODIUM 139 mmol/L (137-145); TOTAL PROTEIN 7.2 gm/dL (6.4-8.2)
[2020-11-20 16:30] LABS: ALANINE AMINOTRANSFERASE < 4 U/L (4-49); ALKALINE PHOSPHATASE 1217 U/L (50-136)
--- NOTE | 2020-11-20 17:21 | NUR ---
Patient taken by bed to the OR. No further needs expressed
--- NOTE | 2020-11-20 18:36 | NUR ---
Patient back to room 314 from a procedure. Patient alert, but drowsy and falls back to sleep. VSS, post op VS monitored. IV CDI. Fistula site CDI. Denies pain and discomfort. No further needs expressed. Call light within reach. Nurse ordered dinner
--- NOTE | 2020-11-20 20:00 | NUR ---
PATIENT IS CALM IN THE ROOM ON POST OP VITALS STABLE.REPORTS PAIN BUT DECLINES MEDICATION.PATIENT REFUSED FOOD.DRESSING SITE CDI.NO OTHER NEEDS AT THIS TIME.
[2020-11-21 04:15] VITALS: BP 137/68; PULSE 97; TEMP 98.1
--- NOTE | 2020-11-21 05:34 | NUR ---
PATIENT SLEPT MOST OF THE NIGHT.ATE ONLY CANDY LAST NIGHT.DOES NOT TAKE ENOUGH ORALLY.PATIENT STATES THAT HE DOES NOT LIKE HOSPITAL FOOD.DRESSING ON THE L ARM IS CDI.NO OTHER NEEDS AT THIS TIME.
[2020-11-21 07:20] LABS: EOS # 0.4 (0.0-0.7); EOS % 9.4 % (0-4.0); GRAN # 1.8 (1.4-6.5); GRAN % 46.1 % (42.2-75.2); HEMATOCRIT 38.1 % (42.0-52.0); HEMOGLOBIN 10.7 g/dl (13.5-18.0); LYMPH # 1.3 (1.2-3.4); LYMPH % 32.8 % (20.0-51.0); MEAN CELL VOLUME 100 fl (80.0-100.0); MEAN CORPUSCULAR HEMOGLOBIN 28 pg (27.0-31.0); MEAN CORPUSCULAR HGB CONC 28 g/dl (33.0-37.0); MEAN PLATELET VOLUME 9.6 fl (7.4-10.4); MONO # 0.4 (0.1-0.6); MONO % 10.4 % (1.7-9.3); PLATELET COUNT 189 K/mm3 (130-400); RED BLOOD COUNT 3.81 M/mm3 (4.20-5.60); REDCELL DISTRIBUTION WIDTH-CV 17.6 % (11.5-14.5)
[2020-11-21 07:34] LABS: ALBUMIN 3.4 gm/dL (3.5-5.0); CALCIUM 9.1 mg/dL (8.4-10.2); CREATININE, serum 3.01 (0.66-1.25); PHOSPHOROUS 3.8 mg/dL (2.5-4.5); POTASSIUM 4.1 mmol/L (3.4-5.0)
--- NOTE | 2020-11-21 07:35 | NUR ---
PT WANTED BREAKFAST; THIS RN HELPED HIM ORDER, PER REPORT THE RN STATES THE PATIENT HAS BEEN EATING CANDY, OREOS AND OATMEAL CREME PIES ALL NIGHT.
[2020-11-21 12:18] VITALS: BP 150/70; PULSE 86; TEMP 98
--- NOTE | 2020-11-21 12:41 | NUR ---
Plan is to Return to [facility]. SW met with patient about DC and Care. Patient reports that he is ready to go back home and talked with his PCP about DC> Patient reports that he has a son Albert who is apart of his care but does not have his phone number. Patient reports that he uses a wheelchair for mobility. Patient reports that he does not remember his PCP's name but had a visit 3 months ago. Paient reports that his in some pain due to the surgery. Patient reports that he uses O2 all the time but does not know how may liters. Patient reports that he does not know much about his care because people just do it, they dont tell him what is going on. Patient shares that he has had good care and feels supported in returning to [facility]> NF
[2020-11-21 15:30] VITALS: BP 152/74; PULSE 89; TEMP 97.7
[2020-11-21 19:42] VITALS: BP 149/76; PULSE 87; TEMP 98.5
--- NOTE | 2020-11-21 20:55 | NUR ---
Pt has been fine. Pain rated 6/10. Narco was given. Will continue to monitor.
[2020-11-22 00:35] VITALS: BP 143/72; PULSE 94; TEMP 98.2
[2020-11-22 04:57] VITALS: BP 152/79; PULSE 95; TEMP 98
--- NOTE | 2020-11-22 07:05 | NUR ---
PT LAYING IN BED DENIES ANY NEEDS AT THIS TIME.
[2020-11-22 07:12] LABS: BASO % 0.8 % (0.0-2.0); EOS # 0.4 (0.0-0.7); EOS % 9.2 % (0-4.0); GRAN # 2.1 (1.4-6.5); GRAN % 52.9 % (42.2-75.2); HEMOGLOBIN 10.5 g/dl (13.5-18.0); LYMPH % 26.3 % (20.0-51.0); MEAN CELL VOLUME 98 fl (80.0-100.0); MEAN CORPUSCULAR HEMOGLOBIN 28 pg (27.0-31.0); MEAN CORPUSCULAR HGB CONC 29 g/dl (33.0-37.0); MEAN PLATELET VOLUME 9.6 fl (7.4-10.4); MONO # 0.4 (0.1-0.6); MONO % 10.5 % (1.7-9.3); PLATELET COUNT 195 K/mm3 (130-400); RED BLOOD COUNT 3.77 M/mm3 (4.20-5.60); REDCELL DISTRIBUTION WIDTH-CV 17.3 % (11.5-14.5)
[2020-11-22 07:13] LABS: HEMATOCRIT 36.8 % (42.0-52.0)
[2020-11-22 07:23] LABS: ALBUMIN 3.4 gm/dL (3.5-5.0); CALCIUM 8.8 mg/dL (8.4-10.2); CREATININE, serum 3.93 (0.66-1.25); PHOSPHOROUS 3.8 mg/dL (2.5-4.5); POTASSIUM 4.8 mmol/L (3.4-5.0)
[2020-11-22 08:26] VITALS: BP 152/73; PULSE 76
--- NOTE | 2020-11-22 10:37 | NUR ---
PT IS HAVING A STABLE DAY. INCISION SITE IS CLEAN, DRY AND INTACT. NO OTHER CONCERNS.
[2020-11-22 15:06] VITALS: BP 177/94; PULSE 93; TEMP 98.3
[2020-11-22 19:44] VITALS: BP 137/843; PULSE 95; TEMP 98.4
[2020-11-23] VITALS (7 sets, daily range): BP systolic 116–156; BP diastolic 60–83; PULSE 79–100; TEMP 97.8–98.5
--- NOTE | 2020-11-23 05:46 | NUR ---
PT REMAINS A/OX4, DRESSING OVER FISTULAT SITE REMAINS WITH THE SAME SCANT DRAINAGE NOTED FROM BEGINNING OF SHIFT, THRILL AND BRUIT AUSCULATED AND REMAINS STRONG. PT CONTINUES TO C/O PAIN TO RECTIUM 08/10. PT STATES THIS IS NOT A NEW CONCERN. MEDICATION ADMINISTERED ORDERED. BED LOW, DOOR OPEN, PT VISIBLE. CALL LIGHT WITHIN REACH.
--- NOTE | 2020-11-23 06:56 | NUR ---
PT AWAKE, ORDERED BREAKFAST GETTING READY FOR DIALYSIS, AND DISCHARGE BACK TO [facility].
[2020-11-23 07:00] LABS: BASO % 0.9 % (0.0-2.0); EOS # 0.2 (0.0-0.7); EOS % 5.1 % (0-4.0); GRAN # 2.4 (1.4-6.5); HEMATOCRIT 37.8 % (42.0-52.0); HEMOGLOBIN 10.7 g/dl (13.5-18.0); LYMPH # 1.1 (1.2-3.4); LYMPH % 24.7 % (20.0-51.0); MEAN CELL VOLUME 98 fl (80.0-100.0); MEAN CORPUSCULAR HEMOGLOBIN 28 pg (27.0-31.0); MEAN CORPUSCULAR HGB CONC 28 g/dl (33.0-37.0); MEAN PLATELET VOLUME 9.9 fl (7.4-10.4); MONO # 0.5 (0.1-0.6); MONO % 12.1 % (1.7-9.3); PLATELET COUNT 214 K/mm3 (130-400); RED BLOOD COUNT 3.84 M/mm3 (4.20-5.60); REDCELL DISTRIBUTION WIDTH-CV 17.2 % (11.5-14.5)
[2020-11-23 07:19] LABS: ALBUMIN 3.5 gm/dL (3.5-5.0); CALCIUM 8.3 mg/dL (8.4-10.2); CREATININE, serum 4.79 (0.66-1.25); PHOSPHOROUS 4.4 mg/dL (2.5-4.5); POTASSIUM 5.3 mmol/L (3.4-5.0)
--- NOTE | 2020-11-23 09:27 | NUR ---
workers compensation claims assistant contacted [place] with [facility] and advised of possible transfer back today. Worker faxed [place] clinical information.
--- NOTE | 2020-11-23 09:27 | NUR ---
PT IS CURRENTLY AT DIALYSIS.
--- NOTE | 2020-11-23 11:09 | NUR ---
assembly line worker spoke with Marie, provider, and confirmed patient's discharge is planned for Monday. Worker notified Cheo via [facility].
--- NOTE | 2020-11-23 15:07 | NUR ---
LATE ENTRY FROM 1000 TX DC'D TODAY DUE UNSUCCESSFUL ATTEMPTS FOR 2ND NEEDLESTICK SITE TO [facility]. DR. KULKARNI OK TO RETURN THE PATIENT FOR HD TX TOMORROW, Monday11/24/20 @ 0800.
--- NOTE | 2020-11-23 23:49 | NUR ---
PT ALERT AND ORIENTED. PT COMPLAINS OF RIGHT SHOULDER PAIN 5/10. PT RIGHT UPPER LOBE COARSE UPON AUSCULTATION. PT HAS 1+ PULSES PALPATED IN BILATERAL DORSALIS PEDIS AND POSTERIOR TIBIAL. CAP REFILL <3S. PT HAS REDDENED AREA OVER COCCYX, BLANCHABLE. AREA IS TENDER TO TOUCH. PT STATES HIS RECTUM IS CAUSING PAIN. PT HAS MASS OVER LEFT FLANK, NON-TENDER. PT CALL LIGHT WITHIN REACH. PT INCONTINENT OF STOOL, CLEANED WITH PERSONAL WIPES. DEPEND CHANGED AT THIS TIME. PT READJUSTED TO OTHER HIP.
--- NOTE | 2020-11-24 02:42 | NUR ---
PT GROANING IN BED. PT STATES HE IS IN PAIN, 08/10. PRN PAIN MEDICATION GIVEN AT THIS TIME.
--- NOTE | 2020-11-24 02:51 | NUR ---
PT INCONTINENT OF STOOL. PT CLEANED AND REPOSITIONED ON OPPOSITE HIP AT THIS TIME.
[2020-11-24 04:19] VITALS: BP 114/68; PULSE 77; TEMP 98.2
--- NOTE | 2020-11-24 04:49 | NUR ---
PT CONTINUING ON PLAN OF CARE. PT DRESSING REMAINED CLEAN, DRY, AND INTACT THIS SHIFT. PT SUTURES IN PLACE THIS SHIFT. PT COMPLAINED OF RIGHT SHOULDER PAIN, MANAGED WITH PRN PAIN MEDICATION. PT REPOSITIONED DURING SHIFT TO RELIEVE PRESSURE OFF COCCYX, INCONTINENT CARE PROVIDED. PT ABLE TO REST THIS SHIFT. PT FREE FROM INJURY THIS SHIFT.
[2020-11-24 07:39] VITALS: BP 130/62; PULSE 81; TEMP 97.7
[2020-11-24 08:59] LABS: BASO % 0.8 % (0.0-2.0); EOS # 0.2 (0.0-0.7); GRAN # 2.3 (1.4-6.5); GRAN % 60.1 % (42.2-75.2); LYMPH # 0.8 (1.2-3.4); LYMPH % 20.7 % (20.0-51.0); MEAN CELL VOLUME 95 fl (80.0-100.0); MEAN CORPUSCULAR HGB CONC 30 g/dl (33.0-37.0); MEAN PLATELET VOLUME 8.9 fl (7.4-10.4); MONO # 0.5 (0.1-0.6); MONO % 13.1 % (1.7-9.3); PLATELET COUNT 173 K/mm3 (130-400); RED BLOOD COUNT 3.32 M/mm3 (4.20-5.60); REDCELL DISTRIBUTION WIDTH-CV 16.9 % (11.5-14.5)
[2020-11-24 09:00] LABS: HEMATOCRIT 31.5 % (42.0-52.0); HEMOGLOBIN 9.3 g/dl (13.5-18.0); MEAN CORPUSCULAR HEMOGLOBIN 28 pg (27.0-31.0)
[2020-11-24 09:09] LABS: ALBUMIN 3.2 gm/dL (3.5-5.0); CALCIUM 7.6 mg/dL (8.4-10.2); CREATININE, serum 5.44 (0.66-1.25); PHOSPHOROUS 4.1 mg/dL (2.5-4.5); POTASSIUM 5.7 mmol/L (3.4-5.0)
[2020-11-24] MEDS ORDERED: CEFAZOLIN1 G1 IV (10:40)
[2020-11-24 12:45] VITALS: BP 147/77; PULSE 90; TEMP 98.5
--- NOTE | 2020-11-24 12:57 | NUR ---
PATIENT TOLERATED HD TX WITH 200 ML FLUID REMOVAL TODAY. NEXT PLANNED HD TX TOMORROW, Monday11/25/[address] [facility].
--- NOTE | 2020-11-24 13:08 | NUR ---
Patient will return back to fpc care at [facility] today at 3:00 via facility wheelchair van. Worker left message with patient's son, Aristides of transfer plans. Worker faxed orders to [facility].
--- NOTE | 2020-11-24 13:59 | NUR ---
Initial visit; Patient shouting, [employer] attempted to see to his immediate needs explaining a nurse would be with him momentarily. [employer] could detect no emergency while talking with the patient who only wanted papers signed so he could go home. Papers were in the process.
== END 2020-11-24 15:15 | DRG 252 ==
LOC: MEDICAL 11:14
PROVIDERS: Surgery; ADMIT Internal Medicine Nephrology
PROC: 5A1D70Z Performance of Urinary Filtration, Intermittent, Less than 6 Hours Per Day (ICD-10-PCS; 2020-11-20)
PROC: 05QY0ZZ Repair Upper Vein, Open Approach (ICD-10-PCS; principal; 2020-11-20 17:00)
DX: T82.7XXA Infection and inflammatory reaction due to other cardiac and vascular devices, implants and grafts, initial encounter (principal); N18.6 End stage renal disease; D63.1 Anemia in chronic kidney disease; M10.9 Gout, unspecified; N40.0 Benign prostatic hyperplasia without lower urinary tract symptoms; E03.9 Hypothyroidism, unspecified; G89.29 Other chronic pain; L98.499 Non-pressure chronic ulcer of skin of other sites with unspecified severity; E21.2 Other hyperparathyroidism; Y83.8 Other surgical procedures as the cause of abnormal reaction of the patient, or of later complication, without mention of misadventure at the time of the procedure; M81.0 Age-related osteoporosis without current pathological fracture; Z87.891 Personal history of nicotine dependence; Z99.2 Dependence on renal dialysis
CPT/HCPCS: J0690; J1644; J2704; J7030; Q5105

== ENCOUNTER → 2020-12-21 | Outpatient (CLI) | payer MEDICARE, OTHER ==
[~2020-12-21] MED LIST changes: +CARNITOR100 MG/M1 PO; +CATAPRES 0.1MG0.1 MG PO; +CEFAZOLIN1 G1 IV
[2020-12-21 20:31] LABS: POTASSIUM 4.3 mmol/L (3.4-5.0)
== END ==
LOC: ZLAB.STJ 18:55
PROVIDERS: Family Medicine
DX: N18.6 End stage renal disease (principal); E78.5 Hyperlipidemia, unspecified

== ENCOUNTER → 2021-01-04 | Outpatient (CLI) | payer MEDICARE, OTHER | LOC: ZLAB.STJ 16:52 | DX: E21.2 Other hyperparathyroidism (principal) ==

== ENCOUNTER → 2021-01-18 | Outpatient (CLI) | payer MEDICARE, OTHER | LOC: ZLAB.STJ 18:18 | DX: N40.1 Benign prostatic hyperplasia with lower urinary tract symptoms (principal) ==

== ENCOUNTER → 2021-03-23 | Outpatient (CLI) | payer MEDICARE, OTHER | LOC: ZLAB.STJ 11:35 | DX: E21.2 Other hyperparathyroidism (principal) ==

== ENCOUNTER 2021-04-06 17:24 | Inpatient (IN) | payer MEDICARE, OTHER ==
[~2021-04-06] VITALS: Ht 25.4 cm; Wt 53.5 kg
[~2021-04-06 17:24] MED LIST changes: +LEVOXYL0.175 MG PO; -LEVOXYL0.2 MG PO; +NORVASC 10MG10 MG PO; +ZOLOFT 50MG50 MG PO
--- NOTE | 2021-04-06 19:11 | NUR ---
Report recieved from ems. Patient in room. Sating 100% on 2L of O2. Bedros aware that patient has arrived. Report given to NANCY Costello.
--- NOTE | 2021-04-06 20:07 | NUR ---
Patient is resting in bed, alart and oriented x 4, 2L O2 NC, VSS. Pt states he does not know why he is in the hospital.
[2021-04-06 20:12] VITALS: BP 113/56; PULSE 73; TEMP 98
[2021-04-06] MEDS ORDERED: MUCINEX DM 30 M1 TE1 PO (21:08)
[2021-04-06] MEDS ORDERED: FLEXERIL5 MG PO (21:10)
[2021-04-06] MEDS ORDERED: [UNRECOGNIZED DRUG - OTHER] PO (21:14)
[2021-04-06] MEDS ORDERED: TOPROL XL 25MG25 MG PO (21:16)
[2021-04-06] MEDS ORDERED: OXYGEN NASAL.CANN (21:19)
[2021-04-07 00:30] VITALS: BP 94/48; PULSE 70; TEMP 97.9
[2021-04-07 04:37] VITALS: BP 122/61; PULSE 72; TEMP 97.6
--- NOTE | 2021-04-07 06:34 | NUR ---
Pt continues at 2L NC. Complains of pain in chest and back. PRN provided. Report will be given to day RN.
[2021-04-07 09:09] LABS: BASO % 0.3 % (0.0-2.0); EOS % 0.3 % (0.0-4.0); GRAN # 2.6 K/mm3 (1.4-6.5); GRAN % 68.1 % (42.2-75.2); HEMATOCRIT 41.1 % (42.0-52.0); HEMOGLOBIN 11.7 g/dl (13.5-18.0); LYMPH # 0.8 K/mm3 (1.2-3.4); LYMPH % 20.8 % (20.0-51.0); MEAN CELL VOLUME 98 fl (80.0-100.0); MEAN CORPUSCULAR HEMOGLOBIN 28 pg (27-31); MEAN CORPUSCULAR HGB CONC 29 g/dl (33.0-37.0); MONO # 0.4 K/mm3 (0.1-0.6); PLATELET COUNT 140 K/mm3 (130-400); REDCELL DISTRIBUTION WIDTH-CV 17.2 % (11.5-14.5)
--- NOTE | 2021-04-07 09:55 | NUR ---
PT PLEASANT, VERY DROWSY, WAKES WITH CALLING NAME, PT APPEARS TO HAVE L SIDED FACIAL DROOP, UNABLE TO DETERMINE IF CHRONIC OR NOT, BP SOFT WITH DIALYSIS, HOLDING BP MEDS, ASSESSMENT PERFORMED, RHONCI HEARD TO RUL, PT ON 2L NC WHICH IS PT BASELINE, PT L ARM HAS MULTIPLE BREAKS IN KNOWN HISTORY, PT DENYING PAIN AT THIS TIME, PT HAS FIRM ABD, UNABLE TO TELL ME LAST BM, BABY DOCTOR BERONICA REPORTING PT CHOKING ON SCRAMBLED EGGS WHILE SITTING AT 90 DEGREES. HOLDING MEDS UNTIL AFTER DIALYSIS, MEDS CRUSHED WILL GIVEN IN APPLESAUCE. BECKY PIERRE GAVE VERBAL ORDER FOR PCR COVID AND ST CONSULT. BOTH ORDERS PLACED. REMDESIVIR INFUSING DURING LAST PORTION OF DIALYSIS TREATMENT. NO OTHER NEEDS
[2021-04-07 10:09] LABS: ALBUMIN 2.4 gm/dL (3.4-4.8); CREATININE, serum 5.82 mg/dL (0.72-1.25); PHOSPHOROUS 5.7 mg/dL (2.3-4.7)
[2021-04-07 10:15] LABS: POTASSIUM 5.8 mmol/L (3.5-4.5)
--- NOTE | 2021-04-07 11:07 | NUR ---
Dowel Pin Man contacted patient's son, Aristides (ph#[phone]) to discuss discharge planning as patient is in isolation for COVID 19. SW attempted to contact patient's room and Virginia, metabolic specialist answered. Virginia advised patient is very sleepy at this time and she did not feel he would be able to answer any questions as he is currently receiving dialysis. Aristides states patient lives at [facility] and he was not aware patient was admitted to the hospital. TAYLOR contacted patient's RN, Evonne and requested she contact Aristides with a clinical update. TAYLOR contacted Cheo at [facility] and faxed clinical updates. Cheo advised he believes Aristides is patient's DPOA-HC and can fax over documentation. DPOA-HC in the EMR designates patient's late . Cheo requested that patient be re-tested for COVID here in the hospital. TAYLOR contacted [facility] and requested this. Cheo states he is unsure when they will be able to accept patient back due to his COVID status. Discharge Plan: [facility].
[2021-04-07 11:26] VITALS: BP 114/52; PULSE 76; TEMP 98.1
--- NOTE | 2021-04-07 11:27 | NUR ---
PATIENT HYPOTENSIVE DURING HD TX WAS ABLE TO REMOVE 800ML OF FLUID. PATIENT MOANS INTERMITTENTLY DURING TX BUT WHEN ASKED IF HE HAS ANY DISCOMFFORT HE STATES, "NO." NEXT PLANNED HD TX ON Monday04/09/21 @ 0800.
--- NOTE | 2021-04-07 12:09 | NUR ---
ATTEMPTING TO GIVE PT PILLS CRUSHED IN APPLESAUCE, PT TOOK ONE BITE AND REFUSED TO TAKE ANY MORE, EXPLAINED IMP OF MEDICATION TO PT WELLNESS AND PT STILL REFUSING "THEY TASTE TOO BAD".
[2021-04-07 17:20] VITALS: BP 132/60; PULSE 81; TEMP 98.3
--- NOTE | 2021-04-07 17:41 | NUR ---
PT CRYING OUT WITH PAIN, PT TOOK NORCO, PT CRYING OUT FOR MOTHER, APPEARS UNCONSOLABLE, DENIES HUNGER, IV MEDICATIONS GIVEN NO OTHER NEEDS
[2021-04-07 20:13] VITALS: BP 132/55; PULSE 80; TEMP 98.3
--- NOTE | 2021-04-07 20:30 | NUR ---
Patient is resting in bed complaining of pain in his back. Alert and oriented, 2L O2 NC. Assessment completed, medications provided. PRN provided for pain. Assessment completed, no further needs at this time. Bed alerm on.
[2021-04-08] VITALS (7 sets, daily range): BP systolic 101–138; BP diastolic 46–85; PULSE 61–75; TEMP 97.6–98.7
--- NOTE | 2021-04-08 06:18 | NUR ---
Pt refused morning medications, discharged in sharp container. He was educated about the function of each one but still refused. Pt complained about dry lips. Moisturized applied. He is ok receiving IV infusions. Pt continuously complains loudly about pain, but refused to take PRN medication. Pt continuous at 2 L O2 NC. No othe needs at this time. Call light within reach.
--- NOTE | 2021-04-08 08:20 | NUR ---
PT CRYING OUT DURING THE MORNING, ENTERED PT ROOM AND PT CALMED AND BEGAN TALKING, PT AOX4, REPORTS GENERALIZED PAIN AND STATES "THAT NORCO IS WHAT HURTS ME" THEN LATER CLARIFIED TO "KEAGAN BEEN TAKING IT FOR A FEW MONTHS AND IT DOES NOTHING FOR ME". PT REPOSITIONED, PT HAS HAD NO EPISODE OF INCONTINENCE, VITALS TAKEN AND REVIEWED, ASSESSMENT PERFORMED. ASKED IF PT WOULD TAKE MEDICATIONS THIS MORNING SINCE PT REFUSED YESTERDAY AND OVERNIGHT, PT STATES "YOU SEE PEOPLE KEEP TRYING TO GIVE ME THESE PILLS I DON'T NEED". EXPLAINED PURPOSE OF EACH MEDICATION, PT EVENTUALLY AGREED TO HIS ANTI DEPRESSANT, HEART MEDICATION, STEROID AND PAIN MEDS. NO OTHER NEEDS
--- NOTE | 2021-04-08 13:20 | NUR ---
TAYLOR faxed updates to Cheo at [employer] [employer].
--- NOTE | 2021-04-08 17:12 | NUR ---
PT SLEEPING THROUGH MOST OF SHIFT, EASILY AROUSABLE, IV SITE SHOWING SIGNS OF PHLEBITIS, NEW ONE STARTED TO RFA, IV ANX INFUSING PER ORDER, PT REFUSING MEALS WHEN AWAKE, NO OTHER NEEDS
--- NOTE | 2021-04-08 21:00 | NUR ---
Patient is sleeping in bed, VSS, some difficulty to wake him up. Accepted with difficulty to take his oral medications. Still at 2L NC. Assessment completed, no other needs at this time. Call light within reach.
[2021-04-09] VITALS (8 sets, daily range): BP systolic 115–173; BP diastolic 52–86; PULSE 66–91; TEMP 97.7–98
--- NOTE | 2021-04-09 06:14 | NUR ---
Pt had more frecuent periods of sleep. He took his medications while mixed with pudin or apple sauce in one tbs. Pt has been coughing. Continues at 2L O2 NC. Report will be given to day RN.
--- NOTE | 2021-04-09 08:45 | NUR ---
ASSESSMENT PERFORMED, PT ABLE TO HAVE CONVERSATION WITHOUT CRYING OUT, PT GETTING DIALYSIS, PAIN MEDS GIVEN CARE HOME THROUGH TREATMENT AND PT STATING "YOU'RE GIVING ME TOO MANY PILLS" WHEN REFERING TO HIS JOSE LUIS AND GUZMAN, PT THEN CRYING OUT WITH PAIN. .
[2021-04-09 09:33] LABS: EOS % 1.2 % (0.0-4.0); GRAN # 1.9 K/mm3 (1.4-6.5); GRAN % 58.2 % (42.2-75.2); HEMATOCRIT 43.8 % (42.0-52.0); HEMOGLOBIN 12.7 g/dl (13.5-18.0); LYMPH # 0.9 K/mm3 (1.2-3.4); LYMPH % 26.5 % (20.0-51.0); MEAN CELL VOLUME 95 fl (80.0-100.0); MEAN CORPUSCULAR HEMOGLOBIN 27 pg (27-31); MEAN CORPUSCULAR HGB CONC 29 g/dl (33.0-37.0); MEAN PLATELET VOLUME 9.2 fl (7.4-10.4); MONO # 0.5 K/mm3 (0.1-0.6); MONO % 13.8 % (1.7-9.3); PLATELET COUNT 108 K/mm3 (130-400); RED BLOOD COUNT 4.63 M/mm3 (4.20-5.60); REDCELL DISTRIBUTION WIDTH-CV 17.2 % (11.5-14.5)
[2021-04-09 09:53] LABS: ALBUMIN 2.3 gm/dL (3.4-4.8); ALKALINE PHOSPHATASE 1348 U/L (40-150); ANION GAP 16 mmol/L (7-16); AST,SGOT 12 U/L (5-34); BILIRUBIN,TOTAL 0.3 mg/dL (0.2-1.2); BLOOD UREA NITROGEN 58 mg/dL (8-26); C-REACTIVE PROTEIN 6.22 mg/dL (0.00-0.50); CALCIUM 8.2 mg/dL (8.4-10.2); CARBON DIOXIDE 21 mmol/L (23-31); CHLORIDE 104 mmol/L (98-107); CREATININE, serum 4.77 mg/dL (0.72-1.25); GLUCOSE 59 mg/dL (70-99); SODIUM 141 mmol/L (136-145); TOTAL PROTEIN 5.8 gm/dL (6.2-8.1)
[2021-04-09 09:57] LABS: ALANINE AMINOTRANSFERASE < 6 U/L (0-55)
--- NOTE | 2021-04-09 11:13 | NUR ---
BERONICA RN REPORTS PT HAVING CHEST PAIN, PT STATES "THE PAIN IS ALL OVER" BUT IS HAVING SOME IN CHEST, BERONICA IN CONTACT WITH BECKY PIERRE FOR FURTHER ACTION, VITALS STABLE.
--- NOTE | 2021-04-09 11:43 | NUR ---
PATIENT YELLING OUT IN PAIN DURING LAST HOUR OF HD TX DESPITE GIVEN FLEXRIL & NORCO PO. EKG ORDERED WITH C/O CHEST PAIN @ CENTER OF CHEST ALONG WITH BACK PAIN, RATED A #10 ON PAIN SCALE EVEN AN HOUR AFTER PAIN MEDS. DC'D TX 53 MINS EARLY FOR ALARMING TMP WITH INCREASED VENOUS PRESSURE, TROUBLESHOOTING UNSUCCESSFUL & [facility] PRESENT, OK TO DC TX EARLY. REMOVED 390 ML OF FLUID. NEXT PLANNED HD TX ON Monday04/12/21 @ 0800.
--- NOTE | 2021-04-09 12:16 | NUR ---
PT REPORTING NOT PASSING GAS WITH MORNING ASSESSMENT, ABD FIRM, PT HAD SMEAR OF BM YESTERDAY, MIRALAX GIVEN. TROPONIN PLACED PER VERBAL ORDER BY BECKY PIERRE, ORDER GIVEN TO SEE IF INTIAL TROPONIN IS ELEVATED, IF SO ORDER 3HR AND 6HR AND NOTIFY PHSYICIAN, IF INITIAL NOT ELEVATED DO NOT ORDER FURTHER TROPONINS AND NO NEED TO CONTACT PHYSICIAN.
--- NOTE | 2021-04-09 12:55 | NUR ---
BECKY PIERRE NOTIFIED OF CRITICAL TROPONIN, GAVE VERBAL ORDER TO TREND TROPONINS AND CONSULT CARDIOLOGY, ORDERS PLACED, CARDIOLOGY NOTFIED,
--- NOTE | 2021-04-09 13:55 | NUR ---
CRITICAL TROPONIN CALLED TO BECKY PIERRE. PT STILL CALLING OUT SAYING "OH MAMA, I CANT DO IT, OH MAMA I CANT DO IT NO MORE, IT HURT ME" OVER AND OVER. VITALS TAKEN AND DOCUMENTED, PT C/O CHAPPED LIPS WHILE CRYING OUT, PT THEN CRYING OUT BECAUSE OF PAIN, O2 INC TO 3L AND SATTING 93% ON THAT, BECKY GAVE VERBAL ORDER FOR NORCO ONE TIME NOW. NORCO GIVEN, CHAPSTICK PROVIDED, PT WILL STOP CRYING OUT AND SPEAK IN A NORMAL VOICE AND THEN GO BACK TO CRYING OUT. PT REPOSITIONED IN BED.
--- NOTE | 2021-04-09 14:13 | NUR ---
TAYLOR faxed updates to Cheo at [facility].
--- NOTE | 2021-04-09 15:03 | NUR ---
1500 NOTIFIED [facility] OF ARTERIAL SITE BLEEDING @ [facility] NOTED BY NURSE JULIAN WHICH SHE APPLIED PRESSURE TO EARLIER TODAY CANNULATION SITE FOR 10 MINS UNTIL HEMOSTASIS ACHIEVED.
--- NOTE | 2021-04-09 16:55 | NUR ---
PT CRYING OUT C/O CRUSHING CHEST PAIN RADIATING INTO BOTH ARMS, C/O PAIN IN WHOLE BODY. VITALS OBTAINED, PT SATTING 87% ON 3L NC, INC TO 4L SATTING 97%. BP SIGNIFICANTLY ELEVATED. DR. KULKARNI ON FLOOR AND NOTIFIED, VERBAL ORDER FOR NITRO PASTE AND DIAUDID GIVEN AND PLACED IN COMPUTER. DR. KULKARNI WENT TO SEE PT. CARDIOLOGY CALLED PER DR. KULKARNI REQUEST AND DR. ANDERS ORDERED CARVEDIOLOL AND IMDUR, ONE DOSE CARVEDILOL NOW. DR. ANDERS AGREED WITH DILAUDID AND NITRO PASTE ORDER. ALL ORDERS READ BACK TO PHYSICIAN TO VERIFY AND PLACED PER ORDER. MEDICATIONS GIVEN TO PT, AFTER 5MIN PT CRYING OUT STOPPED AND PT REPORTS DEC IN PAIN. WILL REASSESS BP 30MIN AFTER ADMINISTRATION OF DILAUDID, CARVEDILOL, AND NITRO PASTE.
--- NOTE | 2021-04-09 18:24 | NUR ---
TELE ORDERS PLACED PER DR. ANDERS'S ORDERS, TELE PLACED ON PT, PT SLEEPING IN BED, APPEARS COMFORTABLE, VITALS REVIEWED AFTER NITRO PASTE AND DILAUDID. CAYLA ORDERED TO DEFER REMOVAL OF NITRO PASTE TO PHARMACY, PHARMACY SAID TO REMOVE IT IN THE AM. DR. KULKARNI NOTIFIED OF CRITICAL TROPONIN AND PT STATUS AFTER MEDICATIONS, NO NEW ORDERS.
[2021-04-10 00:35] VITALS: BP 119/65; PULSE 71; TEMP 98.7
[2021-04-10 05:12] VITALS: BP 138/69; PULSE 64; TEMP 97.8
--- NOTE | 2021-04-10 06:34 | NUR ---
ASSESSMENT COMPLETE I CAN, DUE TO PT'S DROWSY STATE. PT VERY DROWSY AND UNABLE TO STAY AWAKE LONG ENOUGHT TO FOLLOW DIRECTIONS, ANSWER QUESTIONS OR TAKE ORAL MEDICATION. PT GIVEN DILAUDID AROUND 1633HRS AND HAS BEEN DROWSY THROUGHOUT THIS SHIFT. VS WNL. WILL CONTINUE TO CLOSELY MONITOR PT.
[2021-04-10 08:33] VITALS: BP 98/51; PULSE 67; TEMP 97.4
[2021-04-10 12:36] VITALS: BP 98/55; PULSE 65; TEMP 97.5
[2021-04-10 16:25] VITALS: BP 108/88; PULSE 67; TEMP 97.5
--- NOTE | 2021-04-10 18:21 | NUR ---
PT CONT TO REQUIRE 4 L NC. PT REFUSING MEALS, TAKING SIPS OF WATER. PT REFUSING MOST MEDS. PT YELLING OUT AT TIMES WHEN UNCOMFORTABLE IN BED BUT ISN'T DESCRIBING CHEST PAIN LIKE YESTERDAY.
[2021-04-10 20:52] VITALS: BP 119/53; PULSE 67; TEMP 97.5
[2021-04-11 00:29] VITALS: BP 110/55; PULSE 65; TEMP 97.4
--- NOTE | 2021-04-11 01:33 | NUR ---
ASSESSMENT COMPLETE FOR THIS SHIFT. PT RESTING IN BED NAPPING. PT COMPLAINED OF FEELING LIKE HE WAS NOT CHECKED ON ENOUGH TODAY. I EXPLAIN TO THE PT THAT IT'S PRETTY BUSY DURING THE DAY, BUT I WOULD DO MY BEST TO CHECK ON HIM EVERY HOUR. PT PREFERRED EVERY HALF HOUR. I TOLD HIM I WOULD DO MY BEST. PT ALSO COMPLAINED OF GENERALIZED PAIN. PT GIVEN SCHEDULED NEURONTIN FOR PAIN, ALONG WITH HIS EVENING MEDS. I'VE CHECKED ON PT THROUGHOUT THE NIGHT, WHEN PT WAS NOT ASLEEP, PT REQUESTED REPOSITIONING, LIP BALM PLACED ON HIS LIPS AND WATER. WILL CONTINUE TO CHECK ON PT. PT STATES HE HAS NO OTHER NEEDS AT THIS TIME. CALL LIGHT WITHIN REACH.
[2021-04-11 04:35] VITALS: BP 101/55; PULSE 85; TEMP 97.4
[2021-04-11 08:59] VITALS: BP 130/62; PULSE 74; TEMP 97.7
--- NOTE | 2021-04-11 10:06 | NUR ---
Patient repositioned in bed by this RN and PCT (Rimma). Patient c/o pain in his middle back, which is relieved w/ repositioning. Patient to be repositioned q2h. A&Ox4, but paranoid that we are trying to hurt him. Upset that we cannot be in the room w/ him constantly, this RN informed him that we could not be in there / d/t him having covid.
--- NOTE | 2021-04-11 10:45 | NUR ---
ATTEMPTED TO GET LABS DRAWN FOR MORNING LABS, HOWEVER WAS UNSUCCESSFUL. THIS PATIENT WAS COMPLAINING OF PAIN WELL SOME CHEST PAIN WHILE THIS RN WAS IN THE ROOM. NOTIFIED PRIMARY RN. VITALS OBTAINED, HR AT 71BPM. NO CONCERNS THIS RN WAS EXITING THE ROOM.
[2021-04-11 11:27] VITALS: BP 82/56; PULSE 79; TEMP 97.4
[2021-04-11 15:44] VITALS: BP 110/58; PULSE 71; TEMP 97.5
--- NOTE | 2021-04-11 18:04 | NUR ---
Patient has been sleeping on and off all day. Patient is easy to arouse and has not had any issues. Patients refuses to eat anything, this RN and PCT have tried multiple times.
[2021-04-11 19:51] VITALS: BP 103/83; PULSE 72; TEMP 97.3
[2021-04-12 00:32] VITALS: BP 104/56; PULSE 78; TEMP 97.6
[2021-04-12 04:06] VITALS: BP 107/51; PULSE 79; TEMP 97.5
--- NOTE | 2021-04-12 05:34 | NUR ---
ASSESSMENT COMPLETE FOR THIS SHIFT. PT LAYING IN BED FALLING IN AND OUT OF SLEEP. PT COMPLAINED OF GENERALIZED PAIN TONIGHT AGAIN. PT REPOSITIONED AND SCHEDULED NEURONTIN AND FLEXERIL GIVEN FOR PAIN. PT DENIES PALPITATIONS, SOB OR DIZZNESS AT THIS TIME. PT CONTINUES TO WANT ME TO STAY IN THE ROOM WITH HIM. I STAY FOR A LITTLE WHILE UNTIL HE CALMS A BIT, THEN TELL HIM, I WILL BE BACK TO CHECK ON HIM, WHICH I DO OFTEN I CAN. PT STATES HE JUST NEEDS ME TO COME BACK SOON, WHEN ASKED IF I CAN GET OR DO ANYTHING ELSE FOR HIM. WILL CONTINUE TO CHECK ON PT. CALL LIGHT WITHIN REACH.
[2021-04-12 08:51] VITALS: BP 117/59; PULSE 79; TEMP 97.5
[2021-04-12 09:35] LABS: BASO % 0.2 % (0.0-2.0); EOS # 0.1 K/mm3 (0.0-0.7); EOS % 1.8 % (0.0-4.0); GRAN # 2.7 K/mm3 (1.4-6.5); GRAN % 59.4 % (42.2-75.2); HEMATOCRIT 39.3 % (42.0-52.0); HEMOGLOBIN 11.9 g/dl (13.5-18.0); LYMPH # 1.2 K/mm3 (1.2-3.4); LYMPH % 27.3 % (20.0-51.0); MEAN CELL VOLUME 93 fl (80.0-100.0); MEAN CORPUSCULAR HEMOGLOBIN 28 pg (27-31); MEAN CORPUSCULAR HGB CONC 30 g/dl (33.0-37.0); MONO # 0.5 K/mm3 (0.1-0.6); MONO % 10.9 % (1.7-9.3); PLATELET COUNT 101 K/mm3 (130-400); RED BLOOD COUNT 4.25 M/mm3 (4.20-5.60); REDCELL DISTRIBUTION WIDTH-CV 17.6 % (11.5-14.5)
[2021-04-12 09:46] LABS: ALBUMIN 2.3 gm/dL (3.4-4.8); CALCIUM 6.3 mg/dL (8.4-10.2); CREATININE, serum 4.93 mg/dL (0.72-1.25); POTASSIUM 5.6 mmol/L (3.5-4.5)
--- NOTE | 2021-04-12 10:30 | NUR ---
Patient laying in bed, sleeping but easy to arouse. 0700 medications not administered by shift supervisor RN, as patient was asleep. This RN is waiting to administer medications, as patient is currently dialyzing.
[2021-04-12 11:59] LABS: ARTERIAL BLD GAS O2 SATURATION 92.5 % (92-100); ARTERIAL BLOOD GAS BASE EXCESS -2.3 (-2-2); ARTERIAL BLOOD GAS HCO3 26.9 meq/L (22-26); ARTERIAL BLOOD GAS PO2 65.6 mmHg (80-100); ARTERIAL BLOOD GAS pH 7.22 (7.35-7.45)
[2021-04-12 12:31] VITALS: BP 138/74; PULSE 78; TEMP 97.5
--- NOTE | 2021-04-12 12:32 | NUR ---
Patient tolerated HD tx with 792 mL of fluid removed. Attempted increased fluid removal & patient c/o chest pain radiating through back longterm through tx. Patient unable to rate pain. Resolved with UF off. O2 decreased to 2L from 4L with O2 Sat @ 100%. Next planned HD tx on Monday04/14/21 @ 0800.
--- NOTE | 2021-04-12 12:54 | NUR ---
Esther, RN with Dr. Spivey, notified TAYLOR that the patient may be ready to discharge tomorrow. TAYLOR notified and faxed updates to Cheo at [facility]. The patient's repeat COVID test came back positive. Esther is working with her team on when the patient can resume dialysis at [facility], because of his positive status. TAYLOR informed Cheo of this. TAYLOR to continue to follow.
--- NOTE | 2021-04-12 15:42 | NUR ---
Patient still refusing to eat much. Renvela being held, as patient is not eating anything that contains phosphorus. Patient has only taken 5 bites of peaches, and is drinking some juices. Patient remains drowsy, but has not been given any PRN narcotics this shift. Esther assessed. Call light is w/in reach. This RN will continue to encourage oral intake.
[2021-04-12 16:14] VITALS: BP 124/66; PULSE 84; TEMP 97.9
[2021-04-12 19:33] VITALS: BP 109/58; PULSE 81; TEMP 97.4
[2021-04-13 00:25] VITALS: BP 116/66; PULSE 86; TEMP 97.8
[2021-04-13 03:59] VITALS: BP 114/65; PULSE 80; TEMP 97.3
[2021-04-13 08:05] LABS: BASO % 0.2 % (0.0-2.0); EOS # 0.1 K/mm3 (0.0-0.7); EOS % 1.6 % (0.0-4.0); GRAN # 2.5 K/mm3 (1.4-6.5); GRAN % 58.7 % (42.2-75.2); HEMOGLOBIN 10.6 g/dl (13.5-18.0); LYMPH # 1.2 K/mm3 (1.2-3.4); LYMPH % 27.6 % (20.0-51.0); MEAN CELL VOLUME 92 fl (80.0-100.0); MEAN CORPUSCULAR HEMOGLOBIN 28 pg (27-31); MEAN CORPUSCULAR HGB CONC 30 g/dl (33.0-37.0); MEAN PLATELET VOLUME 10.5 fl (7.4-10.4); MONO # 0.5 K/mm3 (0.1-0.6); MONO % 11.4 % (1.7-9.3); PLATELET COUNT 75 K/mm3 (130-400); RED BLOOD COUNT 3.84 M/mm3 (4.20-5.60); REDCELL DISTRIBUTION WIDTH-CV 17.6 % (11.5-14.5)
[2021-04-13 08:10] LABS: HEMATOCRIT 35.3 % (42.0-52.0)
[2021-04-13 08:15] LABS: ALBUMIN 2.1 gm/dL (3.4-4.8); CALCIUM 6.2 mg/dL (8.4-10.2); CREATININE, serum 3.34 mg/dL (0.72-1.25); PHOSPHOROUS 3.7 mg/dL (2.3-4.7); POTASSIUM 4.4 mmol/L (3.5-4.5)
[2021-04-13 08:27] VITALS: BP 101/61; PULSE 92; TEMP 98.3
--- NOTE | 2021-04-13 08:27 | NUR ---
ASSESSMENT COMPLETE FOR THE SHIFT. PT RESTING IN BED DOZING ON AND OFF. PT COMPLAINS OF GENERALIZED PAIN. PT GIVEN NEURONTIN, FLEXERIL AND REPOSITIONED TO RELIVE PAIN. PT CONTINUES TO WANT TO BE CHECKED ON EVERY 30 MINUTES AND WANTS ME TO STAY IN HIS ROOM, AND TALK TO HIM, HELP HIM WITH HIS CHAPPED LIPS, REPOSITION HIM AND MOVE THE HEAD OF HIS BED UP AND DOWN OVER AND OVER UNTIL HE IS COMFORTABLE. PT DID TRY THE BIPAP TONIGHT, BUT IT DIDN'T GO WELL. PT DENIES PALPITATIONS, SOB OR DIZZINESS. PT'S CALL LIGHT WITHIN REACH.
--- NOTE | 2021-04-13 10:00 | NUR ---
Assumed care of pt. Pt bed bound with chronic deformities. pt is alert and appears to be in no distress. PT stated that he does not have much of an appetite. Will take PO pills 2 at a time with water but then wants a break between pills.
[2021-04-13 11:26] LABS: ARTERIAL BLOOD GAS PCO2 67.5 mmHg (35-45)
[2021-04-13 11:45] VITALS: BP 104/57; PULSE 74; TEMP 98.3
--- NOTE | 2021-04-13 14:51 | NUR ---
TAYLOR faxed updates to Cheo at [facility].
[2021-04-13 17:21] VITALS: BP 116/65; PULSE 72; TEMP 97.5
[2021-04-13 20:47] VITALS: BP 121/63; PULSE 74; TEMP 97.8
--- NOTE | 2021-04-13 22:00 | NUR ---
Patient is resting in bed, alert and oriented x 4, reports constant pain but refuses medication options. 2.5L O2 NC. Telemetry in place, NSR 70'S. Assessment completed, medications provided. No further needs at this time. Call light within reach. Bed alar on.
[2021-04-14 00:47] VITALS: BP 108/59; PULSE 57; TEMP 98.2
[2021-04-14 04:34] VITALS: BP 105/61; PULSE 73; TEMP 97.8
--- NOTE | 2021-04-14 06:38 | NUR ---
Pt has had a calm night. He was wearing the Bipap for some hrs. Right now he is with the NC 2.5 L O2. He took all his medications. Continues complaining of general discomfort and back pain. Report will be given to day RN.
[2021-04-14 08:00] VITALS: BP 98/52; PULSE 76; TEMP 98.3
[2021-04-14 08:19] LABS: BASO % 0.2 % (0.0-2.0); EOS # 0.1 K/mm3 (0.0-0.7); EOS % 3.2 % (0.0-4.0); GRAN # 2.2 K/mm3 (1.4-6.5); GRAN % 54.4 % (42.2-75.2); HEMOGLOBIN 11.2 g/dl (13.5-18.0); LYMPH # 1.2 K/mm3 (1.2-3.4); LYMPH % 29.4 % (20.0-51.0); MEAN CELL VOLUME 89 fl (80.0-100.0); MEAN CORPUSCULAR HEMOGLOBIN 27 pg (27-31); MEAN CORPUSCULAR HGB CONC 31 g/dl (33.0-37.0); MEAN PLATELET VOLUME 10.2 fl (7.4-10.4); MONO # 0.5 K/mm3 (0.1-0.6); MONO % 12.6 % (1.7-9.3); PLATELET COUNT 75 K/mm3 (130-400); RED BLOOD COUNT 4.11 M/mm3 (4.20-5.60); REDCELL DISTRIBUTION WIDTH-CV 17.5 % (11.5-14.5)
[2021-04-14 08:25] LABS: HEMATOCRIT 36.5 % (42.0-52.0)
[2021-04-14 08:32] LABS: CALCIUM 6.2 mg/dL (8.4-10.2); CREATININE, serum 3.94 mg/dL (0.72-1.25); PHOSPHOROUS 4.2 mg/dL (2.3-4.7); POTASSIUM 4.8 mmol/L (3.5-4.5)
--- NOTE | 2021-04-14 10:31 | NUR ---
The clinical team is recommending a bipap at night. Esther, with Dr. Spivey, and the patient's son, Aristides, encouraged the patient to use it. SW staffed with RT. The patient did use the bipap around 4 hours last night. SW obtained the patient's bipap settings from RT. SW notified and provided the bipap settings to Cheo at [facility]. [facility] is working on getting a bipap the patient can use. [facility] is also [facility] are good to [facility] the patient back today, with his COVID status. SW contacted and updated the patient's son, Aristides, on the above. Aristides is in agreement to the plan. SW read the IM form outloud to Aristides. Aristides verbalized understanding and gave SW approval to sign the form on his behalf. Aristides reports that he will likely be unavailable by phone from [phone]. He reports that his brother, Lc, is working today and may not answer his phone either.
--- NOTE | 2021-04-14 11:30 | NUR ---
Report received from NANCY Melton . PT in room with dialysis nurse, receiving dialysis at this time, will continue to monitor.
[2021-04-14 13:16] VITALS: BP 145/77; PULSE 83; TEMP 97.9
--- NOTE | 2021-04-14 13:17 | NUR ---
PATIENT TOLERATED HD TX WITH 1L OF FLUID REMOVED. ATTEMPTED INCREASED FLUID REMOVAL & PATIENT BECAME HYPOTENSIVE. NEXT PLANNED HD TX ON Monday04/16/21 @ 0800.
[2021-04-14] MEDS ORDERED: COREG 3.123.125 MG/T PO (14:37)
[2021-04-14] MEDS ORDERED: IMDUR 30MG30 MG/TAB PO (14:37)
--- NOTE | 2021-04-14 14:41 | NUR ---
Report called to [facility] nurse. Pt INTs removed, tips intact. Tele removed. Pt had large incontinent bowel movement, cleaned and new brief applied. Pt has bloody nose from oxygen, but unable to keep gauze in nose and c/o not being able to breath through nose. Reeducated on need to keep gauze in until able to stop nose bleed. Pt agreeable but unable to keep gauze in without needing to be re-educated. Bed alarm on, will continue to monitor until transport arrives.
[2021-04-14] MEDS ORDERED: DECADRON 1MG TAB1 MG PO (14:43)
--- NOTE | 2021-04-14 14:44 | NUR ---
[facility] to [facility]. TAYLOR faxed the patient's information and the script to [facility]. Cheo, at [facility], reports that they are able to take the patient back today. TAYLOR notified the patient's son, Aristides, of transfer this afteroon. Aristides was in agreement to the plan and had no other questions for SW. The patient is to discharge today, 04/14, back to [facility] for long-term care. Transportation was scheduled at 1530, via [facility]. No additional needs at this time.
[2021-04-14 14:50] VITALS: BP 145/77; PULSE 83; TEMP 97.9
--- NOTE | 2021-04-14 15:45 | NUR ---
Pt left via w/c with [facility] staff. Criteria met
== END 2021-04-14 15:45 | DRG 177 ==
LOC: MEDICAL 17:24
PROVIDERS: Internal Medicine Sleep Medicine; Nurse Practitioner; Registered Nurse; ADMIT Internal Medicine Nephrology
PROC: XW033E5 Introduction of Remdesivir Anti-infective into Peripheral Vein, Percutaneous Approach, New Technology Group 5 (ICD-10-PCS; 2021-04-06)
PROC: 5A1D70Z Performance of Urinary Filtration, Intermittent, Less than 6 Hours Per Day (ICD-10-PCS; principal; 2021-04-07)
PROC: 5A09357 Assistance with Respiratory Ventilation, Less than 24 Consecutive Hours, Continuous Positive Airway Pressure (ICD-10-PCS; 2021-04-14)
DX: U07.1 COVID-19 (principal); N18.6 End stage renal disease; J12.82 Pneumonia due to coronavirus disease 2019; I12.0 Hypertensive chronic kidney disease with stage 5 chronic kidney disease or end stage renal disease; D84.9 Immunodeficiency, unspecified; E87.2 Acidosis; T82.898A Other specified complication of vascular prosthetic devices, implants and grafts, initial encounter; E46 Unspecified protein-calorie malnutrition; E89.0 Postprocedural hypothyroidism; D63.1 Anemia in chronic kidney disease; G89.29 Other chronic pain; M10.9 Gout, unspecified; N40.0 Benign prostatic hyperplasia without lower urinary tract symptoms; E87.5 Hyperkalemia; E21.2 Other hyperparathyroidism; R07.9 Chest pain, unspecified; Y71.1 Therapeutic (nonsurgical) and rehabilitative cardiovascular devices associated with adverse incidents; Z99.2 Dependence on renal dialysis; Z79.82 Long term (current) use of aspirin; Z87.891 Personal history of nicotine dependence; Z23 Encounter for immunization
CPT/HCPCS: OP; J0248; J0696; J1170; J1644; J7030; J8540

== ENCOUNTER → 2021-05-05 | Outpatient (CLI) | payer MEDICARE, OTHER ==
[~2021-05-05] MED LIST changes: +COREG 3.123.125 MG/T PO; +DECADRON 1MG TAB1 MG PO; +FLEXERIL5 MG PO; +IMDUR 30MG30 MG/TAB PO; +MUCINEX DM 30 M1 TE1 PO; +OXYGEN NASAL.CANN; +TOPROL XL 25MG25 MG PO; +[UNRECOGNIZED DRUG - OTHER] PO
== END ==
LOC: ZLAB.STJ 13:11
DX: N18.9 Chronic kidney disease, unspecified (principal); D63.1 Anemia in chronic kidney disease

== ENCOUNTER → 2021-05-06 | Outpatient (CLI) | payer MEDICARE, OTHER | LOC: ZLAB.STJ 09:48 | DX: N18.9 Chronic kidney disease, unspecified (principal); D63.1 Anemia in chronic kidney disease ==

== ENCOUNTER → 2021-05-14 | Outpatient (CLI) | payer MEDICARE, OTHER ==
[2021-05-14 19:01] LABS: BASO % 0.7 % (0.0-2.0); EOS # 0.1 K/mm3 (0.0-0.7); EOS % 1.8 % (0.0-4.0); GRAN # 3.1 K/mm3 (1.4-6.5); GRAN % 69.3 % (42.2-75.2); LYMPH # 0.7 K/mm3 (1.2-3.4); LYMPH % 14.9 % (20.0-51.0); MEAN CELL VOLUME 104 fl (80.0-100.0); MEAN CORPUSCULAR HGB CONC 28 g/dl (33.0-37.0); MEAN PLATELET VOLUME 9.3 fl (7.4-10.4); MONO # 0.6 K/mm3 (0.1-0.6); MONO % 13.1 % (1.7-9.3); PLATELET COUNT 266 K/mm3 (130-400); RED BLOOD COUNT 3.02 M/mm3 (4.20-5.60); REDCELL DISTRIBUTION WIDTH-CV 19.7 % (11.5-14.5)
[2021-05-14 19:05] LABS: HEMATOCRIT 31.4 % (42.0-52.0); HEMOGLOBIN 8.7 g/dl (13.5-18.0); MEAN CORPUSCULAR HEMOGLOBIN 29 pg (27-31)
[2021-05-14 19:09] LABS: ALBUMIN 1.8 gm/dL (3.4-4.8); ALKALINE PHOSPHATASE 625 U/L (40-150); ANION GAP 10 mmol/L (7-16); AST,SGOT 8 U/L (5-34); BILIRUBIN,TOTAL 0.3 mg/dL (0.2-1.2); BLOOD UREA NITROGEN 38 mg/dL (8-26); CALCIUM 7.4 mg/dL (8.4-10.2); CARBON DIOXIDE 24 mmol/L (23-31); CHLORIDE 106 mmol/L (98-107); CREATININE, serum 4.21 mg/dL (0.72-1.25); GLUCOSE 74 mg/dL (70-99); POTASSIUM 5.2 mmol/L (3.5-4.5); SODIUM 140 mmol/L (136-145); TOTAL PROTEIN 5.6 gm/dL (6.2-8.1)
[2021-05-14 19:10] LABS: ALANINE AMINOTRANSFERASE < 6 U/L (0-55)
[2021-05-14 19:29] LABS: THYROID STIMULATING HORMONE 6.355 uIU/mL (0.350-4.940)
== END ==
LOC: ZLAB.STJ 16:56
PROVIDERS: Internal Medicine
DX: N18.6 End stage renal disease (principal); D63.1 Anemia in chronic kidney disease; R41.9 Unspecified symptoms and signs involving cognitive functions and awareness; Z99.2 Dependence on renal dialysis

== ENCOUNTER 2021-05-19 06:02 | Emergency (ER) | payer MEDICARE, OTHER ==
[~2021-05-19] VITALS: Ht 180.3 cm; Wt 59.1 kg
[2021-05-19 07:37] LABS: BASO % 0.3 % (0.0-2.0); EOS # 0.1 K/mm3 (0.0-0.7); GRAN # 5.1 K/mm3 (1.4-6.5); GRAN % 76.4 % (42.2-75.2); HEMATOCRIT 44.2 % (42.0-52.0); LYMPH # 0.8 K/mm3 (1.2-3.4); MEAN CORPUSCULAR HEMOGLOBIN 29 pg (27-31); MEAN CORPUSCULAR HGB CONC 27 g/dl (33.0-37.0); MEAN PLATELET VOLUME 8.9 fl (7.4-10.4); MONO # 0.6 K/mm3 (0.1-0.6); MONO % 9.1 % (1.7-9.3); PLATELET COUNT 247 K/mm3 (130-400); RED BLOOD COUNT 4.13 M/mm3 (4.20-5.60); REDCELL DISTRIBUTION WIDTH-CV 19.4 % (11.5-14.5)
[2021-05-19 07:38] LABS: MEAN CELL VOLUME 107 fl (80.0-100.0)
[2021-05-19 08:44] LABS: ALBUMIN 2.2 gm/dL (3.4-4.8); ALKALINE PHOSPHATASE 794 U/L (40-150); ANION GAP 12 mmol/L (7-16); AST,SGOT 8 U/L (5-34); BILIRUBIN,TOTAL 0.3 mg/dL (0.2-1.2); BLOOD UREA NITROGEN 70 mg/dL (8-26); C-REACTIVE PROTEIN 2.72 mg/dL (0.00-0.50); CALCIUM 8.5 mg/dL (8.4-10.2); CARBON DIOXIDE 22 mmol/L (23-31); CHLORIDE 105 mmol/L (98-107); CREATININE, serum 5.98 mg/dL (0.72-1.25); GLUCOSE 94 mg/dL (70-99); MAGNESIUM 2.5 mg/dL (1.6-2.6); SODIUM 139 mmol/L (136-145); TOTAL PROTEIN 6.6 gm/dL (6.2-8.1)
[2021-05-19 08:46] LABS: ALANINE AMINOTRANSFERASE < 6 U/L (0-55)
[2021-05-19 08:48] LABS: POTASSIUM 7.4 mmol/L (3.5-4.5)
[2021-05-19 08:52] LABS: TROPONIN-I 0.061 ng/mL (0.00-0.033)
[2021-05-19 16:03] VITALS: BP 131/58; PULSE 90; TEMP 97.4
--- NOTE | 2021-05-19 16:49 | NUR ---
PATIENT TOLERATED HD TX WITH 956ML OF FLUID REMOVED. NEXT PLANNED HD TX ON Monday05/21/21 @ [facility] @ 8031.
== END 2021-05-19 17:10 | disposition home or self-care (01) ==
LOC: COL.ER 06:02
PROVIDERS: Emergency Medicine
DX: N18.9 Chronic kidney disease, unspecified (principal); E87.5 Hyperkalemia; Z99.2 Dependence on renal dialysis; Z99.81 Dependence on supplemental oxygen
CPT/HCPCS: J1644; J7030

== ENCOUNTER 2021-05-20 23:09 | Emergency (ER) | payer MEDICARE, OTHER ==
[~2021-05-20] VITALS: Ht 167.6 cm; Wt 59.1 kg
[2021-05-20 23:11] VITALS: TEMP 98.8
[2021-05-20 23:45] LABS: BASO % 0.4 % (0.0-2.0); EOS % 0.8 % (0.0-4.0); GRAN # 3.1 K/mm3 (1.4-6.5); GRAN % 61.6 % (42.2-75.2); INR 1.2 (0.8-3.0); LYMPH # 1.1 K/mm3 (1.2-3.4); LYMPH % 20.8 % (20.0-51.0); MEAN CELL VOLUME 103 fl (80.0-100.0); MEAN CORPUSCULAR HGB CONC 28 g/dl (33.0-37.0); MEAN PLATELET VOLUME 9.5 fl (7.4-10.4); MONO # 0.8 K/mm3 (0.1-0.6); MONO % 16.2 % (1.7-9.3); PLATELET COUNT 216 K/mm3 (130-400); PROTHROMBIN TIME 13.6 SECONDS (9.7-12.8); RED BLOOD COUNT 3.28 M/mm3 (4.20-5.60); REDCELL DISTRIBUTION WIDTH-CV 18.9 % (11.5-14.5)
[2021-05-20 23:48] LABS: HEMATOCRIT 33.7 % (42.0-52.0); MEAN CORPUSCULAR HEMOGLOBIN 29 pg (27-31); PARTIAL THROMBOPLASTIN TIME 37.5 SECONDS (26.0-37.0)
[2021-05-20 23:49] LABS: HEMOGLOBIN 9.5 g/dl (13.5-18.0)
[2021-05-20 23:56] LABS: ALKALINE PHOSPHATASE 639 U/L (40-150); ANION GAP 12 mmol/L (7-16); AST,SGOT 11 U/L (5-34); BILIRUBIN,TOTAL 0.3 mg/dL (0.2-1.2); BLOOD UREA NITROGEN 50 mg/dL (8-26); CALCIUM 8.7 mg/dL (8.4-10.2); CARBON DIOXIDE 23 mmol/L (23-31); CHLORIDE 104 mmol/L (98-107); CREATININE, serum 4.57 mg/dL (0.72-1.25); GLUCOSE 72 mg/dL (70-99); POTASSIUM 5.6 mmol/L (3.5-4.5); SODIUM 139 mmol/L (136-145); TOTAL PROTEIN 5.8 gm/dL (6.2-8.1)
[2021-05-21 00:06] LABS: ALANINE AMINOTRANSFERASE < 6 U/L (0-55)
[2021-05-21 00:07] LABS: TROPONIN-I 0.176 ng/mL (0.00-0.033)
[2021-05-21 01:23] VITALS: BP 119/68; PULSE 104
== END 2021-05-21 01:23 | disposition home or self-care (01) ==
LOC: COL.ER 23:09
PROVIDERS: Emergency Medicine
DX: I12.0 Hypertensive chronic kidney disease with stage 5 chronic kidney disease or end stage renal disease (principal); N18.6 End stage renal disease; R41.0 Disorientation, unspecified; R79.89 Other specified abnormal findings of blood chemistry; D63.1 Anemia in chronic kidney disease; E21.3 Hyperparathyroidism, unspecified; E03.9 Hypothyroidism, unspecified; Z99.2 Dependence on renal dialysis; Z20.822 Contact with and (suspected) exposure to COVID-19; Z79.890 Hormone replacement therapy; Z79.899 Other long term (current) drug therapy